=== PATIENT | female | born 1995 | race Caucasian/White ===

== ENCOUNTER 2020-01-21 23:22 | Emergency (ER) | payer SELFPAY ==
[2020-01-22 00:47] VITALS: BP 111/66; PULSE 69; RESP 18; TEMP 36.6; O2SAT 99; BMI 22.1
== END 2020-01-22 01:53 ==
LOC: ER 23:28
PROVIDERS: Emergency Provider Emergency Medicine; PCP Family Medicine
DX: Z53.21 Procedure and treatment not carried out due to patient leaving prior to being seen by health care provider (principal)
CPT/HCPCS: 99281

== ENCOUNTER 2020-02-16 05:21 | Emergency (ER) | payer SELFPAY ==
[2020-02-16 05:24] VITALS: BP 117/69; PULSE 67; RESP 18; TEMP 37; O2SAT 99; BMI 23.0
--- NOTE | 2020-02-16 05:37 | XRR_ITS ---
PROCEDURE INFORMATION: Exam: XR Chest, 2 Views Exam date and time: 02/16/2020 6:00 AM Age: 25 years old Clinical indication: Cough TECHNIQUE: Imaging protocol: XR of the chest Views: 2 views. COMPARISON: CR Chest 1 [place] [id number] 04/08/2019 9:14 PM FINDINGS: Lungs: Hyperinflation, without acute infiltrate. Pleural space: No pleural effusion. Heart/Mediastinum: No cardiomegaly. Bones/joints: Unremarkable. XR/XR chest 2V* [id number] IMPRESSION: Hyperinflation, without acute infiltrate.
--- NOTE | 2020-02-16 05:37 | ECG_ITS ---
[facility] Test Date: 2020-02-16 Pat Name: Autumn Cochran Department: Room: Gender: Female Sales Data Analyst: : 1995 Requested By: Teddy Marin Order Number: [id number] Saravia MD: Kat Harkins M.D. Measurements Intervals Grace Rate: 57 P: 56 MN: 143 QRS: 79 QRSD: 83 T: 57 QT: 400 QTc: 391 Interpretive Statements SINUS BRADYCARDIA WITH SINUS ARRHYTHMIA No previous ECG available for comparison Electronically Signed On 02-16-2020 8:23:45 CDT by Kat Harkins M.D. [email or web address]
--- NOTE | 2020-02-16 05:38 | PC.NURSE ---
patient states she started feeling sick about a week ago with a sore throat and sinus drainage. patient states that she started having a cough three days ago and then today woke up gasping for breath.
[2020-02-16 05:45] VITALS: BP 114/70; PULSE 62; RESP 16; O2SAT 97
[2020-02-16 06:42] LABS: SARS Covid-2 Antigen Negative (Negative)
--- NOTE | 2020-02-16 06:47 | ED_ITS ---
HPI - URI/Sore Throat General: Chief Complaint: Upper Respiratory Infection Stated Complaint: cp/sob Time Seen by Provider: 02/16/20 06:03 Source: patient Mode of arrival: ambulatory Limitations: no limitations History of Present Illness: HPI Narrative: Autumn is a nice 25-year-old female who comes in complaining of cough and shortness of breath. Her cough is dry nonproductive. She had chest pain with her cough earlier today. She denies any leg pain or swelling. She is unaware of any fevers or chills. Chest pains related right to her retrosternal area and is described as sharp and intermittent in nature. Symptoms have been going on for about the past 3 days but the chest pain and shortness of breath just started today. Patient is unaware of any exacerbating or alleviating factors and she is not tried anything at home for this prior to coming in. Patient has no known COVID-19 exposures. Associated symptoms: Reports chest pain; Deny abdominal pain, chills, diarrhea, fever(s), headache(s), nausea or vomiting Review of Systems Const: Denies: fever(s), chills or body aches Eyes: Denies: change in vision ENMT: Denies: throat pain Card: Reports: chest pain; Denies: palpitations, syncope, pre-syncope or dyspnea on exertion Resp: Reports: dyspnea and non-productive cough; Denies: productive cough GI: Denies: abdominal pain, nausea, vomiting or diarrhea : Denies: flank pain, dysuria, urinary frequency or urinary urgency Musc: Denies: neck pain, back pain or extremity pain Skin/Breast: Denies: rash or pruritus Neuro: Denies: headache(s), numbness in extremities, weakness in extremities or dizziness Sam/Lymph: Denies: easy bruising or easy bleeding All/Imm: Denies: urticaria PFSH ED PFSH: Medical History (Updated 02/16/20 @ 08:01 by Fiordaliza Taylor) No pertinent past medical history Surgical History (Updated 02/16/20 @ 06:49 by Fiordaliza Taylor) No pertinent past surgical history Physical Exam Const: COMMON NORMALS: no acute distress, patient oriented x3, no limitations, healthy appearing and well nourished GENERAL APPEARANCE: cooperative, well kempt and well developed HENMT: COMMON NORMALS: normocephalic, atraumatic, external ears normal, EAC's normal and Normal external nose present HEAD & SCALP: normal to inspection, normocephalic and atraumatic FACE & SINUS: normal facial exam and face symmetric NOSE: Normal external nose present and Normal nares present EXTERNAL EAR: Yes external ears normal EXTERNAL AUDITORY CANAL: EAC's normal MOUTH: Normal oral and palatal mucosa present, lip normal and tongue normal Eye: COMMON NORMALS: Equal, round and reactive pupils present and conjunctivae normal GENERAL EYE: appearance normal, both eyes and all related structures ALIGNMENT: Yes alignment normal PERIORBITAL: periorbital findings normal EYELID: eyelids normal CONJUNCTIVA: Yes conjunctivae normal SCLERA: sclerae normal PUPIL: Yes Equal, round and reactive pupils present Neck/C-Spine: COMMON NORMALS: full ROM, no lymphadenopathy, supple, no meningeal signs and no JVD GENERAL: Yes normal visual inspection and Yes trachea midline Chest: COMMONS NORMALS: normal inspection of the chest and normal palpation of entire chest wall Resp: COMMON NORMALS: normal respiratory effort, No retractions and No use of accessory muscles EFFORT & INSPECTION: Yes able to speak in complete sentences and Yes symmetric chest movement AUSCULTATION: no crackles, no rales, no rhonchi and no wheezes Cardio: COMMON NORMALS: no JVD, regular rate, regular rhythm, S1 normal heart sound present and S2 normal heart sound present RATE: regular rate RHYTHM: regular rhythm HEART SOUNDS: S1 normal heart sound present, S2 normal heart sound present, no click, no gallops, no murmurs, no rubs and abnormal split S2 GI: COMMON NORMALS: Soft to palpation and No hepatosplenomegaly present PALPATION: Yes Soft to palpation, No Tenderness to palpation present (GI), No Guarding due to palpation present (GI), No Rigid due to palpation, Yes No hepatosplenomegaly present, No Hernia present, No Palpable mass present and No Pulsatile mass present : COMMON NORMALS: Yes no CVA tenderness BLADDER/KIDNEY EXAM: Yes no CVA tenderness EXTERNAL FEMALE EXAM: No Hernia present Back/Pelvis: COMMON NORMALS: no CVA tenderness, thoracic and lumbar spine normal to inspection, no thoracic nor lumbar tenderness and thoraco-lumbar ROM normal Extremity: COMMON NORMALS: normal to inspection, full ROM, capillary refill normal, no joint enlargement, no clubbing, cyanosis or edema and no calf tenderness Neuro: COMMON NORMALS: patient oriented x3, CN's II-XII intact bilaterally, moves all extremities, no focal motor deficits and no sensory deficits noted MENINGEAL SIGNS: Yes no meningeal signs SPEECH: speech normal Psych: COMMON NORMALS: mental status grossly normal, Normal thought process present, cooperative, normal affect, speech normal and activity/motor behavior normal APPEARANCE: Yes well kempt SPEECH: Yes normal speech THOUGHT PROCESS: Normal thought process present Skin: COMMON NORMALS: no rashes or lesions noted, turgor normal, no jaundice, no petechiae and no mottling GENERAL SKIN EXAM: no rashes or lesions noted and turgor normal Course Vital Signs: Vital signs: Vital Signs Temperature 98.6 F 02/16/20 05:24 Pulse Rate 47 L 02/16/20 08:05 Respiratory Rate 14 02/16/20 08:05 Blood Pressure 94/55 02/16/20 08:05 Pulse Oximetry 99 02/16/20 08:05 MDM - URI/Sore Throat MDM Narrative: Medical decision making narrative: Autumn is a nice 25-year-old female who comes in with [employer]. Her COVID-19 test is negative, she has no flu and her chest x-ray is clear so there is no pneumonia. She denies any abdominal discomfort. She complained of some shortness of breath but an EKG shows a normal sinus rhythm and her blood pressure is stable. At this time I see no sign of urinary tract infection or acute infectious etiology. I have informed her and I believe her symptoms are likely due to a viral infection that we cannot specifically test for. The patient is in agreement with that and feels like when she has had the flu in the past. She denies any other complaints or concerns at this time would like to be discharged. She does agree to return should her symptoms change or worsen but at this time she is feeling better and would like to go home. Lab Data: Attestation: I reviewed the patient's lab results. Labs: Lab Results 02/16/20 02/16/20 02/16/20 Range/Units 06:00 06:38 06:38 WBC 9.9 (4.0-10.0) 10^3/ uL RBC 4.17 (4.1-5.3) 10^6/u L Hgb 13.2 (11.5-15.3) g/dL Hct 40.1 (37.0-47.0) % MCV 96.2 (81-99) fL MCH 31.7 (28.0-34.0) pg MCHC 32.9 (30.0-36.0) g/dL RDW 12.1 (12.1-15.1) % Plt Count 274 (130-400) 10^3/c mm MPV 9.9 (7.4-10.4) fL Neut % (Auto) 56.0 % Lymph % (Auto) 32.0 % Lawrence % (Auto) 9.0 % Eos % (Auto) 2.3 % Baso % (Auto) 0.4 % Neut # (Auto) 5.55 (1.8-7.7) 10^3/u L Lymph # (Auto) 3.2 (0.8-4.8) 10^3/u L Lawrence # (Auto) 0.9 (0.2-0.9) 10^3/u L Eos # (Auto) 0.2 (0.0-0.8) 10^3/u L Baso # (Auto) 0.0 (0.0-0.1) 10^3/u L Nucleated RBC % (a uto) 0 % Nucleated RBCs # 0.0 /100WBC Sodium 140 (136-145) mmol/L Potassium 4.3 (3.5-5.1) mmol/L Chloride 104 (98-107) mmol/L Carbon Dioxide 27 (22-29) mmol/L Anion Gap 13.3 (5-19) BUN 13 (6-20) mg/dL Creatinine 0.7 (0.5-0.9) mg/dL GFR Calculation 100.4 (90-130) mL/min Glucose 97 (65-115) mg/dL Calculated Osmolal ity 286 (285-295) mOsm/k g Lactic Acid (0.5-2.2) mmol/L Calcium 9.7 (8.5-10.5) mg/dL Magnesium 1.9 (1.7-2.3) mg/dL Total Bilirubin 0.6 (0.15-1.2) mg/dL AST 19 (0-32) U/L ALT 12 (0-33) U/L Alkaline Phosphata se 56 (35-105) IU/L Troponin T Gen 5 n g/L (0-10) ng/L Total Protein 6.5 L (6.6-8.7) g/dL Albumin 4.7 (3.5-5.2) g/dL Globulin 1.8 (1.3-4.6) g/dL HCG, Qual (Negative) Urine Color (Yellow) Urine Appearance (CLEAR) Urine pH (5-7) Ur Specific Gravit y (1.005-1.030) Urine Protein (Negative) Urine Glucose (UA) (Normal) Urine Ketones (Negative) Urine Blood (Negative) Urine Nitrate (Negative) Urine Bilirubin (NEGATIVE) Urine Urobilinogen (Negative) mg/dL Ur Leukocyte Whit ase (Negative) SARS-CoV-2 Ag (Rap id) Negative (Negative) 02/16/20 02/16/20 02/16/20 Range/Units 06:38 06:38 06:38 WBC (4.0-10.0) 10^3/ uL RBC (4.1-5.3) 10^6/u L Hgb (11.5-15.3) g/dL Hct (37.0-47.0) % MCV (81-99) fL MCH (28.0-34.0) pg MCHC (30.0-36.0) g/dL RDW (12.1-15.1) % Plt Count (130-400) 10^3/c mm MPV (7.4-10.4) fL Neut % (Auto) % Lymph % (Auto) % Lawrence % (Auto) % Eos % (Auto) % Baso % (Auto) % Neut # (Auto) (1.8-7.7) 10^3/u L Lymph # (Auto) (0.8-4.8) 10^3/u L Lawrence # (Auto) (0.2-0.9) 10^3/u L Eos # (Auto) (0.0-0.8) 10^3/u L Baso # (Auto) (0.0-0.1) 10^3/u L Nucleated RBC % (a uto) % Nucleated RBCs # /100WBC Sodium (136-145) mmol/L Potassium (3.5-5.1) mmol/L Chloride (98-107) mmol/L Carbon Dioxide (22-29) mmol/L Anion Gap (5-19) BUN (6-20) mg/dL Creatinine (0.5-0.9) mg/dL GFR Calculation (90-130) mL/min Glucose (65-115) mg/dL Calculated Osmolal ity (285-295) mOsm/k g Lactic Acid 1.1 (0.5-2.2) mmol/L Calcium (8.5-10.5) mg/dL Magnesium (1.7-2.3) mg/dL Total Bilirubin (0.15-1.2) mg/dL AST (0-32) U/L ALT (0-33) U/L Alkaline Phosphata se (35-105) IU/L Troponin T Gen 5 n g/L 6 (0-10) ng/L Total Protein (6.6-8.7) g/dL Albumin (3.5-5.2) g/dL Globulin (1.3-4.6) g/dL HCG, Qual Negative (Negative) Urine Color (Yellow) Urine Appearance (CLEAR) Urine pH (5-7) Ur Specific Gravit y (1.005-1.030) Urine Protein (Negative) Urine Glucose (UA) (Normal) Urine Ketones (Negative) Urine Blood (Negative) Urine Nitrate (Negative) Urine Bilirubin (NEGATIVE) Urine Urobilinogen (Negative) mg/dL Ur Leukocyte Whit ase (Negative) SARS-CoV-2 Ag (Rap id) (Negative) 02/16/20 Range/Units 07:30 WBC (4.0-10.0) 10^3/ uL RBC (4.1-5.3) 10^6/u L Hgb (11.5-15.3) g/dL Hct (37.0-47.0) % MCV (81-99) fL MCH (28.0-34.0) pg MCHC (30.0-36.0) g/dL RDW (12.1-15.1) % Plt Count (130-400) 10^3/c mm MPV (7.4-10.4) fL Neut % (Auto) % Lymph % (Auto) % Lawrence % (Auto) % Eos % (Auto) % Baso % (Auto) % Neut # (Auto) (1.8-7.7) 10^3/u L Lymph # (Auto) (0.8-4.8) 10^3/u L Lawrence # (Auto) (0.2-0.9) 10^3/u L Eos # (Auto) (0.0-0.8) 10^3/u L Baso # (Auto) (0.0-0.1) 10^3/u L Nucleated RBC % (a uto) % Nucleated RBCs # /100WBC Sodium (136-145) mmol/L Potassium (3.5-5.1) mmol/L Chloride (98-107) mmol/L Carbon Dioxide (22-29) mmol/L Anion Gap (5-19) BUN (6-20) mg/dL Creatinine (0.5-0.9) mg/dL GFR Calculation (90-130) mL/min Glucose (65-115) mg/dL Calculated Osmolal ity (285-295) mOsm/k g Lactic Acid (0.5-2.2) mmol/L Calcium (8.5-10.5) mg/dL Magnesium (1.7-2.3) mg/dL Total Bilirubin (0.15-1.2) mg/dL AST (0-32) U/L ALT (0-33) U/L Alkaline Phosphata se (35-105) IU/L Troponin T Gen 5 n g/L (0-10) ng/L Total Protein (6.6-8.7) g/dL Albumin (3.5-5.2) g/dL Globulin (1.3-4.6) g/dL HCG, Qual (Negative) Urine Color Yellow (Yellow) Urine Appearance Clear (CLEAR) Urine pH 7 (5-7) Ur Specific Gravit y 1.005 (1.005-1.030) Urine Protein Neg (Negative) Urine Glucose (UA) Norm (Normal) Urine Ketones Negative (Negative) Urine Blood Neg (Negative) Urine Nitrate Negative (Negative) Urine Bilirubin Neg (NEGATIVE) Urine Urobilinogen Norm (Negative) mg/dL Ur Leukocyte Whit ase Negative (Negative) SARS-CoV-2 Ag (Rap id) (Negative) Imaging Data^: CXR: My impression: No acute cardiopulmonary findings. EKG Data^: EKG 1: Attestation: I personally reviewed and interpreted this EKG as follows: EKG interpretation date: 02/16/20 EKG interpretation time: 05:42 Interpretation: Sinus bradycardia at 57 beats a minute, normal axis, no blocks, normal intervals, no acute ST or T wave changes. Discharge Plan Discharge Patient Disposition: Home Clinical Impression: Viral infection Condition: Stable Prescriptions: No Action No Known Home Medications RF: 0 Discharge Orders: Discharge Order (Routine); Ordered 02/16/20 Ordered By: Fiordaliza Taylor Referrals: Jamarcus Lake MD [Physician] - 1-3 days Discharge Diet: Advance as tolerated Discharge Activity: Increase activity as tolerated Patient Instructions: Viral Syndrome (ED) Activity Restrictions/Additional Instructions: Please return to the ER immediately for any of the signs or symptoms listed on your discharge instruction sheets, worsening/changing of your symptoms, you are not getting better as quickly as expected, or for ANY other cause or concerns. Please return to the ER for worsening of your cough, worsening of your weakness, uncontrolled fever or for any other cause for concern. Be certain to follow-up with your doctor or with Dr. Lake for recheck and further evaluation and care. Discharge Date/Time: 02/16/20 08:06 Coding Level of Care Code ED [employer] Evaluator for Chg Fwd Exam Comprehensive
[2020-02-16] MEDS: ondansetron 2 mg/ML SDV 2 mL 4 MG IVP (06:54)
[2020-02-16] MEDS: sodium chloride 0.9% 1,000 ML 999 ML IV ×2 (06:54→07:36)
--- NOTE | 2020-02-16 06:57 | PC.NURSE ---
patient placed on covid precautions per protocol.
[2020-02-16 07:10] LABS: Basophils % 0.4 %; Eosinophils # 0.2 10^3/uL (0.0-0.8); Eosinophils % 2.3 %; Hematocrit 40.1 % (37.0-47.0); Hemoglobin 13.2 g/dL (11.5-15.3); Lymphocytes # 3.2 10^3/uL (0.8-4.8); Mean Corpuscular HGB Conc 32.9 g/dL (30.0-36.0); Mean Corpuscular Hemoglobin 31.7 pg (28.0-34.0); Mean Corpuscular Volume 96.2 fL (81-99); Mean Platelet Volume 9.9 fL (7.4-10.4); Monocytes # 0.9 10^3/uL (0.2-0.9); Neutrophils # 5.55 10^3/uL (1.8-7.7); Nucleated Red Blood Cells % 0 %; Platelet Count 274 10^3/cmm (130-400); Red Blood Count 4.17 10^6/uL (4.1-5.3); Red Cell Distribution Width 12.1 % (12.1-15.1); White Blood Count 9.9 10^3/uL (4.0-10.0)
[2020-02-16 07:26] LABS: HCG, Serum Qual Negative (Negative)
[2020-02-16 07:32] LABS: Albumin Level 4.7 g/dL (3.5-5.2); Alkaline Phosphatase 56 IU/L (35-105); Chloride 104 mmol/L (98-107); Lactic Sepsis W/Reflex 1.1 mmol/L (0.5-2.2); Potassium 4.3 mmol/L (3.5-5.1); Sodium 140 mmol/L (136-145)
[2020-02-16 07:34] LABS: Troponin T (5th) Once 6 ng/L (0-10)
[2020-02-16 07:41] VITALS: BP 116/80; PULSE 50; RESP 18; O2SAT 98
[2020-02-16 07:44] LABS: Add Urine Microscopic? NO
[2020-02-16 07:52] LABS: Bilirubin Urine Neg (NEGATIVE); Blood Urine Neg (Negative); Glucose Urine UA Norm (Normal); Ketones Urine Negative (Negative); Leukocyte Esterase Urine Negative (Negative); Nitrate Urine Negative (Negative); Protein Urine Neg (Negative); Specific Gravity, Urine 1.005 (1.005-1.030); Urine Appearance Clear (CLEAR); Urine Color Yellow (Yellow); Urobilinogen Urine Norm (Negative); pH Urine 7 (5-7)
[2020-02-16 07:54] LABS: Alanine Aminotransferase 12 U/L (0-33); Anion Gap 13.3 (5-19); Aspartate Amino Transferase 19 U/L (0-32); Blood Urea Nitrogen 13 mg/dL (6-20); Calcium 9.7 mg/dL (8.5-10.5); Carbon Dioxide 27 mmol/L (22-29); Creatinine Clr Calc Pharmacy 104.8675; Globulin 1.8 g/dL (1.3-4.6); Glomerular Filtration Rate 100.4 mL/min (90-130); Glucose 97 mg/dL (65-115); Magnesium 1.9 mg/dL (1.7-2.3); Osmolality Calculated 286 mOsm/kg (285-295); Total Bilirubin 0.6 mg/dL (0.15-1.2); Total Protein 6.5 g/dL (6.6-8.7)
[2020-02-16 08:05] VITALS: BP 94/55; PULSE 47; RESP 14; O2SAT 99
== END 2020-02-16 08:06 | disposition home or self-care (01) ==
PROVIDERS: Emergency Medicine; Emergency Provider Emergency Medicine
DX: B34.9 Viral infection, unspecified (principal)
CPT/HCPCS: 12345; 71046; 80053; 81003; 83605; 83735; 84484; 84703; 85025; 87426; 93005; 96361; 96374; 96375; 99284; J2405; J7030

== ENCOUNTER 2020-08-23 14:17 | Emergency (ER) | payer OTHER, SELFPAY ==
[2020-08-23 14:50] VITALS: BP 109/58; PULSE 76; RESP 14; TEMP 36.4; O2SAT 100; BMI 23.0
--- NOTE | 2020-08-23 15:12 | CTR_ITS ---
PROCEDURE INFORMATION: Exam: CT Abdomen And Pelvis Without Contrast Exam date and time: 08/23/2020 3:27 PM Age: 25 years old Clinical indication: Abdominal pain; Left; Prior surgery; Surgery date: 6+ months; Surgery type: Appy; Patient HX: C/O L flank/llq pain; Additional info: Flank pain TECHNIQUE: Imaging protocol: Computed tomography of the abdomen and pelvis without contrast. Radiation optimization: All CT scans at this facility use at least one of these dose optimization techniques: automated exposure control; mA and/or kV adjustment per patient size (includes targeted exams where dose is matched to clinical indication); or iterative reconstruction. COMPARISON: US pelvic with transvaginal 02/03/2019 6:01 PM RADIATION DOSE METRICS: Total DLP (mGy-cm): 688 FINDINGS: Liver: Normal. No mass. Gallbladder and bile ducts: Normal. No calcified stones. No ductal dilation. Pancreas: Normal. No ductal dilation. Spleen: Normal. No splenomegaly. Adrenal glands: Normal. No mass. Kidneys and ureters: 1 mm nonobstructing left kidney interpolar stone. No perinephric inflammation. No renal edema. No hydronephrosis. Stomach and bowel: No focal bowel wall inflammation. Negative for bowel obstruction or perforation. Appendix: Appendectomy. Intraperitoneal space: No intraperitoneal fluid collection. Vasculature: Unremarkable. No abdominal aortic aneurysm. Lymph nodes: Unremarkable. No enlarged lymph nodes. Urinary bladder: Unremarkable as visualized. Reproductive: Unremarkable as visualized. Bones/joints: Unremarkable. No acute fracture. Soft tissues: Unremarkable. CT/CT kidney stone [id number] IMPRESSION: 1. Negative CT of the abdomen and pelvis. No acute pathology identified. 2. Tiny left kidney nonobstructing stone. Radiation Dose CTDIVOL = (mGy): DLP = 688 (mGy-cm)
--- NOTE | 2020-08-23 15:14 | ED_ITS ---
HPI - Abdominal Pain General: Chief Complaint: Abdominal Pain Stated Complaint: stomach pains, making dizzy and faint Time Seen by Provider: 08/23/20 15:07 Source: patient, family and RN notes reviewed Limitations: no limitations History of Present Illness: HPI narrative: This patient presents to the emergency department complaining of lower left abdominal pain and left flank pain radiating to the lower abdominal pain. States has been going on for about 5 days. Patient states she has chronic issues with intermittent diarrhea related to lactose intolerance. Patient states this is her second. In 1 month. But describes vaginal bleeding is light at this time. Will do medical evaluation treat as needed patient denies nausea vomiting MD elicited complaint: abdominal pain and flank pain Pertinent past history: none Onset (ago): day(s) (5) Pain Consistency: intermittent Location: L flank Severity: moderate Associated Symptoms: Denies chills, dysuria, fever(s), nausea and vomiting Review of Systems General: Reports: 10 or more systems reviewed and unremarkable except in HPI and below Const: Denies: fever(s), chills, body aches or fatigue Eyes: Denies: change in vision or blurry vision ENMT: Denies: throat pain, hoarseness or mouth pain Card: Denies: chest pain, palpitations, irregular heart rhythm, edema, swelling of feet/ankles or lightheadedness Resp: Denies: dyspnea, productive cough, non-productive cough, wheezing or pain on inspiration GI: Reports: abdominal pain; Denies: nausea or vomiting : Reports: flank pain; Denies: difficulty voiding, dysuria, urinary frequency, urinary urgency or urinary hesitancy Musc: Denies: neck pain, back pain, extremity pain, extremity swelling, joint pain, joint swelling, joint redness, joint warmth or limited range of motion Skin/Breast: Denies: rash, pruritus, erythema or skin tenderness Neuro: Denies: headache(s), numbness in extremities or weakness in extremities Psych: Denies: anxiety or depression PFSH ED PFSH: Medical History No pertinent past medical history Surgical History No pertinent past surgical history Physical Exam Const: COMMON NORMALS: no acute distress, average body habitus, patient oriented x3, no limitations, healthy appearing, alert and well nourished HENMT: COMMON NORMALS: normocephalic, atraumatic, hearing grossly normal bilaterally, external ears normal, EAC's normal, TM's normal bilaterally, Normal external nose present, Normal nasal mucous membranes and turbinates present, moist oral mucous membranes, oropharynx normal, dentition normal and gingiva normal HEAD & SCALP: normocephalic and atraumatic NOSE: Normal external nose present and Normal nasal mucous membranes and turbinates present EXTERNAL EAR: Yes external ears normal EXTERNAL AUDITORY CANAL: EAC's normal TYMPANIC MEMBRANE: TM's normal bilaterally Neck/C-Spine: COMMON NORMALS: full ROM, no lymphadenopathy, supple, no meningeal signs, no JVD, Thyroid normal and No carotid bruits THYROID: Thyroid normal Chest: COMMONS NORMALS: normal inspection of the chest, normal palpation of entire chest wall, normal inspection of the breasts and normal palpation of the breasts Breast/axilla inspection: Yes normal inspection of the breasts BREAST/AXILLA PALPATION: Yes normal palpation of the breasts Resp: COMMON NORMALS: normal respiratory effort, No retractions, No use of accessory muscles, clear to auscultation bilaterally and percussion normal AUSCULTATION: clear to auscultation bilaterally PERCUSSION: percussion normal Cardio: COMMON NORMALS: no JVD, regular rate, regular rhythm, S1 normal heart sound present, S2 normal heart sound present, No gallops present (Cardio), No clicks present (Cardio), No murmurs present (Cardio), No rub (Cardio) and Peripheral pulses 2+ throughout RATE: regular rate RHYTHM: regular rhythm HEART SOUNDS: S1 normal heart sound present and S2 normal heart sound present PERIPHERAL PULSES: Peripheral pulses 2+ throughout GI: COMMON NORMALS: Normal to inspection, nondistended, normoactive bowel sounds present, Soft to palpation, non-tender, No hepatosplenomegaly present, no masses and no bruits PALPATION: Yes Soft to palpation and Yes No hepatosplenomegaly present : COMMON NORMALS: Yes no CVA tenderness, Yes normal external appearance, Yes normal appearance of the vagina, Yes normal appearance of the cervix, Yes normal bimanual exam, Yes No adnexal tenderness and Yes no masses BLADDER/KIDNEY EXAM: Yes no CVA tenderness BIMANUAL EXAM - VAGINA & UTERUS: Yes normal bimanual exam Back/Pelvis: COMMON NORMALS: no CVA tenderness, thoracic and lumbar spine normal to inspection, no thoracic nor lumbar tenderness, thoraco-lumbar ROM normal and straight leg raise negative bilaterally Extremity: COMMON NORMALS: normal to inspection, full ROM, capillary refill normal, no joint enlargement, no clubbing, cyanosis or edema, no calf tenderness and no pedal edema Neuro: COMMON NORMALS: patient oriented x3 SENSORIUM/ORIENTATION: Yes alert MENINGEAL SIGNS: Yes no meningeal signs Course Reevaluation(s): Reevaluation #1: Patient feeling much improved after medications. No acute findings on evaluation in the emergency department. Patient does have 3+ blood in the urine most likely did pass a recent kidney stone. But also patient has had dysfunctional uterine bleeding. Patient instructed to follow-up with primary care physician in 2 to 3 days. Continue home medications. Take prescriptions as prescribed. Return to the emergency department as needed. Time: 16:50 Vital Signs: Vital signs: Vital Signs Temperature 97.5 F L 08/23/20 14:50 Pulse Rate 81 08/23/20 15:45 Respiratory Rate 18 08/23/20 15:45 Blood Pressure 108/58 08/23/20 15:45 Pulse Oximetry 100 08/23/20 15:45 MDM - Abdominal Pain MDM Narrative: Medical decision making narrative: Patient presents to the emergency department complaining of dysfunctional uterine bleeding. Patient also had a CT scan in the emergency department complaint of left side pain radiating from the flank. Differential Diagnosis: Differential diagnosis abdominal pain: Likely abdominal pain, acute appendicitis, calculus of kidney, constipation, diverticulitis, endometriosis, gastroenteritis, pancreatitis and small bowel obstruction Medical Records: Attestation: I reviewed the patient's medical records. Lab Data: Attestation: I reviewed the patient's lab results. Labs: Lab Results 08/23/20 08/23/20 08/23/20 Range/Units 15:16 15:16 15:30 WBC 9.5 (4.0-10.0) 10^3/ uL RBC 4.66 (4.1-5.3) 10^6/u L Hgb 14.7 (11.5-15.3) g/dL Hct 43.6 (37.0-47.0) % MCV 93.6 (81-99) fL MCH 31.5 (28.0-34.0) pg MCHC 33.7 (30.0-36.0) g/dL RDW 12.2 (12.1-15.1) % Plt Count 356 (130-400) 10^3/c mm MPV 10.0 (7.4-10.4) fL Neut % (Auto) 55.0 % Lymph % (Auto) 31.3 % [place] % (Auto) 10.5 % Eos % (Auto) 2.5 % Baso % (Auto) 0.5 % Neut # (Auto) 5.21 (1.8-7.7) 10^3/u L Lymph # (Auto) 3.0 (0.8-4.8) 10^3/u L [place] # (Auto) 1.0 H (0.2-0.9) 10^3/u L Eos # (Auto) 0.2 (0.0-0.8) 10^3/u L Baso # (Auto) 0.1 (0.0-0.1) 10^3/u L Nucleated RBC % (a uto) 0 % Nucleated RBCs # 0.0 /100WBC Anion Gap (5-19) BUN (6-20) mg/dL Creatinine (0.5-0.9) mg/dL Glucose (65-115) mg/dL Calcium (8.5-10.5) mg/dL Total Bilirubin (0.15-1.2) mg/dL AST (0-32) U/L ALT (0-33) U/L Alkaline Phosphata se (35-105) IU/L Total Protein (6.6-8.7) g/dL Albumin (3.5-5.2) g/dL Globulin (1.3-4.6) g/dL Lipase (13-60) U/L HCG, Qual Negative (Negative) Urine Color Yellow (Yellow) Urine Appearance Sl hazy (CLEAR) Urine pH 5 (5-7) Ur Specific Gravit y 1.020 (1.005-1.030) Urine Protein Neg (Negative) Urine Glucose (UA) Norm (Normal) Urine Ketones Negative (Negative) Urine Blood 3+ H (Negative) Urine Nitrate Negative (Negative) Urine Bilirubin Neg (Negative) Prot Sulfosalicyli c Acd Negative (Negative) Urine Urobilinogen 1 H (Negative) mg/dL Ur Leukocyte Whit ase Trace H (Negative) Urine RBC 10-15 H (0-2) /hpf Urine WBC 5-10 H (0-5) /hpf Ur Squamous Epith Cells 5-10 H (0-5) /hpf Amorphous Sediment Not Reportable Urine Bacteria 1+ H (NONE) /hpf Urine Mucus 2+ /hpf 08/23/20 Range/Units 15:30 WBC (4.0-10.0) 10^3/ uL RBC (4.1-5.3) 10^6/u L Hgb (11.5-15.3) g/dL Hct (37.0-47.0) % MCV (81-99) fL MCH (28.0-34.0) pg MCHC (30.0-36.0) g/dL RDW (12.1-15.1) % Plt Count (130-400) 10^3/c mm MPV (7.4-10.4) fL Neut % (Auto) % Lymph % (Auto) % [place] % (Auto) % Eos % (Auto) % Baso % (Auto) % Neut # (Auto) (1.8-7.7) 10^3/u L Lymph # (Auto) (0.8-4.8) 10^3/u L [place] # (Auto) (0.2-0.9) 10^3/u L Eos # (Auto) (0.0-0.8) 10^3/u L Baso # (Auto) (0.0-0.1) 10^3/u L Nucleated RBC % (a uto) % Nucleated RBCs # /100WBC Anion Gap 12.4 (5-19) BUN 13 (6-20) mg/dL Creatinine 0.5 (0.5-0.9) mg/dL Glucose 81 (65-115) mg/dL Calcium 10.0 (8.5-10.5) mg/dL Total Bilirubin 0.4 (0.15-1.2) mg/dL AST 24 (0-32) U/L ALT 19 (0-33) U/L Alkaline Phosphata se 87 (35-105) IU/L Total Protein 7.3 (6.6-8.7) g/dL Albumin 4.6 (3.5-5.2) g/dL Globulin 2.7 (1.3-4.6) g/dL Lipase 22 (13-60) U/L HCG, Qual (Negative) Urine Color (Yellow) Urine Appearance (CLEAR) Urine pH (5-7) Ur Specific Gravit y (1.005-1.030) Urine Protein (Negative) Urine Glucose (UA) (Normal) Urine Ketones (Negative) Urine Blood (Negative) Urine Nitrate (Negative) Urine Bilirubin (Negative) Prot Sulfosalicyli c Acd (Negative) Urine Urobilinogen (Negative) mg/dL Ur Leukocyte Whit ase (Negative) Urine RBC (0-2) /hpf Urine WBC (0-5) /hpf Ur Squamous Epith Cells (0-5) /hpf Amorphous Sediment Urine Bacteria (NONE) /hpf Urine Mucus /hpf Imaging Data ^: CT Abd/Pel: Attestation: I personally reviewed and interpreted this imaging study as follows: My impression: No acute findings. Radiologist's impression: No acute findings. Discharge Plan Discharge Patient Disposition: Home Clinical Impression: Flank pain, Abnormal uterine bleeding Condition: Stable Prescriptions: New diclofenac sodium 75 mg tablet,delayed release (DR/EC) 75 mg PO BID PRN (Reason: pain) Qty: 20 RF: 0 Discharge Orders: Discharge ED (Routine); Ordered 08/23/20 Ordered By: Sandro Elena Discharge Diet: Advance as tolerated Discharge Activity: Resume usual activity Patient Instructions: Abdominal Pain (ED), Opioid Safety Activity Restrictions/Additional Instructions: Patient instructed to follow-up with primary care physician in 2 to 3 days. Continue home medications. Take prescriptions as prescribed. Return to the emergency department as needed. Coding Level of Care Code ED Air Quality Specialist for Gio Fwnaila Exam Comprehensive
[2020-08-23] MEDS: ondansetron 2 mg/ML SDV 2 mL 4 MG IVP (15:25)
[2020-08-23] MEDS: sodium chloride 0.9% 1,000 ML 999 ML IV (15:25)
[2020-08-23] MEDS: ketorolac 30 mg/mL INJ 15 MG IVP (15:25)
[2020-08-23 15:41] LABS: HCG Qualitative Urine. Negative (Negative)
[2020-08-23 15:45] VITALS: BP 108/58; PULSE 81; RESP 18; O2SAT 100
[2020-08-23 16:02] LABS: Urine Appearance SL Hazy (CLEAR); Urine Color Yellow (Yellow); pH Urine 5 (5-7)
[2020-08-23 16:03] LABS: Add Urine Microscopic? YES; Bilirubin Urine Neg (Negative); Blood Urine 3+ (Negative); Glucose Urine UA Norm (Normal); Ketones Urine Negative (Negative); Leukocyte Esterase Urine Trace (Negative); Nitrate Urine Negative (Negative); Protein Urine Neg (Negative); Sulfosalicylic Acid Urine Negative (Negative); Urobilinogen Urine 1 mg/dL (Negative)
[2020-08-23 16:06] LABS: Bacteria Urine 1+ /hpf; Mucus Urine 2+ /hpf
[2020-08-23 16:07] LABS: Add Urine Culture? Yes
[2020-08-23 16:10] LABS: Basophils # 0.1 10^3/uL (0.0-0.1); Basophils % 0.5 %; Eosinophils # 0.2 10^3/uL (0.0-0.8); Eosinophils % 2.5 %; Hematocrit 43.6 % (37.0-47.0); Hemoglobin 14.7 g/dL (11.5-15.3); Lymphocytes % 31.3 %; Mean Corpuscular HGB Conc 33.7 g/dL (30.0-36.0); Mean Corpuscular Hemoglobin 31.5 pg (28.0-34.0); Mean Corpuscular Volume 93.6 fL (81-99); Monocytes % 10.5 %; Neutrophils # 5.21 10^3/uL (1.8-7.7); Nucleated Red Blood Cells % 0 %; Platelet Count 356 10^3/cmm (130-400); Red Blood Count 4.66 10^6/uL (4.1-5.3); Red Cell Distribution Width 12.2 % (12.1-15.1); White Blood Count 9.5 10^3/uL (4.0-10.0)
[2020-08-23 16:58] LABS: Alanine Aminotransferase 19 U/L (0-33); Albumin Level 4.6 g/dL (3.5-5.2); Alkaline Phosphatase 87 IU/L (35-105); Anion Gap 12.4 (5-19); Aspartate Amino Transferase 24 U/L (0-32); Blood Urea Nitrogen 13 mg/dL (6-20); Carbon Dioxide 30 mmol/L (22-29); Chloride 96 mmol/L (98-107); Globulin 2.7 g/dL (1.3-4.6); Glucose 81 mg/dL (65-115); Lipase 22 U/L (13-60); Osmolality Calculated 279 mOsm/kg (285-295); Potassium 3.4 mmol/L (3.5-5.1); Sodium 135 mmol/L (136-145); Total Bilirubin 0.4 mg/dL (0.15-1.2); Total Protein 7.3 g/dL (6.6-8.7)
[2020-08-23 17:20] VITALS: BP 108/58; PULSE 81; RESP 18; O2SAT 100
== END 2020-08-23 17:21 | disposition home or self-care (01) ==
PROVIDERS: Emergency Provider Emergency Medicine
DX: N93.9 Abnormal uterine and vaginal bleeding, unspecified (principal); R10.9 Unspecified abdominal pain
CPT/HCPCS: 74176; 80053; 81001; 81025; 83690; 85025; 87086; 96361; 96374; 96375; 99283; J1885; J2405; J7030

== ENCOUNTER 2020-10-28 08:34 | Emergency (ER) | payer OTHER, SELFPAY ==
[2020-10-28 08:45] VITALS: BP 137/88; PULSE 79; RESP 20; TEMP 37.4; O2SAT 98; BMI 23.0
--- NOTE | 2020-10-28 08:56 | XR_ITS ---
WS: [id number] Portable AP upright chest, 10/28/2020 Clinical Data: cough and fever Comparison: PA and lateral chest, 02/16/2020. Findings: No nodules, masses or effusions are seen. The heart is normal. The pulmonary vascularity is not increased. No pneumonia or pneumothorax is seen. There are decorator items overlying both breast s. XR/XR chest 1V portable [id number] Impression: Negative chest.
--- NOTE | 2020-10-28 08:56 | ECG_ITS ---
[facility] Test Date: 2020-10-28 Pat Name: Autumn Cochran Department: Room: Gender: Female Paper Deliverer: : 1995 Requested By: Tomas Werner Order Number: [id number] Manjit MD: LUZMA ESPINOZA Measurements Intervals [place] Rate: 66 P: 44 VA: 132 QRS: 81 QRSD: 77 T: 50 QT: 364 QTc: 384 Interpretive Statements SINUS RHYTHM WITH MARKED SINUS ARRHYTHMIA NONSPECIFIC T-WAVE ABNORMALITY Compared to ECG 02/16/2020 05:42:27 T-wave abnormality now present Sinus bradycardia no longer present Electronically Signed On 10-28-2020 19:23:03 CDT by LUZMA ESPINOZA [id number] f
--- NOTE | 2020-10-28 08:58 | ED_ITS ---
HPI - URI/Sore Throat General: Chief Complaint: Upper Respiratory Infection Stated Complaint: HEADACHE, COUGH, DIZZY Time Seen by Provider: 10/28/20 08:49 History of Present Illness: HPI Narrative: Patient is a 21-year-old female comes to the ED with cough, congestion shortness of breath and fever. Patient says symptoms started yesterday. She has symptoms of nasal drainage congestion, dry cough and headache. Patient also describes some mild shortness of breath. She reports a low-grade fever at home. She says she is fallen twice due to feeling dizzy. Denies any loss of consciousness, head trauma or other injury due to fall. Denies any nausea/vomiting, abdominal pain, bladder or bowel symptoms. Patient states no known contacts with Covid 19 positive patient. Associated symptoms: Reports fever(s), headache(s) and nasal congestion; Deny abdominal pain, chills, chest pain, diarrhea, nausea, sinus pain or vomiting Review of Systems Const: Reports: fever(s); Denies: chills or fatigue Eyes: Denies: change in vision or eye discomfort ENMT: Reports: nasal discharge and nasal congestion; Denies: throat pain, odynophagia or sinus pain Card: Denies: chest pain, palpitations, edema, swelling of feet/ankles, dyspnea on exertion or orthopnea Resp: Reports: non-productive cough; Denies: dyspnea or productive cough GI: Denies: abdominal pain, nausea, vomiting, diarrhea, constipation or hematochezia : Denies: flank pain, dysuria or hematuria Musc: Denies: neck pain, back pain or extremity swelling Skin/Breast: Denies: rash or new lesions Neuro: Reports: headache(s); Denies: numbness in extremities or weakness in extremities [facility] ED PFSH: Medical History No pertinent past medical history Surgical History No pertinent past surgical history Female Reproductive History: Date of last menstrual period: 10/27/20 Physical Exam Const: COMMON NORMALS: no acute distress, patient oriented x3, healthy appearing and alert GENERAL APPEARANCE: cooperative and comfortable HENMT: COMMON NORMALS: normocephalic HEAD & SCALP: normocephalic FACE & SINUS: normal facial exam; no sinus tenderness NOSE: Nasal discharge present clear MOUTH: Normal oral and palatal mucosa present THROAT: posterior oropharynx normal and uvula midline Neck/C-Spine: COMMON NORMALS: supple GENERAL: Yes normal visual inspection Resp: COMMON NORMALS: normal respiratory effort, No retractions, No use of accessory muscles and clear to auscultation bilaterally EFFORT & INSPECTION: Yes able to speak in complete sentences, No tachypneic, No respiratory distress and No labored AUSCULTATION: clear to auscultation bilaterally Cardio: COMMON NORMALS: regular rate, regular rhythm, S1 normal heart sound present, S2 normal heart sound present, No gallops present (Cardio), No clicks present (Cardio), No murmurs present (Cardio) and Peripheral pulses 2+ throughout RATE: regular rate RHYTHM: regular rhythm HEART SOUNDS: S1 normal heart sound present and S2 normal heart sound present PERIPHERAL PULSES: Peripheral pulses 2+ throughout GI: COMMON NORMALS: Normal to inspection, nondistended, normoactive bowel sounds present, Soft to palpation, non-tender and no masses PALPATION: Yes Soft to palpation : COMMON NORMALS: Yes no CVA tenderness BLADDER/KIDNEY EXAM: Yes no CVA tenderness Back/Pelvis: COMMON NORMALS: no CVA tenderness Extremity: COMMON NORMALS: normal to inspection Neuro: COMMON NORMALS: patient oriented x3 and moves all extremities SENSORIUM/ORIENTATION: Yes alert Skin: GENERAL SKIN EXAM: dry skin Course Vital Signs: Vital signs: Vital Signs Temperature 99.4 F 10/28/20 08:45 Pulse Rate 63 10/28/20 10:44 Respiratory Rate 14 10/28/20 10:44 Blood Pressure 116/67 10/28/20 10:44 Pulse Oximetry 99 10/28/20 10:44 MDM - URI/Sore Throat MDM Narrative: Medical decision making narrative: Patient is a 25-year-old female comes to the ED with cough, shortness of breath and nasal congestion drainage that started yesterday. Patient appears nontoxic on exam and in no acute distress or pain. Lungs are clear to auscultation bilaterally. All labs were unremarkable. Chest x-ray showed no acute findings. Influenza negative. EKG showed normal sinus rhythm with a heart rate of [address] segment elevation or depression seen. Patient diagnosed with upper respiratory infection with cough and congestion and was told to follow-up with her PCP in 7 to 10 days for reevaluation. She was instructed to take [id number] nasal decongestants and to take Tylenol or ibuprofen as needed for fevers. Drink plenty fluids stay hydrated. Return to ED precautions given. Patient understood agree with plan. Lab Data: Attestation: I reviewed the patient's lab results. Labs: Lab Results 10/28/20 10/28/20 10/28/20 Range/Units 09:06 09:06 09:06 WBC 9.2 (4.0-10.0) 10^3/ uL RBC 4.12 (4.1-5.3) 10^6/u L Hgb 13.0 (11.5-15.3) g/dL Hct 39.3 (37.0-47.0) % MCV 95.4 (81-99) fL MCH 31.6 (28.0-34.0) pg MCHC 33.1 (30.0-36.0) g/dL RDW 11.9 L (12.1-15.1) % Plt Count 288 (130-400) 10^3/c mm MPV 9.7 (7.4-10.4) fL Neut % (Auto) 67.3 % Lymph % (Auto) 17.3 % Ray % (Auto) 12.9 % Eos % (Auto) 1.9 % Baso % (Auto) 0.4 % Neut # (Auto) 6.16 (1.8-7.7) 10^3/u L Lymph # (Auto) 1.6 (0.8-4.8) 10^3/u L Ray # (Auto) 1.2 H (0.2-0.9) 10^3/u L Eos # (Auto) 0.2 (0.0-0.8) 10^3/u L Baso # (Auto) 0.0 (0.0-0.1) 10^3/u L Nucleated RBC % (a uto) 0 % Nucleated RBCs # 0.0 /100WBC Sodium 140 (136-145) mmol/L Potassium 3.5 (3.5-5.1) mmol/L Chloride 104 (98-107) mmol/L Carbon Dioxide 28 (22-29) mmol/L Anion Gap 11.5 (5-19) BUN 11 (6-20) mg/dL Creatinine 0.6 (0.5-0.9) mg/dL GFR Calculation 119.9 (90-130) mL/min Glucose 93 (65-115) mg/dL Calculated Osmolal ity 289 (285-295) mOsm/k g Calcium 8.7 (8.5-10.5) mg/dL Total Bilirubin 0.5 (0.15-1.2) mg/dL AST 25 (0-32) U/L ALT 18 (0-33) U/L Alkaline Phosphata se 83 (35-105) IU/L Total Protein 6.1 L (6.6-8.7) g/dL Albumin 3.9 (3.5-5.2) g/dL Globulin 2.2 (1.3-4.6) g/dL HCG, Qual Negative (Negative) Influenza Type A A g (Negative) Influenza Type B A g (Negative) 10/28/20 Range/Units 09:25 WBC (4.0-10.0) 10^3/ uL RBC (4.1-5.3) 10^6/u L Hgb (11.5-15.3) g/dL Hct (37.0-47.0) % MCV (81-99) fL MCH (28.0-34.0) pg MCHC (30.0-36.0) g/dL RDW (12.1-15.1) % Plt Count (130-400) 10^3/c mm MPV (7.4-10.4) fL Neut % (Auto) % Lymph % (Auto) % Ray % (Auto) % Eos % (Auto) % Baso % (Auto) % Neut # (Auto) (1.8-7.7) 10^3/u L Lymph # (Auto) (0.8-4.8) 10^3/u L Ray # (Auto) (0.2-0.9) 10^3/u L Eos # (Auto) (0.0-0.8) 10^3/u L Baso # (Auto) (0.0-0.1) 10^3/u L Nucleated RBC % (a uto) % Nucleated RBCs # /100WBC Sodium (136-145) mmol/L Potassium (3.5-5.1) mmol/L Chloride (98-107) mmol/L Carbon Dioxide (22-29) mmol/L Anion Gap (5-19) BUN (6-20) mg/dL Creatinine (0.5-0.9) mg/dL GFR Calculation (90-130) mL/min Glucose (65-115) mg/dL Calculated Osmolal ity (285-295) mOsm/k g Calcium (8.5-10.5) mg/dL Total Bilirubin (0.15-1.2) mg/dL AST (0-32) U/L ALT (0-33) U/L Alkaline Phosphata se (35-105) IU/L Total Protein (6.6-8.7) g/dL Albumin (3.5-5.2) g/dL Globulin (1.3-4.6) g/dL HCG, Qual (Negative) Influenza Type A A g Negative (Negative) Influenza Type B A g Negative (Negative) Imaging Data^: CXR: Attestation: I personally reviewed and interpreted this imaging study as follows: Radiologist's impression: [address] [address] XRay Report Signed Patient: Autumn Cochran Unit #: [id number] : 1995 Age/Sex: 25 / F ADM Date: 10/28/20 Loc: ER Room/Bed: Attending Dr: Ordering Provider/Ordering MD: Tomas Werner Date of Service: 10/28/20 Procedure(s): XR chest 1V portable [id number] Accession Number(s): [id number] Report Number: [id number] WS: [id number] Portable AP upright chest, 10/28/2020 Clinical Data: cough and fever Comparison: PA and lateral chest, 02/16/2020. Findings: No nodules, masses or effusions are seen. The heart is normal. The pulmonary vascularity is not increased. No pneumonia or pneumothorax is seen. There are decorator items overlying both breasts. XR/XR chest 1V portable [id number] Impression: Negative chest. Dictated By: Jennifer Mcdowell MD Signed By: Jennifer Mcdowell MD Signed Date/Time: 10/28/20929 DD/ 8 EKG Data^: EKG 1: Attestation: I personally reviewed and interpreted this EKG as follows: EKG interpretation date: 10/28/20 Interpretation: Normal sinus rhythm, 66 bpm, no ST segment elevation or depression seen. Discharge Plan Discharge Patient Disposition: Home Clinical Impression: Upper respiratory infection with cough and congestion Condition: Stable Prescriptions: No Action Aleve 220 mg Tablet 220 mg PO PRN RF: 0 diclofenac sodium 75 mg tablet,delayed release (DR/EC) 75 mg PO BID PRN (Reason: pain) Qty: 20 RF: 0 Discharge Orders: Discharge ED (Routine); Ordered 10/28/20 Ordered By: Tomas Werner Discharge Diet: Regular Discharge Activity: Increase activity as tolerated Patient Instructions: Upper Respiratory Infection (ED), Viral Syndrome (ED) Activity Restrictions/Additional Instructions: Follow-up with medical provider as directed in 7 to 10 days for reevaluation. Drink plenty of fluids and stay hydrated. Take [id number] ibuprofen or Tylenol for any pain or fevers. You can also take yxbd-vqw-vixsucu nasal decongestants to help with symptoms as well. Return to the ER or your medical provider if condition worsens. Please read and understand discharge instructions. If any questions, please ask. Stand Alone Forms: Work/School Release Coding Level of Care Code ED Background Check Coordinator for Gio Fwd Exam Comprehensive
[2020-10-28 09:14] VITALS: BP 132/68; PULSE 77; RESP 16; O2SAT 99
[2020-10-28 09:24] LABS: Basophils % 0.4 %; Eosinophils # 0.2 10^3/uL (0.0-0.8); Eosinophils % 1.9 %; Hematocrit 39.3 % (37.0-47.0); Lymphocytes # 1.6 10^3/uL (0.8-4.8); Lymphocytes % 17.3 %; Mean Corpuscular HGB Conc 33.1 g/dL (30.0-36.0); Mean Corpuscular Hemoglobin 31.6 pg (28.0-34.0); Mean Corpuscular Volume 95.4 fL (81-99); Mean Platelet Volume 9.7 fL (7.4-10.4); Monocytes # 1.2 10^3/uL (0.2-0.9); Monocytes % 12.9 %; Neutrophils # 6.16 10^3/uL (1.8-7.7); Neutrophils % 67.3 %; Nucleated Red Blood Cells % 0 %; Platelet Count 288 10^3/cmm (130-400); Red Blood Count 4.12 10^6/uL (4.1-5.3); Red Cell Distribution Width 11.9 % (12.1-15.1); White Blood Count 9.2 10^3/uL (4.0-10.0)
[2020-10-28 09:45] LABS: HCG, Serum Qual Negative (Negative)
[2020-10-28 09:49] LABS: Alanine Aminotransferase 18 U/L (0-33); Albumin Level 3.9 g/dL (3.5-5.2); Alkaline Phosphatase 83 IU/L (35-105); Anion Gap 11.5 (5-19); Aspartate Amino Transferase 25 U/L (0-32); Blood Urea Nitrogen 11 mg/dL (6-20); Calcium 8.7 mg/dL (8.5-10.5); Carbon Dioxide 28 mmol/L (22-29); Chloride 104 mmol/L (98-107); Creatinine Clr Calc Pharmacy 122.3455; Globulin 2.2 g/dL (1.3-4.6); Glomerular Filtration Rate 119.9 mL/min (90-130); Glucose 93 mg/dL (65-115); Osmolality Calculated 289 mOsm/kg (285-295); Potassium 3.5 mmol/L (3.5-5.1); Sodium 140 mmol/L (136-145); Total Bilirubin 0.5 mg/dL (0.15-1.2); Total Protein 6.1 g/dL (6.6-8.7)
[2020-10-28 10:11] LABS: Influenza A by IFA Negative (Negative); Influenza B by IFA Negative (Negative)
[2020-10-28 10:44] VITALS: BP 116/67; PULSE 63; RESP 14; O2SAT 99
== END 2020-10-28 10:44 | disposition home or self-care (01) ==
PROVIDERS: Emergency Provider Physician Assistant
DX: J06.9 Acute upper respiratory infection, unspecified (principal)
CPT/HCPCS: 71045; 80053; 84703; 85025; 87804; 93005; 99283

== ENCOUNTER 2020-12-30 12:03 | Emergency (ER) | payer OTHER, SELFPAY ==
[2020-12-30] VITALS (7 sets, daily range): BP systolic 101–120; BP diastolic 51–76; PULSE 55–72; RESP 16–18; TEMP 36.8; O2SAT 95–100; BMI 23.0
[2020-12-30] MEDS: sodium chloride 0.9% 1,000 ML 999 ML IV (14:09)
[2020-12-30 14:33] LABS: Basophils # 0.1 10^3/uL (0.0-0.1); Basophils % 0.3 %; Eosinophils # 0.2 10^3/uL (0.0-0.8); Eosinophils % 1.6 %; Hematocrit 41.5 % (37.0-47.0); Hemoglobin 13.3 g/dL (11.5-15.3); Lymphocytes # 2.6 10^3/uL (0.8-4.8); Lymphocytes % 17.7 %; Mean Corpuscular Hemoglobin 31.1 pg (28.0-34.0); Mean Corpuscular Volume 97.2 fL (81-99); Mean Platelet Volume 9.5 fL (7.4-10.4); Monocytes # 1.2 10^3/uL (0.2-0.9); Monocytes % 8.3 %; Neutrophils # 10.38 10^3/uL (1.8-7.7); Neutrophils % 71.8 %; Nucleated Red Blood Cells % 0 %; Platelet Count 324 10^3/cmm (130-400); Red Blood Count 4.27 10^6/uL (4.1-5.3); Red Cell Distribution Width 12.1 % (12.1-15.1); White Blood Count 14.5 10^3/uL (4.0-10.0)
[2020-12-30 14:39] LABS: Add Urine Microscopic? YES; Bilirubin Urine Neg (Negative); Blood Urine Neg (Negative); Glucose Urine UA Norm (Normal); Ketones Urine Negative (Negative); Leukocyte Esterase Urine 2+ (Negative); Nitrate Urine Negative (Negative); Protein Urine Neg (Negative); Specific Gravity, Urine 1.015 (1.005-1.030); Urine Appearance Clear (CLEAR); Urine Color Yellow (Yellow); Urobilinogen Urine Norm (Negative); pH Urine 5 (5-7)
[2020-12-30 14:40] LABS: Mucus Urine 1+ /hpf; Squamous Epithelial Cell Urine 0-4 /hpf (0-5); WBC Urine 15-25 /hpf (0-5)
[2020-12-30] MEDS: ketorolac 30 mg/mL INJ 15 MG IVP (14:40)
[2020-12-30 14:42] LABS: Add Urine Culture? Yes; Bacteria Urine 2+ /hpf; RBC Urine 0-4 /hpf (0-2)
[2020-12-30 14:45] LABS: HCG, Serum Qual Negative (Negative)
--- NOTE | 2020-12-30 14:46 | CT_ITS ---
WS: [id number] CT ABDOMEN AND PELVIS WITH CONTRAST HISTORY: left flank pain. Possible pyelonephritis. TECHNIQUE: Imaging performed of the abdomen and pelvis with IV contrast. Single phase imaging of the abdomen. Coronal and sagittal reformats are submitted. All CT scans at [facility] use at least one of these dose optimization techniques: automated exposure control; mA and/or kV adjustment per patient size (includes targeted exams where dose is matched to clinical indication); or iterativ e reconstruction. IV CONTRAST: Omnipaque 300; 95 mL IV. Oral contrast: No DLP: 961.88 mGy.cm COMPARISON: 08/23/2020 Lower thorax: Lung bases are clear. Heart is normal size. No hiatal hernia. Liver/biliary system: Normal size liver. Periportal low attenuation is probably periportal edema. Freeman e ducts are not enlarged. Gallbladder: Normal. No gallstones or wall thickening. No pericholecystic fluid. Pancreas: Normal size pancreas and pancreatic duct. No adjacent inflammation. Spleen: Normal size spleen. No mass or infarct. Adrenal glands: Normal. Right kidney: Normal. Left kidney: Normal. Aorta: Normal. Lymphadenopathy: Small shoddy retroperitoneal lymph nodes. No enlarged lymph nodes. Free fluid: There is a small amount of free fluid in the pelvis. Fluid is slightly more than physiolo gic. Hounsfield units within the fluid are elevated. GI tract: Prior appendectomy. No GI tract obstruction. Abdominal wall: Unremarkable abdominal wall. No hernia. Pelvis: Numerous pelvic varicosities are noted. Slightly greater on the LEFT than the RIGHT. There is increased fluid in the pelvis extending into the adnexa with soft tissue edema. LEFT adnexal cyst me asures 2.9 x 2.0 cm. The uterus is heterogeneous and retroflexed. Bones: Unremarkable. CT/CT abdomen pelvis w con* [id number] IMPRESSION: 1. No evidence for renal obstruction or pyelonephritis. 2. Small amount of free fluid in the cul-de-sac with increased Hounsfield unit s. There is additional soft tissue edema in the pelvis and marked pelvic conges tion. If there are symptoms of pelvic pain consider transvaginal pelvic ultraso und to exclude PID. 3. Prior appendectomy. 4. No GI tract obstruction.
[2020-12-30] MEDS: cefTRIAXone 1,000 MG in sodium chloride 0.9% (plus) 50 ML 100 MG IV (14:51)
[2020-12-30 14:54] LABS: Alanine Aminotransferase 13 U/L (0-33); Albumin Level 4.1 g/dL (3.5-5.2); Alkaline Phosphatase 93 IU/L (35-105); Anion Gap 10.9 (5-19); Aspartate Amino Transferase 19 U/L (0-32); Blood Urea Nitrogen 8 mg/dL (6-20); Calcium 8.8 mg/dL (8.5-10.5); Carbon Dioxide 29 mmol/L (22-29); Chloride 101 mmol/L (98-107); Globulin 2.7 g/dL (1.3-4.6); Glucose 94 mg/dL (65-115); Lipase 12 U/L (13-60); Osmolality Calculated 282 mOsm/kg (285-295); Potassium 3.9 mmol/L (3.5-5.1); Sodium 137 mmol/L (136-145); Total Bilirubin 0.4 mg/dL (0.15-1.2); Total Protein 6.8 g/dL (6.6-8.7)
[2020-12-30 14:55] LABS: Lactate (Lactic Acid level) 1.2 mmol/L (0.5-2.2)
[2020-12-30] MEDS: iohexol 300 mg/mL 100 mL Btl IV (15:56)
--- NOTE | 2020-12-30 16:32 | USR_ITS ---
PROCEDURE INFORMATION: Exam: US Pelvis, Transvaginal Exam date and time: 12/30/2020 4:32 PM Age: 25 years old Clinical indication: Pelvic pain; Prior surgery; Surgery date: 6+ months; Surgery type: Tubal ligation; Additional info: Pid vs ovary issue? TECHNIQUE: Imaging protocol: Real-time transvaginal pelvic ultrasound with image documentation. Transvaginal imaging was used for better evaluation of the endometrium, adnexa, and/or cervix. COMPARISON: 1. US pelvic with transvaginal 02/03/2019 6:01 PM 2. US pelvic with transvaginal 12/13/2016 12:51 PM FINDINGS: Uterus/cervix: Uterus is normal. Endometrial stripe shows fluid collection 3.8 mm. The uterus measures 6.8 cm x 3.4 cm x 4.7 cm Right adnexa: Normal. No mass. Normal ovarian blood flow. 2.1 cm x 2.8 cm x 3.9 cm Left adnexa: Normal. No mass. Normal ovarian blood flow. 2.5 cm x 4.3 cm x 3.9 cm Intraperitoneal space: There is a free fluid collection in the cul-de-sac 1.7 cm x 3.2 cm. Comparison to prior examination a small volume of fluid was seen within the endometrium. The left ovary showed large dominant follicle. The examination is otherwise stable US/US transvaginal [id number] IMPRESSION: 1. Small fluid collection within the endometrium 2. Moderate volume free fluid collection in the cul-de-sac 3. Negative examination of the uterus 4. Negative examination bilateral ovaries
--- NOTE | 2020-12-30 17:20 | ED_ITS ---
HPI - Female Genitourinary General: Chief complaint: Urogenital-Female Stated complaint: L side pain Time Seen by Provider: 12/30/20 13:16 History of Present Illness: HPI Narrative: The patient is a 25-year-old female who she says she has had a history of a kidney stone in the past. She comes in today complaining of left-sided flank pain radiating to her groin for the past day. Denies hematuria. Denies vaginal discharge. Severity: moderate Female Urogenital Radiation: L Flank Consistency: constant Vaginal discharge: none Vaginal bleeding: none Urinary symptoms: Flank Pain Exacerbating factors: none Associated symptoms: Deny abdominal pain or headache(s) Date of Last Menstrual Period: 10/27/20 Review of Systems General: Reports: 10 or more systems reviewed and unremarkable except in HPI and below Const: Denies: fatigue Eyes: Denies: change in vision, blurry vision or eye redness ENMT: Denies: throat pain, swelling of lips/tongue, ear or mastoid pain or nasal congestion Card: Denies: chest pain, palpitations, irregular heart rhythm, edema, dyspnea on exertion or orthopnea Resp: Denies: dyspnea, productive cough or non-productive cough GI: Denies: abdominal pain, diarrhea or GI cramping : Reports: flank pain; Denies: difficulty voiding, urinary frequency or urinary urgency Musc: Denies: neck pain, back pain, extremity pain, joint pain, joint redness, limited range of motion or muscle weakness Skin/Breast: Denies: rash, pruritus, erythema, skin pain or skin tenderness Neuro: Denies: headache(s), numbness in extremities, weakness in extremities, sensory changes, difficulty walking, dizziness, confusion or Slurred speech present Psych: Denies: anxiety or depression Endo: Denies: polyuria All/Imm: Denies: urticaria, throat swelling or tongue swelling PFSH ED PFSH: Medical History No pertinent past medical history Surgical History No pertinent past surgical history Female Reproductive History: Date of last menstrual period: 10/27/20 Physical Exam Const: COMMON NORMALS: no acute distress, average body habitus, patient oriented x3, no limitations, healthy appearing, alert and well nourished GENERAL APPEARANCE: cooperative, comfortable, well kempt and well developed ORIENTATION/CONSCIOUSNESS: Yes awake, Yes oriented to person, Yes oriented to place and Yes oriented to time HENMT: COMMON NORMALS: normocephalic, external ears normal and Normal external nose present HEAD & SCALP: normal to inspection and normocephalic NOSE: Normal external nose present EXTERNAL EAR: Yes external ears normal MOUTH: Normal oral and palatal mucosa present THROAT: posterior oropharynx normal Eye: COMMON NORMALS: Equal, round and reactive pupils present and EOMs intact bilaterally GENERAL EYE: appearance normal, both eyes and all related structures PUPIL: Yes Equal, round and reactive pupils present Neck/C-Spine: COMMON NORMALS: full ROM, no lymphadenopathy, no meningeal signs and no JVD GENERAL: Yes normal visual inspection Lymph: LYMPHATIC: no lymphadenopathy noted Chest: COMMONS NORMALS: normal inspection of the chest and normal palpation of entire chest wall Resp: COMMON NORMALS: normal respiratory effort, No retractions, No use of accessory muscles, clear to auscultation bilaterally and percussion normal EFFORT & INSPECTION: Yes able to speak in complete sentences AUSCULTATION: clear to auscultation bilaterally PERCUSSION: percussion normal Cardio: COMMON NORMALS: no JVD, regular rate, regular rhythm, S1 normal heart sound present, S2 normal heart sound present and Peripheral pulses 2+ throughout RATE: regular rate RHYTHM: regular rhythm HEART SOUNDS: S1 normal heart sound present and S2 normal heart sound present PERIPHERAL PULSES: Peripheral pulses 2+ throughout GI: COMMON NORMALS: Normal to inspection, nondistended, normoactive bowel sounds present, Soft to palpation, non-tender and no masses INSPECTION: Yes normal to inspection PALPATION: Yes Soft to palpation : OTHER: Left flank tenderness. Speculum exam. Discharge in the vaginal canal is copious white. Mild tenderness to the cervix. Possible chandelier sign. Back/Pelvis: COMMON NORMALS: thoracic and lumbar spine normal to inspection, no thoracic nor lumbar tenderness and thoraco-lumbar ROM normal Extremity: COMMON NORMALS: normal to inspection, full ROM, capillary refill normal, no joint enlargement and no pedal edema GENERAL: Yes normal exam except as noted Neuro: COMMON NORMALS: patient oriented x3, CN's II-XII intact bilaterally, moves all extremities, no focal motor deficits, no sensory deficits noted and gait normal SENSORIUM/ORIENTATION: Yes alert, Yes oriented to person, Yes oriented to place and Yes oriented to time MENINGEAL SIGNS: Yes no meningeal signs Psych: COMMON NORMALS: mental status grossly normal, Normal thought process present, cooperative, normal affect and speech normal APPEARANCE: Yes well kempt ATTITUDE: Yes calm SPEECH: Yes normal speech THOUGHT PROCESS: Normal thought process present Skin: COMMON NORMALS: no rashes or lesions noted GENERAL SKIN EXAM: no rashes or lesions noted Course Vital Signs: Vital signs: Vital Signs Temperature 98.3 F 12/30/20 13:09 Pulse Rate 67 12/30/20 19:39 Respiratory Rate 16 12/30/20 19:39 Blood Pressure 101/51 12/30/20 19:39 Pulse Oximetry 99 12/30/20 19:39 MDM - Female MDM Narrative: Medical decision making narrative: Patient came to the ER complaining of left, urinary symptoms, and later vaginal discharge. CT was negative for any acute pathology but did find swelling in the uterus and cul-de-sac fluid. Ultrasound showed similar findings with normal ovaries. Exam was also positive mildly for chandelier sign. She will be treated with doxycycline which will treat UTI and PID. Recommended she follow-up with primary care next week and OB to set up care. ER with worsening symptoms at any time. Discussed safe sex practices with her in detail. GC cultures pending. Wet prep positive for white cells but negative for the other findings. Lab Data: Labs: Lab Results 12/30/20 12/30/20 12/30/20 Range/Units 14:21 14:21 14:21 WBC 14.5 H (4.0-10.0) 10^3/ uL RBC 4.27 (4.1-5.3) 10^6/u L Hgb 13.3 (11.5-15.3) g/dL Hct 41.5 (37.0-47.0) % MCV 97.2 (81-99) fL MCH 31.1 (28.0-34.0) pg MCHC 32.0 (30.0-36.0) g/dL RDW 12.1 (12.1-15.1) % Plt Count 324 (130-400) 10^3/c mm MPV 9.5 (7.4-10.4) fL Neut % (Auto) 71.8 % Lymph % (Auto) 17.7 % Childress % (Auto) 8.3 % Eos % (Auto) 1.6 % Baso % (Auto) 0.3 % Neut # (Auto) 10.38 H (1.8-7.7) 10^3/u L Lymph # (Auto) 2.6 (0.8-4.8) 10^3/u L Childress # (Auto) 1.2 H (0.2-0.9) 10^3/u L Eos # (Auto) 0.2 (0.0-0.8) 10^3/u L Baso # (Auto) 0.1 (0.0-0.1) 10^3/u L Nucleated RBC % (a uto) 0 % Nucleated RBCs # 0.0 /100WBC Sodium 137 (136-145) mmol/L Potassium 3.9 (3.5-5.1) mmol/L Chloride 101 (98-107) mmol/L Carbon Dioxide 29 (22-29) mmol/L Anion Gap 10.9 (5-19) BUN 8 (6-20) mg/dL Creatinine 0.5 (0.5-0.9) mg/dL GFR Calculation 148.0 H (90-130) mL/min Glucose 94 (65-115) mg/dL Calculated Osmolal ity 282 L (285-295) mOsm/k g Lactate 1.2 (0.5-2.2) mmol/L Calcium 8.8 (8.5-10.5) mg/dL Total Bilirubin 0.4 (0.15-1.2) mg/dL AST 19 (0-32) U/L ALT 13 (0-33) U/L Alkaline Phosphata se 93 (35-105) IU/L Total Protein 6.8 (6.6-8.7) g/dL Albumin 4.1 (3.5-5.2) g/dL Globulin 2.7 (1.3-4.6) g/dL Lipase 12 L (13-60) U/L HCG, Qual (Negative) Urine Color (Yellow) Urine Appearance (CLEAR) Urine pH (5-7) Ur Specific Gravit y (1.005-1.030) Urine Protein (Negative) Urine Glucose (UA) (Normal) Urine Ketones (Negative) Urine Blood (Negative) Urine Nitrate (Negative) Urine Bilirubin (Negative) Urine Urobilinogen (Negative) mg/dL Ur Leukocyte Whit ase (Negative) Urine RBC (0-2) /hpf Urine WBC (0-5) /hpf Ur Squamous Epith Cells (0-5) /hpf Amorphous Sediment Urine Bacteria (NONE) /hpf Urine Mucus /hpf 12/30/20 12/30/20 Range/Units 14:21 14:21 WBC (4.0-10.0) 10^3/ uL RBC (4.1-5.3) 10^6/u L Hgb (11.5-15.3) g/dL Hct (37.0-47.0) % MCV (81-99) fL MCH (28.0-34.0) pg MCHC (30.0-36.0) g/dL RDW (12.1-15.1) % Plt Count (130-400) 10^3/c mm MPV (7.4-10.4) fL Neut % (Auto) % Lymph % (Auto) % Childress % (Auto) % Eos % (Auto) % Baso % (Auto) % Neut # (Auto) (1.8-7.7) 10^3/u L Lymph # (Auto) (0.8-4.8) 10^3/u L Childress # (Auto) (0.2-0.9) 10^3/u L Eos # (Auto) (0.0-0.8) 10^3/u L Baso # (Auto) (0.0-0.1) 10^3/u L Nucleated RBC % (a uto) % Nucleated RBCs # /100WBC Sodium (136-145) mmol/L Potassium (3.5-5.1) mmol/L Chloride (98-107) mmol/L Carbon Dioxide (22-29) mmol/L Anion Gap (5-19) BUN (6-20) mg/dL Creatinine (0.5-0.9) mg/dL GFR Calculation (90-130) mL/min Glucose (65-115) mg/dL Calculated Osmolal ity (285-295) mOsm/k g Lactate (0.5-2.2) mmol/L Calcium (8.5-10.5) mg/dL Total Bilirubin (0.15-1.2) mg/dL AST (0-32) U/L ALT (0-33) U/L Alkaline Phosphata se (35-105) IU/L Total Protein (6.6-8.7) g/dL Albumin (3.5-5.2) g/dL Globulin (1.3-4.6) g/dL Lipase (13-60) U/L HCG, Qual Negative (Negative) Urine Color Yellow (Yellow) Urine Appearance Clear (CLEAR) Urine pH 5 (5-7) Ur Specific Gravit y 1.015 (1.005-1.030) Urine Protein Neg (Negative) Urine Glucose (UA) Norm (Normal) Urine Ketones Negative (Negative) Urine Blood Neg (Negative) Urine Nitrate Negative (Negative) Urine Bilirubin Neg (Negative) Urine Urobilinogen Norm (Negative) mg/dL Ur Leukocyte Whit ase 2+ H (Negative) Urine RBC 0-4 H (0-2) /hpf Urine WBC 15-25 H (0-5) /hpf Ur Squamous Epith Cells 0-4 H (0-5) /hpf Amorphous Sediment Not Reportable Urine Bacteria 2+ H (NONE) /hpf Urine Mucus 1+ /hpf Discharge Plan Discharge Patient Disposition: Home Clinical Impression: Urinary tract infection Condition: Stable Prescriptions: New doxycycline hyclate 100 mg capsule 100 mg PO BID 14 Days Qty: 28 RF: 0 No Action Aleve 220 mg Tablet 220 mg PO PRN RF: 0 diclofenac sodium 75 mg tablet,delayed release (DR/EC) 75 mg PO BID PRN (Reason: pain) Qty: 20 RF: 0 Discharge Orders: Discharge ED (Routine); Ordered 12/30/20 Ordered By: Sal Cash Referrals: Charles Villafana MD [Primary Care Provider] - Discharge Diet: Advance as tolerated Discharge Activity: Resume usual activity Patient Instructions: Urinary Tract Infection in Women (ED), Opioid Safety Activity Restrictions/Additional Instructions: You came to the ER complaining of left flank pain and urinary symptoms. Also vaginal discharge. You have mild tenderness to your cervix on exam as well. You will be treated with doxycycline that will cover both urinary infection bugs and possible pelvic inflammatory disease. Please take this twice a day for 2 weeks and return to the ER with worsening symptoms. Otherwise follow-up with your primary care physician next week. It will also be important to follow-up with a casting tester next week to set up care. Coding Level of Care Code ED Technology Solutions Architect for Chg Fwd Exam Comprehensive
--- NOTE | 2020-12-31 10:07 | PC.SOCIAL ---
Referral received from Dr Cash for gynecology appointment. Aniyah at manager front office scheduled appointment with Aniyah MART for 01/06/21 check in 1pm. Called patient unable to reach called sister and later patient returned my call. Advised her of the appointment date and time. She asked if there was an earlier time and she was provided with the clinic number and suggested she call to reschedule if needed. In addition financial assistance applications will be sent out to her. She asked about payment at appointment. Suggest that she let them know she will be applying for financial assistance and see if any payment will be required at time of appointment. She wrote down information and verbalized understanding. She has decided to reach out on her own to schedule the appt recommended by ED provider with PCP.
--- NOTE | 2020-12-31 18:15 | PC.NURSE ---
attempted to call and give test results. unable to leave message
--- NOTE | 2020-12-31 20:21 | PC.NURSE ---
made contact with pt informed her that she was Chlamydia and Ghonnorhea. Told pt she needs to follow up with health care office or PCP for treatment and she needs to inform her partners that they need to be teasted and treated. Pt states she will.
--- NOTE | 2021-01-12 07:34 | DCPLANNER ---
Patient had an appointment scheduled for 01.06.21 at [facility] - appointment was cancelled.
== END 2020-12-30 20:23 | disposition home or self-care (01) ==
PROVIDERS: Emergency Provider Family Medicine; PCP Family Medicine
DX: N39.0 Urinary tract infection, site not specified (principal)
CPT/HCPCS: 74177; 76830; 80053; 81001; 83605; 83690; 84703; 85025; 87086; 87210; 87491; 87591; 96365; 96375; 99284; E0352; J0696; J1885; J7030; Q9967

== ENCOUNTER 2021-03-09 09:32 | Emergency (ER) | payer OTHER, SELFPAY ==
[2021-03-09 09:46] VITALS: BP 113/67; PULSE 97; RESP 18; TEMP 36.8; O2SAT 97; BMI 23.9
--- NOTE | 2021-03-09 09:55 | XRR_ITS ---
PROCEDURE INFORMATION: Exam: XR Chest Exam date and time: 03/09/2021 9:55 AM Age: 26 years old Clinical indication: Cough and shortness of breath; Patient HX: History--sob, coughing x 1 week, PT unable to take nipple rings out TECHNIQUE: Imaging protocol: XR of the chest. Views: 1 view. COMPARISON: CR XR chest 1V portable [id number] 10/28/2020 9:12 AM FINDINGS: Lungs: Hyperinflation and mild interstitial prominence, without acute airspace disease. Pleural spaces: No pleural effusion. Heart/Mediastinum: No cardiomegaly. Bones/joints: Unremarkable. Soft tissues: Bilateral nipple piercings. XR/XR chest 1V portable [id number] IMPRESSION: Hyperinflation, without acute airspace or pleural disease.
--- NOTE | 2021-03-09 09:56 | W.ED.COVID ---
HPI - COVID General: Chief Complaint: COVID symptoms Stated Complaint: COUGH W/VOMIT,DIFF BREATH,SORE THROAT,H/A Time Seen by Provider: 03/09/21 09:38 Triage information: Has fever, cough or shortness of breath. Exposure to COVID + person last 14 days History of Present Illness: HPI Narrative: Muscle aches sore throat nonproductive cough headache chills since Monday MD complaint: reported COVID exposure Prior covid testing: yes, results known (Did a [employer] home test yesterday that was negative) Prior testing date: 03/08/21 COVID 19 common symptoms: positive chills, non-productive cough, fatigue, body aches, headache(s), loss of sense of smell and/or taste, throat pain, nausea and chest tightness COVID 19 other sytmptoms: negative chest pain Onset (ago): day(s) Severity: mild Pertinent comorbid conditions: other (Smoker) Treatment prior to arrival: none COVID Results: SARS-CoV-2 Antigen (Rapid) Negative (Negative) 03/09/21 10:10 03/09/21 Review of Systems Const: Reports: chills, body aches and fatigue Eyes: Denies: change in vision or blurry vision ENMT: Reports: throat pain Card: Denies: chest pain or dyspnea on exertion Resp: Reports: non-productive cough GI: Reports: nausea Musc: Denies: extremity pain Skin/Breast: Denies: rash Neuro: Reports: headache(s) Psych: Denies: anxiety or depression Sam/Lymph: Denies: easy bruising PFSH ED PFSH: Medical History No pertinent past medical history Surgical History No pertinent past surgical history Female Reproductive History: Date of last menstrual period: 10/27/20 Physical Exam Const: COMMON NORMALS: no acute distress, average body habitus and patient oriented x3 HENMT: COMMON NORMALS: normocephalic HEAD & SCALP: normal to inspection and normocephalic FACE & SINUS: normal facial exam THROAT: posterior oropharynx normal Eye: COMMON NORMALS: conjunctivae normal GENERAL EYE: appearance normal, both eyes and all related structures CONJUNCTIVA: Yes conjunctivae normal Neck/C-Spine: COMMON NORMALS: no JVD Chest: COMMONS NORMALS: normal inspection of the chest Resp: COMMON NORMALS: normal respiratory effort Cardio: COMMON NORMALS: no JVD, regular rate and regular rhythm RATE: regular rate RHYTHM: regular rhythm GI: INSPECTION: Yes normal to inspection Extremity: COMMON NORMALS: normal to inspection and full ROM Neuro: COMMON NORMALS: patient oriented x3 Course Vital Signs: Vital signs: Vital Signs Temperature 98.2 F 03/09/21 09:46 Pulse Rate 97 03/09/21 09:46 Respiratory Rate 18 03/09/21 09:46 Blood Pressure 113/67 03/09/21 09:46 Pulse Oximetry 99 03/09/21 10:07 MDM - COVID MDM Narrative: Medical decision making narrative: Patient is negative for Covid. Clinical exam was negative for any pertinent findings. Patient's vital signs were staying normal during visit here patient feeling better by the end of the visit. Patient encouraged take a day off from work drink plenty of fluids rest can take Tylenol ibuprofen. Viral syndrome. Lab Data: Labs: Lab Results 03/09/21 Range/Units 10:10 SARS-CoV-2 Ag (Rap id) Negative (Negative) COVID Results: SARS-CoV-2 Antigen (Rapid) Negative (Negative) 03/09/21 10:10 03/09/21 Discharge Plan Discharge Patient Disposition: Home Clinical Impression: Viral syndrome Condition: Stable Prescriptions: New Decadron 6 mg tablet 6 mg PO DAILY Qty: 7 RF: 0 No Action Aleve 220 mg Tablet 220 mg PO PRN RF: 0 diclofenac sodium 75 mg tablet,delayed release (DR/EC) 75 mg PO BID PRN (Reason: pain) Qty: 20 RF: 0 Discharge Orders: Discharge ED (Routine); Ordered 03/09/21 Ordered By: Alex Reyez Referrals: Charles Villafana MD [Primary Care Provider] - Discharge Diet: Usual diet Discharge Activity: Increase activity as tolerated Patient Instructions: Viral Syndrome (ED) Activity Restrictions/Additional Instructions: Follow-up with medical provider as directed. Take medications as prescribed. Return to the ER or your medical provider if condition worsens. Please read and understand discharge instructions. If any questions ask please. Coding Level of Care Code ED Keg Inspector for Gio Fwd Exam Comprehensive
[2021-03-09 10:07] VITALS: O2SAT 99
[2021-03-09 10:57] LABS: SARS Covid-2 Antigen Negative (Negative)
== END 2021-03-09 11:30 | disposition home or self-care (01) ==
PROVIDERS: Emergency Provider Nurse Practitioner Family; PCP Family Medicine
DX: B34.9 Viral infection, unspecified (principal); Z20.822 Contact with and (suspected) exposure to COVID-19
CPT/HCPCS: 71045; 87426; 99282

== ENCOUNTER 2021-03-17 02:39 | Emergency (ER) | payer OTHER, SELFPAY ==
--- NOTE | 2021-03-17 02:43 | XRR_ITS ---
PROCEDURE INFORMATION: Exam: XR Chest Exam date and time: 03/17/2021 2:43 AM Age: 26 years old Clinical indication: Cough and fever and shortness of breath; Patient HX: Cough, SOB, and fever. Unable to remove nipple rings. TECHNIQUE: Imaging protocol: XR of the chest. Views: 1 view. COMPARISON: CR XR chest 1V portable [id number] 03/09/2021 10:55 AM FINDINGS: Lungs: Unremarkable. No consolidation. Pleural spaces: Unremarkable. No pleural effusion. No pneumothorax. Heart/Mediastinum: Unremarkable. No cardiomegaly. Bones/joints: Unremarkable. Soft tissues: Stable bilateral nipple metallic jewelry with or without metallic artifact. XR/XR chest 1V portable [id number] IMPRESSION: No acute findings.
[2021-03-17 02:45] VITALS: BP 123/79; PULSE 79; RESP 16; TEMP 36.4; O2SAT 98; BMI 25.4
[2021-03-17 03:01] VITALS: O2SAT 98
[2021-03-17] MEDS: sodium chloride 0.9% 1,000 ML 999 ML IV (03:04)
[2021-03-17 03:05] VITALS: RESP 18; O2SAT 98
[2021-03-17] MEDS: morphine 4 mg/mL SDV 1 mL IVP (03:05)
--- NOTE | 2021-03-17 03:05 | W.ED.COVID ---
HPI - COVID General: Chief Complaint: Nausea/Vomiting/Diarrhea Stated Complaint: N\V Cough Time Seen by Provider: 03/17/21 02:46 Source: patient Mode of arrival: ambulatory Limitations: no limitations Triage information: Has fever, cough or shortness of breath. Exposure to COVID + person last 14 days History of Present Illness: HPI Narrative: 26-year-old female states she is not felt well over the last 12 days. States over the last 12 days has had cough congestion nausea vomiting along with body aches. States she is also lost her taste and smell. States she is worried she could have Covid was seen twice last week and had 2 - Covid test. States she was started on steroids and finished them yesterday but still been feeling ill. She said and does distress here and her oxygen is 98%. She denies any worsening proving factors. She denies any chest pain. Patient is afebrile here. COVID 19 common symptoms: positive chills, non-productive cough, body aches, nausea and vomiting; negative headache(s) or throat pain COVID 19 other sytmptoms: negative chest pain COVID Results: SARS-CoV-2 Antigen (Rapid) Negative (Negative) 03/17/21 03:01 03/17/21 Review of Systems Const: Reports: chills and body aches Eyes: Denies: blurry vision or eye discomfort ENMT: Denies: throat pain or dental pain Card: Denies: chest pain Resp: Reports: non-productive cough GI: Reports: nausea and vomiting : Denies: dysuria Musc: Denies: neck pain or back pain Skin/Breast: Denies: rash Neuro: Denies: headache(s) Psych: Denies: depression Sam/Lymph: Denies: easy bruising All/Imm: Denies: urticaria PFSH ED PFSH: Medical History No pertinent past medical history Surgical History No pertinent past surgical history Female Reproductive History: Date of last menstrual period: 03/17/21 Physical Exam Const: COMMON NORMALS: no acute distress, patient oriented x3 and healthy appearing HENMT: COMMON NORMALS: normocephalic and atraumatic HEAD & SCALP: normocephalic and atraumatic Eye: COMMON NORMALS: Equal, round and reactive pupils present and EOMs intact bilaterally PUPIL: Yes Equal, round and reactive pupils present Neck/C-Spine: COMMON NORMALS: full ROM and supple Chest: COMMONS NORMALS: normal inspection of the chest and normal palpation of entire chest wall Resp: COMMON NORMALS: normal respiratory effort, No retractions, No use of accessory muscles and clear to auscultation bilaterally AUSCULTATION: clear to auscultation bilaterally Cardio: COMMON NORMALS: regular rate, regular rhythm and No murmurs present (Cardio) RATE: regular rate RHYTHM: regular rhythm GI: COMMON NORMALS: Normal to inspection, nondistended, normoactive bowel sounds present, Soft to palpation, non-tender and no masses PALPATION: Yes Soft to palpation Extremity: COMMON NORMALS: normal to inspection and full ROM Neuro: COMMON NORMALS: patient oriented x3, moves all extremities and no focal motor deficits Psych: COMMON NORMALS: mental status grossly normal, Normal thought process present and cooperative THOUGHT PROCESS: Normal thought process present Skin: COMMON NORMALS: no rashes or lesions noted and no wounds GENERAL SKIN EXAM: no rashes or lesions noted Course Vital Signs: Vital signs: Vital Signs Temperature 97.6 F 03/17/21 02:45 Pulse Rate 74 03/17/21 04:59 Respiratory Rate 14 03/17/21 04:59 Blood Pressure 106/60 03/17/21 04:59 Pulse Oximetry 96 03/17/21 04:59 MDM - COVID MDM Narrative: Medical decision making narrative: Patient presents here with a likely viral syndrome. Covid here is negative and all her blood work here is normal as well. Chest x-ray shows no acute abnormalities. Her initial and repeat abdominal exam are benign. She has had an appendectomy is no tenderness on her exam. Urinalysis shows no signs of kidney infection. She has no signs of meningitis and no meningismus. She is stable for discharge she is to follow-up with her PCP in 2 to 4 days return to ER if worsening. Lab Data: Labs: Lab Results 03/17/21 03/17/21 03/17/21 Range/Units 03:01 03:01 03:01 WBC 12.7 H (4.0-10.0) 10^3/ uL RBC 4.36 (4.1-5.3) 10^6/u L Hgb 13.4 (11.5-15.3) g/dL Hct 40.7 (37.0-47.0) % MCV 93.3 (81-99) fl MCH 30.7 (28.0-34.0) pg MCHC 32.9 (30.0-36.0) g/dL RDW 12.3 (12.1-15.1) % Plt Count 327 (130-400) 10^3/c mm MPV 9.3 (7.4-10.4) fL Neut % (Auto) 40.6 % Lymph % (Auto) 44.4 % [place] % (Auto) 11.6 % Eos % (Auto) 2.4 % Baso % (Auto) 0.6 % Neut # (Auto) 5.18 (1.8-7.7) 10^3/u L Lymph # (Auto) 5.6 H (0.8-4.8) 10^3/u L [place] # (Auto) 1.5 H (0.2-0.9) 10^3/u L Eos # (Auto) 0.3 (0.0-0.8) 10^3/u L Baso # (Auto) 0.1 (0.0-0.1) 10^3/u L Nucleated RBC % (a uto) 0 % Nucleated RBCs # 0.0 /100WBC D-Dimer (0-0.59) ug/mIFE U Sodium 143 (136-145) mmol/L Potassium 3.9 (3.5-5.1) mmol/L Chloride 105 (98-107) mmol/L Carbon Dioxide 26 (22-29) mmol/L Anion Gap 15.9 (5-19) BUN 10 (6-20) mg/dL Creatinine 0.6 (0.5-0.9) mg/dL GFR Calculation 119.0 (90-130) mL/min Glucose 110 (65-115) mg/dL Calculated Osmolal ity 296 H (285-295) mOsm/k g Calcium 9.0 (8.5-10.5) mg/dL Total Bilirubin 0.3 (0.15-1.2) mg/dL AST 14 (0-32) U/L ALT 15 (0-33) U/L Alkaline Phosphata se 76 (35-105) IU/L Total Protein 6.5 L (6.6-8.7) g/dL Albumin 4.2 (3.5-5.2) g/dL Globulin 2.3 (1.3-4.6) g/dL Lipase 25 (13-60) U/L HCG, Qual Negative (Negative) Urine Color (Yellow) Urine Appearance (CLEAR) Urine pH (5-7) Ur Specific Gravit y (1.005-1.030) Urine Protein (Negative) Urine Glucose (UA) (Normal) Urine Ketones (Negative) Urine Blood (Negative) Urine Nitrate (Negative) Urine Bilirubin (Negative) Urine Urobilinogen (Negative) mg/dL Ur Leukocyte Whit ase (Negative) Urine RBC (0-2) /hpf Urine WBC (0-5) /hpf Ur Squamous Epith Cells (0-5) /hpf Amorphous Sediment Urine Bacteria (NONE) /hpf Urine Mucus /hpf SARS-CoV-2 Ag (Rap id) (Negative) 03/17/21 03/17/21 03/17/21 Range/Units 03:01 03:01 03:55 WBC (4.0-10.0) 10^3/ uL RBC (4.1-5.3) 10^6/u L Hgb (11.5-15.3) g/dL Hct (37.0-47.0) % MCV (81-99) fl MCH (28.0-34.0) pg MCHC (30.0-36.0) g/dL RDW (12.1-15.1) % Plt Count (130-400) 10^3/c mm MPV (7.4-10.4) fL Neut % (Auto) % Lymph % (Auto) % [place] % (Auto) % Eos % (Auto) % Baso % (Auto) % Neut # (Auto) (1.8-7.7) 10^3/u L Lymph # (Auto) (0.8-4.8) 10^3/u L [place] # (Auto) (0.2-0.9) 10^3/u L Eos # (Auto) (0.0-0.8) 10^3/u L Baso # (Auto) (0.0-0.1) 10^3/u L Nucleated RBC % (a uto) % Nucleated RBCs # /100WBC D-Dimer <= 0.27 (0-0.59) ug/mIFE U Sodium (136-145) mmol/L Potassium (3.5-5.1) mmol/L Chloride (98-107) mmol/L Carbon Dioxide (22-29) mmol/L Anion Gap (5-19) BUN (6-20) mg/dL Creatinine (0.5-0.9) mg/dL GFR Calculation (90-130) mL/min Glucose (65-115) mg/dL Calculated Osmolal ity (285-295) mOsm/k g Calcium (8.5-10.5) mg/dL Total Bilirubin (0.15-1.2) mg/dL AST (0-32) U/L ALT (0-33) U/L Alkaline Phosphata se (35-105) IU/L Total Protein (6.6-8.7) g/dL Albumin (3.5-5.2) g/dL Globulin (1.3-4.6) g/dL Lipase (13-60) U/L HCG, Qual (Negative) Urine Color Yellow (Yellow) Urine Appearance Clear (CLEAR) Urine pH 5 (5-7) Ur Specific Gravit y 1.020 (1.005-1.030) Urine Protein Neg (Negative) Urine Glucose (UA) Norm (Normal) Urine Ketones Negative (Negative) Urine Blood 2+ H (Negative) Urine Nitrate Negative (Negative) Urine Bilirubin Neg (Negative) Urine Urobilinogen 1 H (Negative) mg/dL Ur Leukocyte Whit ase Negative (Negative) Urine RBC 0-4 H (0-2) /hpf Urine WBC 0-4 H (0-5) /hpf Ur Squamous Epith Cells 0-4 H (0-5) /hpf Amorphous Sediment Not Reportable Urine Bacteria Trace (NONE) /hpf Urine Mucus 2+ /hpf SARS-CoV-2 Ag (Rap id) Negative (Negative) Imaging Data: CXR: Attestation: I personally reviewed and interpreted this imaging study as follows: My impression: no acute abnormality COVID Results: SARS-CoV-2 Antigen (Rapid) Negative (Negative) 03/17/21 03:01 03/17/21 Discharge Plan Discharge Patient Disposition: Home Clinical Impression: Acute viral syndrome Vomiting Qualifiers: Vomiting type: unspecified Vomiting Intractability: non-intractable Nausea presence: with nausea Qualified Code(s): R11.2 - Nausea with vomiting, unspecified Condition: Stable Prescriptions: New Reglan 10 mg tablet 10 mg PO Q6H PRN (Reason: nausea and vomiting) Qty: 20 RF: 0 No Action Aleve 220 mg Tablet 220 mg PO PRN RF: 0 Decadron 6 mg tablet 6 mg PO DAILY Qty: 7 RF: 0 diclofenac sodium 75 mg tablet,delayed release (DR/EC) 75 mg PO BID PRN (Reason: pain) Qty: 20 RF: 0 Discharge Orders: Discharge ED (Routine); Ordered 03/17/21 Ordered By: Mark Dhillon Referrals: Charles Villafana MD [Primary Care Provider] - 1-3 days Discharge Diet: Advance as tolerated Discharge Activity: Resume usual activity Patient Instructions: Acute Nausea and Vomiting (ED), Viral Syndrome (ED) Coding Level of Care Code ED Community Relations Officer for [employer] Fwd Exam Comprehensive
[2021-03-17 03:10] LABS: Basophils # 0.1 10^3/uL (0.0-0.1); Basophils % 0.6 %; Eosinophils # 0.3 10^3/uL (0.0-0.8); Eosinophils % 2.4 %; Hematocrit 40.7 % (37.0-47.0); Hemoglobin 13.4 g/dL (11.5-15.3); Lymphocytes # 5.6 10^3/uL (0.8-4.8); Lymphocytes % 44.4 %; Mean Corpuscular HGB Conc 32.9 g/dL (30.0-36.0); Mean Corpuscular Hemoglobin 30.7 pg (28.0-34.0); Mean Corpuscular Volume 93.3 fl (81-99); Mean Platelet Volume 9.3 fL (7.4-10.4); Monocytes # 1.5 10^3/uL (0.2-0.9); Monocytes % 11.6 %; Neutrophils # 5.18 10^3/uL (1.8-7.7); Neutrophils % 40.6 %; Nucleated Red Blood Cells % 0 %; Platelet Count 327 10^3/cmm (130-400); Red Blood Count 4.36 10^6/uL (4.1-5.3); Red Cell Distribution Width 12.3 % (12.1-15.1); White Blood Count 12.7 10^3/uL (4.0-10.0)
[2021-03-17 03:19] LABS: HCG, Serum Qual Negative (Negative)
[2021-03-17 03:20] LABS: D Dimer <= 0.27 ug/mIFEU (0-0.59)
[2021-03-17 03:24] LABS: Alanine Aminotransferase 15 U/L (0-33); Albumin Level 4.2 g/dL (3.5-5.2); Alkaline Phosphatase 76 IU/L (35-105); Anion Gap 15.9 (5-19); Aspartate Amino Transferase 14 U/L (0-32); Blood Urea Nitrogen 10 mg/dL (6-20); Carbon Dioxide 26 mmol/L (22-29); Chloride 105 mmol/L (98-107); Globulin 2.3 g/dL (1.3-4.6); Glucose 110 mg/dL (65-115); Lipase 25 U/L (13-60); Osmolality Calculated 296 mOsm/kg (285-295); Potassium 3.9 mmol/L (3.5-5.1); Sodium 143 mmol/L (136-145); Total Bilirubin 0.3 mg/dL (0.15-1.2); Total Protein 6.5 g/dL (6.6-8.7)
[2021-03-17 03:26] LABS: Slide Review Slide Review Perform
[2021-03-17 03:42] LABS: SARS Covid-2 Antigen Negative (Negative)
[2021-03-17 04:37] LABS: Add Urine Microscopic? YES; Bilirubin Urine Neg (Negative); Blood Urine 2+ (Negative); Glucose Urine UA Norm (Normal); Ketones Urine Negative (Negative); Leukocyte Esterase Urine Negative (Negative); Nitrate Urine Negative (Negative); Protein Urine Neg (Negative); Urine Appearance Clear (CLEAR); Urine Color Yellow (Yellow); Urobilinogen Urine 1 mg/dL (Negative); pH Urine 5 (5-7)
[2021-03-17 04:38] LABS: Add Urine Culture? No; Bacteria Urine TRACE /hpf; Mucus Urine 2+ /hpf; RBC Urine 0-4 /hpf (0-2); Squamous Epithelial Cell Urine 0-4 /hpf (0-5); WBC Urine 0-4 /hpf (0-5)
[2021-03-17 04:59] VITALS: BP 106/60; PULSE 74; RESP 14; O2SAT 96
== END 2021-03-17 05:00 | disposition home or self-care (01) ==
PROVIDERS: Emergency Provider Emergency Medicine; PCP Family Medicine
DX: B34.9 Viral infection, unspecified (principal); Z20.822 Contact with and (suspected) exposure to COVID-19
CPT/HCPCS: 71045; 80053; 81001; 83690; 84703; 85025; 85378; 87426; 96361; 96374; 99284; J2270; J7030

== ENCOUNTER 2021-03-20 15:43 | Emergency (ER) | payer OTHER, SELFPAY ==
[2021-03-20 16:04] VITALS: BP 107/65; PULSE 84; RESP 18; TEMP 36.8; O2SAT 97; BMI 25.1
--- NOTE | 2021-03-20 16:18 | XRR_ITS ---
PROCEDURE INFORMATION: Exam: XR Left Shoulder Exam date and time: 03/20/2021 4:18 PM Age: 26 years old Clinical indication: Injury or trauma; Fall; Blunt trauma (contusions or hematomas); Shoulder; Left; Additional info: Pain left shoulder TECHNIQUE: Imaging protocol: XR Left shoulder. Views: 2 or more views. COMPARISON: CR (CHEST, ) 03/17/2021 3:11 AM FINDINGS: Bones/joints: The glenohumeral joint is intact. The acromioclavicular joint is intact. No fracture or other acute osseous abnormality. Soft tissues: The soft tissues appear unremarkable. XR/XR shoulder LT min 2V* [id number] IMPRESSION: Unremarkable left shoulder radiographic series.
--- NOTE | 2021-03-20 16:18 | W.ED.EXTPRO ---
Documented by User: BARRON Nicolas 03/21/21 06:55 HPI - Extremity Problem General: Chief complaint: Extremity Injury, Upper Stated complaint: L SHOULDER INJURY:Pain getting out of shower Time Seen by Provider: 03/20/21 16:14 History of Present Illness: HPI Narrative: Patient states that she was got a shower and she felt pain in her left shoulder she felt a pop. She denies falling or any injury. This occurred earlier this morning. MD Complaint: joint pain Onset (ago): hour(s) Pain Consistency: constant Location: left Severity scale (1-10): 3 Quality: aching Radiation: none Relieving factors: immobilization Exacerbating factors: range of motion Associated symptoms: Reports no associated symptoms; Deny chest pain, fever(s) or rash Review of Systems Const: Denies: fever(s), chills or body aches Eyes: Denies: change in vision or blurry vision ENMT: Denies: throat pain or nasal congestion Card: Denies: chest pain or dyspnea on exertion Resp: Denies: dyspnea, productive cough or non-productive cough GI: Denies: abdominal pain, nausea or vomiting Musc: Reports: joint pain (Left shoulder has hurt since she got out of shower this morning.); Denies: extremity pain Skin/Breast: Denies: rash Neuro: Denies: headache(s) Psych: Denies: anxiety or depression Sam/Lymph: Denies: easy bruising [facility] ED PFSH: Medical History No pertinent past medical history Surgical History No pertinent past surgical history Female Reproductive History: Date of last menstrual period: 03/17/21 Physical Exam Const: COMMON NORMALS: no acute distress and patient oriented x3 GENERAL APPEARANCE: cooperative Extremity: LEFT UPPER EXTREMITY: Yes shoulder joint (Pain with range of motion left shoulder. I am able to move the shoulder th) Left shoulder joint: Yes ROM (Pain with range of motion I am able to move the arm) and Yes other (Distal neurovascular is intact) Neuro: COMMON NORMALS: patient oriented x3 Course Vital Signs: Vital signs: Vital Signs Temperature 98.3 F 03/20/21 16:04 Pulse Rate 84 03/20/21 16:04 Respiratory Rate 18 03/20/21 16:04 Blood Pressure 107/65 03/20/21 16:04 Pulse Oximetry 97 03/20/21 16:04 Discharge Plan Discharge Patient Disposition: Home Clinical Impression: Shoulder pain, left Qualifiers: Chronicity: acute Qualified Code(s): M25.512 - Pain in left shoulder Condition: Stable Prescriptions: New Celebrex 100 mg capsule 100 mg PO BID Qty: 20 RF: 0 Held diclofenac sodium 75 mg tablet,delayed release (DR/EC) 75 mg PO BID PRN (Reason: pain) Qty: 20 RF: 0 Hold Instructions: Resume on 03/23/21. No Action Aleve 220 mg Tablet 220 mg PO PRN RF: 0 Decadron 6 mg tablet 6 mg PO DAILY Qty: 7 RF: 0 Reglan 10 mg tablet 10 mg PO Q6H PRN (Reason: nausea and vomiting) Qty: 20 RF: 0 Discharge Orders: Discharge ED (Routine); Ordered 03/20/21 Ordered By: Allyn Castorena Referrals: Charles Villafana MD [Primary Care Provider] - 4-7 days Discharge Diet: Usual diet Discharge Activity: Increase activity as tolerated Patient Instructions: How to Use a Sling (GEN), RICE Therapy (ED), Heat Pack Application (ED) Activity Restrictions/Additional Instructions: Follow-up with medical provider as directed. Take medications as prescribed. Return to the ER or your medical provider if condition worsens. Please read and understand discharge instructions. If any questions ask please. Apply ice to area as needed. Stand Alone Forms: Work/School Release Sign Out Sign Out Data: Patient Sign Out occurred on 03/20/21 at 17:05. Patient's care was discussed, and care was transferred from to Allyn Castorena APRN. Coding Level of Care Code ED Configuration Management Specialist for Chg Fwd Exam Expanded Problem Focused Documented by User: Allyn Castorena APRN 03/20/21 21:08 HPI - Extremity Problem General: Chief complaint: Extremity Injury, Upper Stated complaint: L SHOULDER INJURY:Pain getting out of shower Time Seen by Provider: 03/20/21 16:14 Source: patient Mode of arrival: ambulatory Limitations: no limitations History of Present Illness: HPI Narrative: Patient was getting out of shower and noticed pain immediately in the left shoulder. No acute injury noted, no fall or trauma. MD Complaint: joint pain Pain Consistency: constant Location: left Severity scale (1-10): 4 Quality: dull Radiation: none Relieving factors: nothing Context: other (Works and [employer] and has repetitive use, lifting) PFSH ED PFSH: Medical History No pertinent past medical history Surgical History No pertinent past surgical history Course ED course: No acute injury along with no abnormalities on exam, or x-ray. Patient is very concerned about ability to return to work due to repetitive use and lifting. Vital Signs: Vital signs: Vital Signs Temperature 98.3 F 03/20/21 16:04 Pulse Rate 84 03/20/21 16:04 Respiratory Rate 18 03/20/21 16:04 Blood Pressure 107/65 03/20/21 16:04 Pulse Oximetry 97 03/20/21 16:04 MDM - Extremity (Nontraumatic) Imaging Data^: Xray Ortho: Attestation: I personally reviewed and interpreted this imaging study as follows: My impression: No acute abnormalities discussed with Dr. Proctor. Discharge Plan Discharge Patient Disposition: Home Clinical Impression: Shoulder pain, left Qualifiers: Chronicity: acute Qualified Code(s): M25.512 - Pain in left shoulder Condition: Stable Prescriptions: New Celebrex 100 mg capsule 100 mg PO BID Qty: 20 RF: 0 Held diclofenac sodium 75 mg tablet,delayed release (DR/EC) 75 mg PO BID PRN (Reason: pain) Qty: 20 RF: 0 Hold Instructions: Resume on 03/23/21. No Action Aleve 220 mg Tablet 220 mg PO PRN RF: 0 Decadron 6 mg tablet 6 mg PO DAILY Qty: 7 RF: 0 Reglan 10 mg tablet 10 mg PO Q6H PRN (Reason: nausea and vomiting) Qty: 20 RF: 0 Discharge Orders: Discharge ED (Routine); Ordered 03/20/21 Ordered By: Allyn Castorena Referrals: Charles Villafana MD [Primary Care Provider] - 4-7 days Discharge Diet: Usual diet Discharge Activity: Increase activity as tolerated Patient Instructions: How to Use a Sling (GEN), RICE Therapy (ED), Heat Pack Application (ED) Activity Restrictions/Additional Instructions: Follow-up with medical provider as directed. Take medications as prescribed. Return to the ER or your medical provider if condition worsens. Please read and understand discharge instructions. If any questions ask please. Apply ice to area as needed. Stand Alone Forms: Work/School Release Sign Out Sign Out Data: Patient Sign Out occurred on 03/20/21 at 17:05. Patient's care was discussed, and care was transferred from to Allyn Castorena APRN. Coding Level of Care Code ED Configuration Management Specialist for Chg Fwd Exam Expanded Problem Focused
--- NOTE | 2021-03-20 16:57 | XRR_ITS ---
PROCEDURE INFORMATION: Exam: XR Left Shoulder Exam date and time: 03/20/2021 4:57 PM Age: 26 years old Clinical indication: Injury or trauma; Fall; Blunt trauma (contusions or hematomas); Shoulder; Left; Additional info: Pain, axillary view TECHNIQUE: Imaging protocol: XR Left shoulder. Views: 1 view. COMPARISON: CR (CHEST, ) 03/20/2021 4:41 PM FINDINGS: Bones/joints: The glenohumeral joint is intact. The acromioclavicular joint is intact. No fracture or other acute osseous abnormality. Soft tissues: The soft tissues appear unremarkable. XR/XR shoulder LT 1V [id number] IMPRESSION: Unremarkable left shoulder radiographic series.
== END 2021-03-20 17:58 | disposition home or self-care (01) ==
PROVIDERS: Emergency Provider Nurse Practitioner Family; PCP Family Medicine
DX: M25.512 Pain in left shoulder (principal)
CPT/HCPCS: 73020; 73030; 99282

== ENCOUNTER 2021-08-30 00:52 | Emergency (ER) | payer OTHER, SELFPAY ==
[2021-08-30 00:55] VITALS: BP 114/78; PULSE 92; RESP 18; TEMP 36.7; O2SAT 97; BMI 25.7
--- NOTE | 2021-08-30 01:04 | W.ED.ABDPA2 ---
HPI - Abdominal Pain General: Chief Complaint: Abdominal Pain Stated Complaint: Lower ABD Pain Rt Side Nausea Time Seen by Provider: 08/30/21 01:04 History of Present Illness: 26-year-old female comes in today with complaints of left lower quadrant abdominal pain. On exam patient appears nontoxic. Patient appears in mild to moderate pain. Patient has a history of appendectomy and tubal ligation. Patient reports pain started about an hour prior to arrival to the ER. Patient reports nothing improves or worsens pain. Patient states that she was started on antibiotic yesterday for an ear infection. Patient had a respiratory infection for about 1 week. Patient tested negative for influenza and Covid yesterday. Related Data: Date of Last Menstrual Period: 08/03/21 Review of Systems General: Reports: 10 or more systems reviewed and unremarkable except in HPI and below GI: Reports: abdominal pain PFSH ED PFSH: Medical History No pertinent past medical history Surgical History No pertinent past surgical history Female Reproductive History: Date of last menstrual period: 08/03/21 Physical Exam Const: COMMON NORMALS: alert HENMT: COMMON NORMALS: atraumatic HEAD & SCALP: atraumatic THROAT: posterior oropharynx normal Neck/C-Spine: COMMON NORMALS: full ROM Lymph: LYMPHATIC: no lymphadenopathy noted Resp: COMMON NORMALS: normal respiratory effort and clear to auscultation bilaterally AUSCULTATION: clear to auscultation bilaterally Cardio: COMMON NORMALS: regular rate and regular rhythm RATE: regular rate RHYTHM: regular rhythm GI: AUSCULTATION: Yes normoactive bowel sounds PALPATION: Yes Tenderness to palpation present (GI) Details: LLQ : COMMON NORMALS: Yes no CVA tenderness BLADDER/KIDNEY EXAM: Yes no CVA tenderness Back/Pelvis: COMMON NORMALS: no CVA tenderness Extremity: COMMON NORMALS: full ROM and no pedal edema Neuro: SENSORIUM/ORIENTATION: Yes alert Psych: COMMON NORMALS: cooperative Skin: COMMON NORMALS: no rashes or lesions noted GENERAL SKIN EXAM: no rashes or lesions noted Course Vital Signs: Vital signs: Vital Signs Temperature 98.1 F 08/30/21 00:55 Pulse Rate 78 08/30/21 01:11 Respiratory Rate 15 08/30/21 01:11 Blood Pressure 115/63 08/30/21 01:11 Pulse Oximetry 98 08/30/21 01:11 MDM - Abdominal Pain Medical Decision Making 26-year-old female comes in today with complaints of left lower quadrant abdominal pain. On exam abdomen soft with some tenderness in the left lower quadrant. Bowel sounds are present. Skin is warm and dry. Differential diagnosis includes but not limited to diverticulitis, ovarian cyst, tubal , constipation, UTI. Laboratory values were normal. hCG was negative. Urinalysis was negative. CT of the abdomen and pelvis indicated a benign hemorrhagic cyst to the left ovary. Reviewed exam with patient with recommendations for treatment and follow-up. Patient was given 15 mg of Toradol with some improvement in pain and 4 mg of Zofran for nausea. Patient will be continued on diclofenac for pain. Recommend follow-up with primary care for further instructions. Patient reported understanding. Lab Data : 08/30/21 01:23 08/30/21 01:23 Labs/Radiology: Radiology Impressions Abdomen/Pelvis CT 08/30/21 01:15 IMPRESSION: 1. Probable benign hemorrhagic cyst of the left ovary measuring up to 2 cm. No further workup needed. 2. Tiny hypoattenuation cystic lesions seen within the liver, the largest seen in the left hepatic lobe measuring 3.9 mm compatible with simple cysts. No further workup needed. Laboratory Results WBC 9.2 10^3/uL (4.0-10.0) 08/30/21 01:23 RBC 4.41 10^6/uL (4.1-5.3) 08/30/21 01:23 Hgb 13.9 g/dL (11.5-15.3) 08/30/21 01:23 Hct 41.2 % (37.0-47.0) 08/30/21 01:23 MCV 93.4 fl (81-99) 08/30/21 01:23 MCH 31.5 pg (28.0-34.0) 08/30/21 01: MCHC 33.7 g/dL (30.0-36.0) 08/30/21 01:23 RDW 12.4 % (12.1-15.1) 08/30/21 01:23 Plt Count 278 10^3/cmm (130-400) 08/30/21 01:23 MPV 9.9 fL (7.4-10.4) 08/30/21 01: Neut % (Auto) 52.6 % 08/30/21 01: Lymph % (Auto) 35.3 % 08/30/21 01: [place] % (Auto) 8.6 % 08/30/21 01: Eos % (Auto) 2.8 % 08/30/21 01: Baso % (Auto) 0.5 % 08/30/21 01: Neut # (Auto) 4.82 10^3/uL (1.8-7.7) 08/30/21 01: Lymph # (Auto) 3.2 10^3/uL (0.8-4.8) 08/30/21 01: [place] # (Auto) 0.8 10^3/uL (0.2-0.9) 08/30/21 01: Eos # (Auto) 0.3 10^3/uL (0.0-0.8) 08/30/21 01: Baso # (Auto) 0.1 10^3/uL (0.0-0.1) 08/30/21 01: Nucleated RBC % (auto) 0 % 08/30/21 01: Nucleated RBCs # 0.0 /100WBC 08/30/21 01: Sodium 136 mmol/L (136-145) 08/30/21 01: Potassium 4.1 mmol/L (3.5-5.1) 08/30/21 01: Chloride 101 mmol/L (98-107) 08/30/21 01: Carbon Dioxide 23 mmol/L (22-29) 08/30/21 01: Anion Gap 16.1 (5-19) 08/30/21 01: BUN 14 mg/dL (6-20) 08/30/21 01: Creatinine 0.5 mg/dL (0.5-0.9) 08/30/21 01: GFR Calculation 146.9 mL/min (90-130) H 08/30/21 01:23 Glucose 101 mg/dL (65-115) 08/30/21 01:23 Calculated Osmolality 283 mOsm/kg (285-295) L 08/30/21 01: Calcium 9.5 mg/dL (8.5-10.5) 08/30/21 01:23 Total Bilirubin 0.2 mg/dL (0.15-1.2) 08/30/21 01:23 AST 19 U/L (0-32) 08/30/21 01:23 ALT 20 U/L (0-33) 08/30/21 01:23 Alkaline Phosphatase 86 IU/L (35-105) 08/30/21 01:23 Total Protein 7.0 g/dL (6.6-8.7) 08/30/21 01:23 Albumin 4.6 g/dL (3.5-5.2) 08/30/21 01:23 Globulin 2.4 g/dL (1.3-4.6) 08/30/21 01:23 Lipase 24 U/L (13-60) 08/30/21 01:23 HCG, Qual Negative (Negative) 08/30/21 01:23 Urine Color Yellow (Yellow) 08/30/21 01:37 Urine Appearance Clear (CLEAR) 08/30/21 01:37 Urine pH 8 (5-7) H 08/30/21 01:37 Ur Specific [place] 1.010 (1.005-1.030) 08/30/21 01:37 Urine Protein Neg (Negative) 08/30/21 01:37 Urine Glucose (UA) Norm (Normal) 08/30/21 01:37 Urine Ketones Negative (Negative) 08/30/21 01:37 Urine Blood Neg (Negative) 08/30/21 01:37 Urine Nitrate Negative (Negative) 08/30/21 01:37 Urine Bilirubin Neg (Negative) 08/30/21 01:37 Prot Sulfosalicylic Acd Negative (Negative) 08/30/21 01:37 Urine Urobilinogen Norm mg/dL (Negative) 08/30/21 01:37 Ur Leukocyte Esterase Negative (Negative) 08/30/21 01:37 Discharge Plan Discharge Patient Disposition: Home Clinical Impression: Abdominal pain Qualifiers: Abdominal location: left lower quadrant Qualified Code(s): R10.32 - Left lower quadrant pain Ovarian cyst Qualifiers: Laterality: left Qualified Code(s): N83.202 - Unspecified ovarian cyst, left side Condition: Stable Prescriptions: New diclofenac potassium 50 mg tablet 50 mg PO TID PRN (Reason: pain) Qty: 15 0RF Discontinued dexamethasone [Decadron] 6 mg tablet 6 mg PO DAILY Qty: 7 0RF diclofenac sodium 75 mg tablet,delayed release (DR/EC) 75 mg PO BID PRN (Reason: pain) Qty: 20 0RF Hold Instructions: Resume on 03/23/21. celecoxib [Celebrex] 100 mg capsule 100 mg PO BID Qty: 20 0RF No Action Aleve 220 mg Tablet 220 mg PO PRN 0RF Reglan 10 mg tablet 10 mg PO Q6H PRN (Reason: nausea and vomiting) Qty: 20 0RF Discharge Orders: Discharge ED (Routine); Ordered 08/30/21 Ordered By: Bola Lubin Discharge Diet: Usual diet Discharge Activity: Increase activity as tolerated Patient Instructions: Ovarian Cyst (ED) Activity Restrictions/Additional Instructions: Home and rest. Drink plenty of fluids. Follow-up with primary care in 3 days for recheck. Return to ER for new worsening symptoms, fever greater than 100.4, or new concerns. 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
[2021-08-30 01:11] VITALS: BP 115/63; PULSE 78; RESP 15; O2SAT 98
--- NOTE | 2021-08-30 01:15 | CTR_ITS ---
PROCEDURE INFORMATION: Exam: CT Abdomen And Pelvis With Contrast Exam date and time: 08/30/2021 1:15 AM Age: 26 years old Clinical indication: Nausea; Abdominal pain; Localized; Left lower quadrant (llq); Prior surgery; Surgery date: 6+ months; Surgery type: Appy; Additional info: Llq pain TECHNIQUE: Imaging protocol: Computed tomography of the abdomen and pelvis with contrast. Radiation optimization: All CT scans at this facility use at least one of these dose optimization techniques: automated exposure control; mA and/or kV adjustment per patient size (includes targeted exams where dose is matched to clinical indication); or iterative reconstruction. Contrast material: OMNI 300; Contrast volume: 95 ml; Contrast route: INTRAVENOUS (IV); COMPARISON: CT abdomen pelvis w con* [id number] 12/30/2020 3:52 PM RADIATION DOSE METRICS: Total DLP (mGy-cm): 1038.75 FINDINGS: Liver: There are tiny hypoattenuation cystic lesions seen within the liver, the largest is seen in the left hepatic lobe adjacent to the falciform fissure measuring 3.9 mm. Gallbladder and bile ducts: Normal. No calcified stones. No ductal dilation. Pancreas: Normal. No ductal dilation. Spleen: Normal. No splenomegaly. Adrenal glands: Normal. No mass. Kidneys and ureters: Normal. No hydronephrosis. Stomach and bowel: Unremarkable. No obstruction. No mucosal thickening. Appendix: No evidence of appendicitis. Intraperitoneal space: Unremarkable. No free air. No significant fluid collection. Vasculature: Unremarkable. No abdominal aortic aneurysm. Lymph nodes: Unremarkable. No enlarged lymph nodes. Urinary bladder: Unremarkable as visualized. Reproductive: There is a 2.0 x 1.7 x 1.9 cm hypoattenuation cystic mass seen within the left ovary exhibiting peripheral enhancement compatible with a hemorrhagic cyst. Bones/joints: Unremarkable. No acute fracture. Soft tissues: Unremarkable. CT/CT abdomen pelvis w con* [id number] IMPRESSION: 1. Probable benign hemorrhagic cyst of the left ovary measuring up to 2 cm. No further workup needed. 2. Tiny hypoattenuation cystic lesions seen within the liver, the largest seen in the left hepatic lobe measuring 3.9 mm compatible with simple cysts. No further workup needed.
[2021-08-30 01:28] LABS: Basophils # 0.1 10^3/uL (0.0-0.1); Basophils % 0.5 %; Eosinophils # 0.3 10^3/uL (0.0-0.8); Eosinophils % 2.8 %; Hematocrit 41.2 % (37.0-47.0); Hemoglobin 13.9 g/dL (11.5-15.3); Lymphocytes # 3.2 10^3/uL (0.8-4.8); Lymphocytes % 35.3 %; Mean Corpuscular HGB Conc 33.7 g/dL (30.0-36.0); Mean Corpuscular Hemoglobin 31.5 pg (28.0-34.0); Mean Corpuscular Volume 93.4 fl (81-99); Mean Platelet Volume 9.9 fL (7.4-10.4); Monocytes # 0.8 10^3/uL (0.2-0.9); Monocytes % 8.6 %; Neutrophils # 4.82 10^3/uL (1.8-7.7); Neutrophils % 52.6 %; Nucleated Red Blood Cells % 0 %; Platelet Count 278 10^3/cmm (130-400); Red Blood Count 4.41 10^6/uL (4.1-5.3); Red Cell Distribution Width 12.4 % (12.1-15.1); White Blood Count 9.2 10^3/uL (4.0-10.0)
[2021-08-30 01:37] LABS: HCG, Serum Qual Negative (Negative)
[2021-08-30] MEDS: ondansetron 2 mg/ML SDV 2 mL 4 MG IVP (01:41)
[2021-08-30] MEDS: sodium chloride 0.9% 500 ML 999 ML IV (01:41)
[2021-08-30] MEDS: ketorolac 30 mg/mL INJ 15 MG IVP (01:41)
[2021-08-30 01:47] LABS: Alanine Aminotransferase 20 U/L (0-33); Albumin Level 4.6 g/dL (3.5-5.2); Alkaline Phosphatase 86 IU/L (35-105); Anion Gap 16.1 (5-19); Aspartate Amino Transferase 19 U/L (0-32); Blood Urea Nitrogen 14 mg/dL (6-20); Calcium 9.5 mg/dL (8.5-10.5); Carbon Dioxide 23 mmol/L (22-29); Chloride 101 mmol/L (98-107); Globulin 2.4 g/dL (1.3-4.6); Glomerular Filtration Rate 146.9 mL/min (90-130); Glucose 101 mg/dL (65-115); Lipase 24 U/L (13-60); Osmolality Calculated 283 mOsm/kg (285-295); Potassium 4.1 mmol/L (3.5-5.1); Sodium 136 mmol/L (136-145); Total Bilirubin 0.2 mg/dL (0.15-1.2)
[2021-08-30 01:50] LABS: Add Urine Microscopic? NO; Charge for UA Resulting for Rev
[2021-08-30 01:53] LABS: Bilirubin Urine Neg (Negative); Blood Urine Neg (Negative); Glucose Urine UA Norm (Normal); Ketones Urine Negative (Negative); Leukocyte Esterase Urine Negative (Negative); Nitrate Urine Negative (Negative); Protein Urine Neg (Negative); Sulfosalicylic Acid Urine Negative (Negative); Urine Appearance Clear (CLEAR); Urine Color Yellow (Yellow); Urobilinogen Urine Norm (Negative); pH Urine 8 (5-7)
[2021-08-30] MEDS: iohexol 300 mg/mL 100 mL Btl IV (01:54)
[2021-08-30 03:00] VITALS: BP 106/64; PULSE 76; O2SAT 97
== END 2021-08-30 03:02 | disposition home or self-care (01) ==
PROVIDERS: Emergency Provider Nurse Practitioner Family
DX: R10.32 Left lower quadrant pain (principal); N83.202 Unspecified ovarian cyst, left side
CPT/HCPCS: 74177; 80053; 81003; 83690; 84703; 85025; 96374; 96375; 99283; J1885; J2405; J7040; Q9967

== ENCOUNTER 2021-09-10 13:47 | Emergency (ER) | payer OTHER, SELFPAY ==
[2021-09-10 13:52] VITALS: BP 115/64; PULSE 74; RESP 16; TEMP 36.4; O2SAT 100; BMI 25.8
[2021-09-10 15:08] LABS: Basophils % 0.7 %; Eosinophils # 0.1 10^3/uL (0.0-0.8); Hematocrit 41.8 % (37.0-47.0); Hemoglobin 13.7 g/dL (11.5-15.3); Lymphocytes # 2.4 10^3/uL (0.8-4.8); Lymphocytes % 38.5 %; Mean Corpuscular HGB Conc 32.8 g/dL (30.0-36.0); Mean Corpuscular Hemoglobin 31.1 pg (28.0-34.0); Mean Platelet Volume 9.9 fL (7.4-10.4); Monocytes # 0.6 10^3/uL (0.2-0.9); Monocytes % 9.1 %; Neutrophils # 3.05 10^3/uL (1.8-7.7); Neutrophils % 49.5 %; Nucleated Red Blood Cells % 0 %; Platelet Count 272 10^3/cmm (130-400); Red Cell Distribution Width 12.1 % (12.1-15.1); White Blood Count 6.2 10^3/uL (4.0-10.0)
--- NOTE | 2021-09-10 15:15 | ED_ITS ---
Documented by User: GUS Melendez 09/11/21 07:00 HPI - Abdominal Pain General: Chief Complaint: Abdominal Pain Stated Complaint: Dr. parker sent for an ultrasound wants in Er Time Seen by Provider: 09/10/21 15:01 Source: patient Mode of arrival: ambulatory Limitations: no limitations History of Present Illness: Patient is a 26-year-old female presents to ED today with complaint of abdominal pain mainly to her left lower abdomen. Patient states she was seen here in our ED on 08/30 and diagnosed with a left ovarian cyst. Patient states she followed up with her PCP Dr. Villafana today stating that the pain has not improved and states she was sent back to the ED for an ultrasound to rule out an ovarian torsion. Patient is not having any vaginal discharge or vaginal bleeding. She is status post tubal ligation. She is not having any nausea or vomiting or changes in bowel movements. No fevers. Patient states her pain is radiating from her left lower abdomen proximally and into her back. She has no urinary complaints. MD elicited complaint: abdominal pain Pain Consistency: constant Location: Diffuse and LLQ Exacerbating factors: nothing Relieving factors: nothing Related Data: Date of Last Menstrual Period: 08/03/21 [facility] PFSH: Medical History No pertinent past medical history Surgical History No pertinent past surgical history Female Reproductive History: Date of last menstrual period: 08/03/21 Physical Exam GI: PALPATION: Yes Tenderness to palpation present (GI) (diffusely tender over abdomen but mainly to LLQ) Course Vital Signs: Vital signs: Vital Signs Temperature 97.4 F L 09/10/21 15:42 Pulse Rate 62 09/10/21 15:42 Respiratory Rate 18 09/10/21 15:42 Blood Pressure 115/64 09/10/21 15:42 Pulse Oximetry 100 09/10/21 15:42 MDM - Abdominal Pain Lab Data : 09/10/21 15:00 09/10/21 15:00 Labs/Radiology: Radiology Impressions Pelvic/Transvag US 09/10/21 15:33 IMPRESSION: 1. Retroverted uterus. No fibroid or mass. 2. Numerous small peripheral follicles. No adnexal or ovarian mass. 3. History of prior tubal ligation. Abdomen/Pelvis CT 09/10/21 16:21 IMPRESSION: 1. Prominent fluid in the small bowel may reflect an enteritis in the appropriate clinical setting. 2. Hepatic steatosis suspected along with several subcentimeter similar cysts compared to prior exam. 3. Constipation. Laboratory Results WBC 6.2 10^3/uL (4.0-10.0) 09/10/21 15:00 RBC 4.40 10^6/uL (4.1-5.3) 09/10/21 15:00 Hgb 13.7 g/dL (11.5-15.3) 09/10/21 15:00 Hct 41.8 % (37.0-47.0) 09/10/21 15:00 MCV 95.0 fl (81-99) 09/10/21 15:00 MCH 31.1 pg (28.0-34.0) 09/10/21 15:00 MCHC 32.8 g/dL (30.0-36.0) 09/10/21 15:00 RDW 12.1 % (12.1-15.1) 09/10/21 15:00 Plt Count 272 10^3/cmm (130-400) 09/10/21 15:00 MPV 9.9 fL (7.4-10.4) 09/10/21 15:00 Neut % (Auto) 49.5 % 09/10/21 15:00 Lymph % (Auto) 38.5 % 09/10/21 15:00 Sawyer % (Auto) 9.1 % 09/10/21 15:00 Eos % (Auto) 2.0 % 09/10/21 15:00 Baso % (Auto) 0.7 % 09/10/21 15:00 Neut # (Auto) 3.05 10^3/uL (1.8-7.7) 09/10/21 15:00 Lymph # (Auto) 2.4 10^3/uL (0.8-4.8) 09/10/21 15:00 Sawyer # (Auto) 0.6 10^3/uL (0.2-0.9) 09/10/21 15:00 Eos # (Auto) 0.1 10^3/uL (0.0-0.8) 09/10/21 15:00 Baso # (Auto) 0.0 10^3/uL (0.0-0.1) 09/10/21 15:00 Nucleated RBC % (auto) 0 % 09/10/21 15:00 Nucleated RBCs # 0.0 /100WBC 09/10/21 15:00 Sodium 137 mmol/L (136-145) 09/10/21 15:00 Potassium 3.7 mmol/L (3.5-5.1) 09/10/21 15:00 Chloride 103 mmol/L (98-107) 09/10/21 15:00 Carbon Dioxide 24 mmol/L (22-29) 09/10/21 15:00 Anion Gap 13.7 (5-19) 09/10/21 15:00 BUN 13 mg/dL (6-20) 09/10/21 15:00 Creatinine 0.5 mg/dL (0.5-0.9) 09/10/21 15:00 GFR Calculation 146.9 mL/min (90-130) H 09/10/21 15:00 Glucose 112 mg/dL (65-115) 09/10/21 15:00 Calculated Osmolality 285 mOsm/kg (285-295) 09/10/21 15:00 Calcium 8.5 mg/dL (8.5-10.5) 09/10/21 15:00 Total Bilirubin 0.8 mg/dL (0.15-1.2) 09/10/21 15:00 AST 22 U/L (0-32) 09/10/21 15:00 ALT 14 U/L (0-33) 09/10/21 15:00 Alkaline Phosphatase 63 IU/L (35-105) 09/10/21 15:00 Total Protein 6.5 g/dL (6.6-8.7) L 09/10/21 15:00 Albumin 4.4 g/dL (3.5-5.2) 09/10/21 15:00 Globulin 2.1 g/dL (1.3-4.6) 09/10/21 15:00 HCG, Qual Negative (Negative) 09/10/21 15:00 Urine Color Dark yellow (Yellow) 09/10/21 15:07 Urine Appearance Hazy (CLEAR) A 09/10/21 15:07 Urine pH 6 (5-7) 09/10/21 15:07 Ur Specific Adair 1.020 (1.005-1.030) 09/10/21 15:07 Urine Protein Neg (Negative) 09/10/21 15:07 Urine Glucose (UA) Norm (Normal) 09/10/21 15:07 Urine Ketones Negative (Negative) 09/10/21 15:07 Urine Blood Neg (Negative) 09/10/21 15:07 Urine Nitrate Negative (Negative) 09/10/21 15:07 Urine Bilirubin 1+ (Negative) H 09/10/21 15:07 Urine Urobilinogen 4 mg/dL (Negative) H 09/10/21 15:07 Ur Leukocyte Esterase Negative (Negative) 09/10/21 15:07 Urine RBC None /hpf (0-2) 09/10/21 15:07 Urine WBC Rare /hpf (0-5) 09/10/21 15:07 Ur Squamous Epith Cells 15-25 /hpf (0-5) H 09/10/21 15:07 Amorphous Sediment Not Reportable 09/10/21 15:07 Urine Bacteria Trace /hpf (NONE) 09/10/21 15:07 Urine Mucus 2+ /hpf 09/10/21 15:07 Discharge Plan Discharge Patient Disposition: Home Clinical Impression: Abdominal pain Qualifiers: Abdominal location: generalized Qualified Code(s): R10.84 - Generalized abdominal pain Condition: Stable Prescriptions: New dicyclomine 20 mg tablet 20 mg PO TID PRN (Reason: abdominal cramping/pain) Qty: 15 0RF No Action Aleve 220 mg Tablet 220 mg PO PRN 0RF diclofenac potassium 50 mg tablet 50 mg PO TID PRN (Reason: pain) Qty: 15 0RF Reglan 10 mg tablet 10 mg PO Q6H PRN (Reason: nausea and vomiting) Qty: 20 0RF Discharge Orders: Discharge ED (Routine); Ordered 09/10/21 Ordered By: Tomas Werner Discharge Diet: Advance as tolerated Discharge Activity: Increase activity as tolerated Patient Instructions: Abdominal Pain (ED) Activity Restrictions/Additional Instructions: Follow-up with medical provider as directed in the next 7 to 10 days for reevaluation. Take medications as prescribed. Return to the ER or your medical provider if condition worsens. Please read and understand discharge instructions. Thank you for choosing [facility] for your healthcare needs today. Please realize this is an emergency room and that we are providing you with a medical screening exam and this may not be complete and all inclusive of all the testing and or work up that you may need to determine your ailment or severity of your illness. It is very important that you follow up as instructed or that you return to the Emergency Department should you have concerns or if your condition changes or worsens in any way. Sign Out Sign Out Data: Patient Sign Out occurred on 09/10/21 at 17:06. Patient's care was discussed, and care was transferred from to GUS Wilcox. Coding Level of Care Code ED Ice Resurfacing Machine Operators for Chg Fwd Exam Comprehensive Documented by User: GUS Wilcox 09/10/21 22:34 HPI - Abdominal Pain General: Chief Complaint: Abdominal Pain Stated Complaint: Dr. parker sent for an ultrasound wants in Er Time Seen by Provider: 09/10/21 15:01 History of Present Illness: Associated Symptoms: Denies chills, constipation, diarrhea, dysuria, fever(s), hematochezia, hematuria, nausea and vomiting Review of Systems Const: Denies: fever(s), chills or fatigue Eyes: Denies: change in vision or eye discomfort ENMT: Denies: throat pain, odynophagia, nasal discharge or nasal congestion Card: Denies: chest pain, palpitations, edema, swelling of feet/ankles, dyspnea on exertion or orthopnea Resp: Denies: dyspnea, productive cough or non-productive cough GI: Reports: abdominal pain; Denies: nausea, vomiting, diarrhea, constipation or hematochezia : Denies: flank pain, dysuria or hematuria Musc: Denies: neck pain, back pain or extremity swelling Skin/Breast: Denies: rash or new lesions Neuro: Denies: headache(s), numbness in extremities or weakness in extremities PFS ED PFSH: Medical History No pertinent past medical history Surgical History No pertinent past surgical history Physical Exam Const: COMMON NORMALS: no acute distress, patient oriented x3 and alert GENERAL APPEARANCE: cooperative and comfortable HENMT: COMMON NORMALS: normocephalic HEAD & SCALP: normocephalic MOUTH: Normal oral and palatal mucosa present THROAT: posterior oropharynx normal and uvula midline Neck/C-Spine: COMMON NORMALS: supple GENERAL: Yes normal visual inspection Resp: COMMON NORMALS: normal respiratory effort, No retractions, No use of accessory muscles and clear to auscultation bilaterally AUSCULTATION: clear to auscultation bilaterally Cardio: COMMON NORMALS: regular rate, regular rhythm, S1 normal heart sound present, S2 normal heart sound present, No gallops present (Cardio), No clicks present (Cardio), No murmurs present (Cardio) and Peripheral pulses 2+ throughout RATE: regular rate RHYTHM: regular rhythm HEART SOUNDS: S1 normal heart sound present and S2 normal heart sound present PERIPHERAL PU LSES: Peripheral pulses 2+ throughout GI: COMMON NORMALS: Normal to inspection, nondistended, normoactive bowel sounds present, Soft to palpation and no masses PALPATION: Yes Soft to palpation and Yes Tenderness to palpation present (GI) Details: LLQ : COMMON NORMALS: Yes no CVA tenderness BLADDER/KIDNEY EXAM: Yes no CVA t enderness Back/Pelvis: COMMON NORMALS: no CVA tenderness Extremity: COMMON NORMALS: normal to inspection Neuro: COMMON NORMALS: patient oriented x3 SENSORIUM/ORIENTATION: Yes alert Skin: GENERAL SKIN EXAM: dry skin Course Vital Signs: Vital signs: Vital Signs Temperature 97.4 F L 09/10/21 15:42 Pulse Rate 62 09/10/21 15:42 Respiratory Rate 18 09/10/21 15:42 Blood Pressure 115/64 09/10/21 15:42 Pulse Oximetry 100 09/10/21 15:42 MDM - Abdominal Pain Medical Decision Making Patient is a 26-year-old female comes to the ED with abdominal pain. She denies any other symptoms. Pain is located left lower quadrant of the abdomen. She was sent here by her PCP to have an ultrasound to check for ovarian torsion. Labs are unremarkable. Ultrasound showed no acute findings. CT of abdomen pelvis showed signs of some enteritis hepatics steatosis and some constipation. Patient diagnosed with abdominal pain and discharged home. She was told to follow-up with her PCP in 7 to 10 days for reevaluation. Center with a prescription for dicyclomine to help with her abdominal cramping pain. Return to ED precautions given. Patient understood and agreed with plan. Lab Data I reviewed the patient's lab results. : 09/10/21 15:00 09/10/21 15:00 Labs/Radiology: Radiology Impressions Pelvic/Transvag US 09/10/21 15:33 IMPRESSION: 1. Retroverted uterus. No fibroid or mass. 2. Numerous small peripheral follicles. No adnexal or ovarian mass. 3. History of prior tubal ligation. Abdomen/Pelvis CT 09/10/21 16:21 IMPRESSION: 1. Prominent fluid in the small bowel may reflect an enteritis in the appropriate clinical setting. 2. Hepatic steatosis suspected along with several subcentimeter similar cysts compared to prior exam. 3. Constipation. Laboratory Results WBC 6.2 10^3/uL (4.0-10.0) 09/10/21 15:00 RBC 4.40 10^6/uL (4.1-5.3) 09/10/21 15:00 Hgb 13.7 g/dL (11.5-15.3) 09/10/21 15:00 Hct 41.8 % (37.0-47.0) 09/10/21 15:00 MCV 95.0 fl (81-99) 09/10/21 15:00 MCH 31.1 pg (28.0-34.0) 09/10/21 15:00 MCHC 32.8 g/dL (30.0-36.0) 09/10/21 15:00 RDW 12.1 % (12.1-15.1) 09/10/21 15:00 Plt Count 272 10^3/cmm (130-400) 09/10/21 15:00 MPV 9.9 fL (7.4-10.4) 09/10/21 15:00 Neut % (Auto) 49.5 % 09/10/21 15:00 Lymph % (Auto) 38.5 % 09/10/21 15:00 Sawyer % (Auto) 9.1 % 09/10/21 15:00 Eos % (Auto) 2.0 % 09/10/21 15:00 Baso % (Auto) 0.7 % 09/10/21 15:00 Neut # (Auto) 3.05 10^3/uL (1.8-7.7) 09/10/21 15:00 Lymph # (Auto) 2.4 10^3/uL (0.8-4.8) 09/10/21 15:00 Sawyer # (Auto) 0.6 10^3/uL (0.2-0.9) 09/10/21 15:00 Eos # (Auto) 0.1 10^3/uL (0.0-0.8) 09/10/21 15:00 Baso # (Auto) 0.0 10^3/uL (0.0-0.1) 09/10/21 15:00 Nucleated RBC % (auto) 0 % 09/10/21 15:00 Nucleated RBCs # 0.0 /100WBC 09/10/21 15:00 Sodium 137 mmol/L (136-145) 09/10/21 15:00 Potassium 3.7 mmol/L (3.5-5.1) 09/10/21 15:00 Chloride 103 mmol/L (98-107) 09/10/21 15:00 Carbon Dioxide 24 mmol/L (22-29) 09/10/21 15:00 Anion Gap 13.7 (5-19) 09/10/21 15:00 BUN 13 mg/dL (6-20) 09/10/21 15:00 Creatinine 0.5 mg/dL (0.5-0.9) 09/10/21 15:00 GFR Calculation 146.9 mL/min (90-130) H 09/10/21 15:00 Glucose 112 mg/dL (65-115) 09/10/21 15:00 Calculated Osmolality 285 mOsm/kg (285-295) 09/10/21 15:00 Calcium 8.5 mg/dL (8.5-10.5) 09/10/21 15:00 Total Bilirubin 0.8 mg/dL (0.15-1.2) 09/10/21 15:00 AST 22 U/L (0-32) 09/10/21 15:00 ALT 14 U/L (0-33) 09/10/21 15:00 Alkaline Phosphatase 63 IU/L (35-105) 09/10/21 15:00 Total Protein 6.5 g/dL (6.6-8.7) L 09/10/21 15:00 Albumin 4.4 g/dL (3.5-5.2) 09/10/21 15:00 Globulin 2.1 g/dL (1.3-4.6) 09/10/21 15:00 HCG, Qual Negative (Negative) 09/10/21 15:00 Urine Color Dark yellow (Yellow) 09/10/21 15:07 Urine Appearance Hazy (CLEAR) A 09/10/21 15:07 Urine pH 6 (5-7) 09/10/21 15:07 Ur Specific Adair 1.020 (1.005-1.030) 09/10/21 15:07 Urine Protein Neg (Negative) 09/10/21 15:07 Urine Glucose (UA) Norm (Normal) 09/10/21 15:07 Urine Ketones Negative (Negative) 09/10/21 15:07 Urine Blood Neg (Negative) 09/10/21 15:07 Urine Nitrate Negative (Negative) 09/10/21 15:07 Urine Bilirubin 1+ (Negative) H 09/10/21 15:07 Urine Urobilinogen 4 mg/dL (Negative) H 09/10/21 15:07 Ur Leukocyte Esterase Negative (Negative) 09/10/21 15:07 Urine RBC None /hpf (0-2) 09/10/21 15:07 Urine WBC Rare /hpf (0-5) 09/10/21 15:07 Ur Squamous Epith Cells 15-25 /hpf (0-5) H 09/10/21 15:07 Amorphous Sediment Not Reportable 09/10/21 15:07 Urine Bacteria Trace /hpf (NONE) 09/10/21 15:07 Urine Mucus 2+ /hpf 09/10/21 15:07 Discharge Plan Discharge Patient Disposition: Home Clinical Impression: Abdominal pain Qualifiers: Abdominal location: generalized Qualified Code(s): R10.84 - Generalized abdominal pain Condition: Stable Prescriptions: New dicyclomine 20 mg tablet 20 mg PO TID PRN (Reason: abdominal cramping/pain) Qty: 15 0RF No Action Aleve 220 mg Tablet 220 mg PO PRN 0RF diclofenac potassium 50 mg tablet 50 mg PO TID PRN (Reason: pain) Qty: 15 0RF Reglan 10 mg tablet 10 mg PO Q6H PRN (Reason: nausea and vomiting) Qty: 20 0RF Discharge Orders: Discharge ED (Routine); Ordered 09/10/21 Ordered By: Tomas Werner Discharge Diet: Advance as tolerated Discharge Activity: Increase activity as tolerated Patient Instructions: Abdominal Pain (ED) Activity Restrictions/Additional Instructions: Follow-up with medical provider as directed in the next 7 to 10 days for reevaluation. Take medications as prescribed. Return to the ER or your medical provider if condition worsens. Please read and understand discharge instructions. Thank you for choosing [facility] for your healthcare needs today. Please realize this is an emergency room and that we are providing you with a me dical screening exam and this may not be complete and all inclusive of all the testing and or work up that you may need to determine your ailment or severity of your illness. It is very important that you follow up as instructed or that you return to the Emergency Department should you have concerns or if your condition changes or worsens in any way. Sign Out Sign Out Data: Patient Sign Out occurred on 09/10/21 at 17:06. Patient's care was discussed, and care was transferred from to GUS Wilcox. Coding Level of Care Code ED Ice Resurfacing Machine Operators for Chg Fwd Exam Comprehensive
[2021-09-10 15:23] LABS: HCG, Serum Qual Negative (Negative)
[2021-09-10 15:27] LABS: Alanine Aminotransferase 14 U/L (0-33); Albumin Level 4.4 g/dL (3.5-5.2); Alkaline Phosphatase 63 IU/L (35-105); Anion Gap 13.7 (5-19); Aspartate Amino Transferase 22 U/L (0-32); Blood Urea Nitrogen 13 mg/dL (6-20); Calcium 8.5 mg/dL (8.5-10.5); Carbon Dioxide 24 mmol/L (22-29); Chloride 103 mmol/L (98-107); Globulin 2.1 g/dL (1.3-4.6); Glomerular Filtration Rate 146.9 mL/min (90-130); Glucose 112 mg/dL (65-115); Osmolality Calculated 285 mOsm/kg (285-295); Potassium 3.7 mmol/L (3.5-5.1); Sodium 137 mmol/L (136-145); Total Bilirubin 0.8 mg/dL (0.15-1.2); Total Protein 6.5 g/dL (6.6-8.7)
[2021-09-10 15:31] LABS: Bilirubin Urine 1+ (Negative); Blood Urine Neg (Negative); Glucose Urine UA Norm (Normal); Ketones Urine Negative (Negative); Leukocyte Esterase Urine Negative (Negative); Nitrate Urine Negative (Negative); Protein Urine Neg (Negative); Urine Appearance Hazy (CLEAR); Urine Color Dark Yellow (Yellow); Urobilinogen Urine 4 mg/dL (Negative); pH Urine 6 (5-7)
--- NOTE | 2021-09-10 15:33 | US_ITS ---
WS: [id number] TRANSABDOMINAL PELVIC AND TRANSVAGINAL PELVIC ULTRASOUND HISTORY: L lower pelvic pain; recent dx of hemorrhagic ovarian cyst, history of prior tubal ligation. COMPARISON: 12/30/2020 Uterus: 6.6 cm x 5.7 cm x 4.3 cm. Retroverted uterus is normal size. No fibroid or mass. Endometrium: 0.8 cm. Normal. Right ovary: 3.8 cm x 2.4 cm x 1.9 cm. Normal size and vascularity with multiple small follicles. Left ovary: 3.8 cm x 2.7 cm x 1.6 cm. Normal size and vascularity with multiple small follicles. No free fluid. US/US pelvic with transvaginal IMPRESSION: 1. Retroverted uterus. No fibroid or mass. 2. Numerous small peripheral follicles. No adnexal or ovarian mass. 3. History of prior tubal ligation.
[2021-09-10 15:35] LABS: Add Urine Microscopic? YES; Bacteria Urine TRACE /hpf; Mucus Urine 2+ /hpf; Squamous Epithelial Cell Urine 15-25 /hpf (0-5); WBC Urine RARE /hpf (0-5)
[2021-09-10 15:36] LABS: Add Urine Culture? No
[2021-09-10 15:42] VITALS: BP 115/64; PULSE 62; RESP 18; TEMP 36.3; O2SAT 100
--- NOTE | 2021-09-10 16:21 | CTR_ITS ---
PROCEDURE INFORMATION: Exam: CT Abdomen And Pelvis With Contrast Exam date and time: 09/10/2021 4:21 PM Age: 26 years old Clinical indication: Abdominal pain; Localized; Left lower quadrant (llq); Patient HX: C/O llq abd pain; Additional info: Diffuse abdominal pain; Mainly L lower TECHNIQUE: Imaging protocol: Computed tomography of the abdomen and pelvis with contrast. Radiation optimization: All CT scans at this facility use at least one of these dose optimization techniques: automated exposure control; mA and/or kV adjustment per patient size (includes targeted exams where dose is matched to clinical indication); or iterative reconstruction. Contrast material: OMNI 300; Contrast volume: 90 ml; Contrast route: INTRAVENOUS (IV); COMPARISON: CT abdomen pelvis w con* [id number] 08/30/2021 1:55 AM RADIATION DOSE METRICS: Total DLP (mGy-cm): 102.37 FINDINGS: Liver: Hepatic steatosis suspected along with several subcentimeter similar cysts compared to prior exam. Gallbladder and bile ducts: Normal. No calcified stones. No ductal dilation. Pancreas: Normal. No ductal dilation. Spleen: Normal. No splenomegaly. Adrenal glands: Normal. No mass. Kidneys and ureters: Normal. No hydronephrosis. Stomach and bowel: Prominent fluid in the small bowel may reflect an enteritis in the appropriate clinical setting. Constipation. Appendix: No evidence of appendicitis. Intraperitoneal space: Unremarkable. No free air. No significant fluid collection. Vasculature: Unremarkable. No abdominal aortic aneurysm. Lymph nodes: Unremarkable. No enlarged lymph nodes. Urinary bladder: Unremarkable as visualized. Reproductive: Unremarkable as visualized. Bones/joints: Unremarkable. No acute fracture. Soft tissues: Unremarkable. CT/CT abdomen pelvis w con* [id number] IMPRESSION: 1. Prominent fluid in the small bowel may reflect an enteritis in the appropriate clinical setting. 2. Hepatic steatosis suspected along with several subcentimeter similar cysts compared to prior exam. 3. Constipation.
[2021-09-10] MEDS: iohexol 300 mg/mL 100 mL Btl IV (17:09)
== END 2021-09-10 18:15 | disposition home or self-care (01) ==
PROVIDERS: Physician Assistant; Emergency Provider Physician Assistant
DX: R10.84 Generalized abdominal pain (principal)
CPT/HCPCS: 74177; 76830; 76856; 80053; 81001; 84703; 85025; 99283; Q9967

== ENCOUNTER 2021-09-30 03:21 | Emergency (ER) | payer OTHER, SELFPAY ==
[2021-09-30 03:31] VITALS: BP 131/50; PULSE 86; RESP 18; TEMP 36.8; O2SAT 98; BMI 25.8
[2021-09-30 03:37] VITALS: PULSE 80; RESP 18; O2SAT 98
[2021-09-30] MEDS: sodium chloride 0.9% 1,000 ML 999 ML IV (03:38)
--- NOTE | 2021-09-30 03:39 | XRR_ITS ---
PROCEDURE INFORMATION: Exam: XR Abdomen Exam date and time: 09/30/2021 2:47 AM Age: 26 years old Clinical indication: Abdominal pain; Prior surgery; Surgery type: Tubal ligation. ; Patient HX: C/O periumbilical pain with nausea. ; Additional info: Abd pain TECHNIQUE: Imaging protocol: XR of the abdomen. Views: Frontal supine view of the abdomen. 1 View. COMPARISON: CT abdomen pelvis w con* [id number] 09/10/2021 5:08 PM FINDINGS: Gastrointestinal tract: Nonobstructive bowel gas pattern. There is a moderate amount of stool throughout the colon, suggestive of constipation. Bones/joints: Unremarkable. XR/XR KUB [id number] IMPRESSION: Imaging findings suggestive of constipation.
--- NOTE | 2021-09-30 03:40 | ED_ITS ---
HPI - Abdominal Pain General: Chief Complaint: Abdominal Pain Stated Complaint: ABD Pains Time Seen by Provider: 09/30/21 03:26 Source: patient Mode of arrival: ambulatory Limitations: no limitations History of Present Illness: 26-year-old female who states that starting at 5 PM last night she having a sharp pain at her bellybutton. States present was 8 out of 10 she states she is at work finished her job at home and she had states her pain is improved. States it is currently a 1 out of 10. She had similar pain earlier this month was seen here had a normal ultrasound and abdominal CT. She denies any fever denies any vomiting or diarrhea denies any worsening improving factors. Associated Symptoms: Denies chills, dysuria and fever(s) Related Data: Date of Last Menstrual Period: 08/03/21 Review of Systems Const: Denies: fever(s), chills, body aches or change in appetite Eyes: Denies: blurry vision or eye discomfort ENMT: Denies: throat pain or dental pain Card: Denies: chest pain Resp: Denies: dyspnea GI: Reports: abdominal pain : Denies: dysuria Musc: Denies: neck pain or back pain Skin/Breast: Denies: rash Neuro: Denies: headache(s) Psych: Denies: depression Sam/Lymph: Denies: easy bruising All/Imm: Denies: urticaria PFSH ED PFSH: Medical History No pertinent past medical history Surgical History No pertinent past surgical history Female Reproductive History: Date of last menstrual period: 08/03/21 Physical Exam Const: COMMON NORMALS: no acute distress, patient oriented x3 and healthy appearing HENMT: COMMON NORMALS: normocephalic and atraumatic HEAD & SCALP: normocep halic and atraumatic Eye: COMMON NORMALS: Equal, round and reactive pupils present and EOMs intact bilaterally PUPIL: Yes Equal, round and reactive pupils present Neck/C-Spine: COMMON NORMALS: full ROM and supple Chest: COMMONS NORMALS: normal inspection of the chest and normal palpation of entire chest wall Resp: COMMON NORMALS: normal respiratory effort, No retractions, No use of accessory muscles and clear to auscultation bilaterally AUSCULTATION: clear to auscultation bilaterally Cardio: COMMON NORMALS: regular rate, regular rhythm and No murmurs present (Cardio) RATE: regular rate RHYTHM: regular rhythm GI: COMMON NORMALS: Normal to inspection, nondistended, normoactive bowel sounds present, Soft to palpation, non-tender and no masses PALPATION: Yes Soft to palpation Extremity: COMMON NORMALS: normal to inspection and full ROM Neuro: COMMON NORMALS: patient oriented x3, moves all extremities and no focal motor deficits Psych: COMMON NORMALS: mental status grossly normal, Normal thought process present and cooperative THOUGHT PROCESS: Normal thought process present Skin: COMMON NORMALS: no rashes or lesions noted and no wounds GENERAL SKIN EXAM: no rashes or lesions noted Course Vital Signs: Vital signs: Vital Signs Temperature 98.3 F 09/30/21 03:31 Pulse Rate 80 09/30/21 03:37 Respiratory Rate 18 09/30/21 03:37 Blood Pressure 131/50 09/30/21 03:31 Pulse Oximetry 98 09/30/21 03:37 MDM - Abdominal Pain Medical Decision Making Patient presents with abdominal pain is since resolved x-ray does show constipation she could be having pain, or constipation repeat abdominal exam at discharge is benign we will give her lactulose here and give her MiraLAX for home and she is stable for discharge. Lab Data : 09/30/21 03:35 09/30/21 03:35 Labs/Radiology: Laboratory Results WBC 9.1 10^3/uL (4.0-10.0) 09/30/21 03:35 RBC 4.51 10^6/uL (4.1-5.3) 09/30/21 03:35 Hgb 14.2 g/dL (11.5-15.3) 09/30/21 03:35 Hct 41.2 % (37.0-47.0) 09/30/21 03:35 MCV 91.4 fl (81-99) 09/30/21 03:35 MCH 31.5 pg (28.0-34.0) 09/30/21 03:35 MCHC 34.5 g/dL (30.0-36.0) 09/30/21 03:35 RDW 12.3 % (12.1-15.1) 09/30/21 03:35 Plt Count 283 10^3/cmm (130-400) 09/30/21 03:35 MPV 9.8 fL (7.4-10.4) 09/30/21 03:35 Neut % (Auto) 45.6 % 09/30/21 03:35 Lymph % (Auto) 40.9 % 09/30/21 03:35 [place] % (Auto) 10.9 % 09/30/21 03:35 Eos % (Auto) 1.9 % 09/30/21 03:35 Baso % (Auto) 0.5 % 09/30/21 03:35 Neut # (Auto) 4.15 10^3/uL (1.8-7.7) 09/30/21 03:35 Lymph # (Auto) 3.7 10^3/uL (0.8-4.8) 09/30/21 03:35 [place] # (Auto) 1.0 10^3/uL (0.2-0.9) H 09/30/21 03:35 Eos # (Auto) 0.2 10^3/uL (0.0-0.8) 09/30/21 03:35 Baso # (Auto) 0.1 10^3/uL (0.0-0.1) 09/30/21 03:35 Nucleated RBC % (auto) 0 % 09/30/21 03:35 Nucleated RBCs # 0.0 /100WBC 09/30/21 03:35 Sodium 135 mmol/L (136-145) L 09/30/21 03:35 Potassium 3.9 mmol/L (3.5-5.1) 09/30/21 03:35 Chloride 99 mmol/L (98-107) 09/30/21 03:35 Carbon Dioxide 25 mmol/L (22-29) 09/30/21 03:35 Anion Gap 14.9 (5-19) 09/30/21 03:35 BUN 11 mg/dL (6-20) 09/30/21 03:35 Creatinine 0.5 mg/dL (0.5-0.9) 09/30/21 03:35 GFR Calculation 146.9 mL/min (90-130) H 09/30/21 03:35 Glucose 114 mg/dL (65-115) 09/30/21 03:35 Calculated Osmolality 280 mOsm/kg (285-295) L 09/30/21 03:35 Calcium 9.8 mg/dL (8.5-10.5) 09/30/21 03:35 Total Bilirubin 0.7 mg/dL (0.15-1.2) 09/30/21 03:35 AST 21 U/L (0-32) 09/30/21 03:35 ALT 16 U/L (0-33) 09/30/21 03:35 Alkaline Phosphatase 75 IU/L (35-105) 09/30/21 03:35 Total Protein 7.0 g/dL (6.6-8.7) 09/30/21 03:35 Albumin 4.8 g/dL (3.5-5.2) 09/30/21 03:35 Globulin 2.2 g/dL (1.3-4.6) 09/30/21 03:35 Lipase 20 U/L (13-60) 09/30/21 03:35 HCG, Qual Negative (Negative) 09/30/21 03:35 Urine Color Yellow (Yellow) 09/30/21 03:48 Urine Appearance Sl hazy (CLEAR) 09/30/21 03:48 Urine pH 5 (5-7) 09/30/21 03:48 Ur Specific [place] 1.020 (1.005-1.030) 09/30/21 03:48 Urine Protein Neg (Negative) 09/30/21 03:48 Urine Glucose (UA) Norm (Normal) 09/30/21 03:48 Urine Ketones Negative (Negative) 09/30/21 03:48 Urine Blood Neg (Negative) 09/30/21 03:48 Urine Nitrate Negative (Negative) 09/30/21 03:48 Urine Bilirubin Neg (Negative) 09/30/21 03:48 Urine Urobilinogen 1 mg/dL (Negative) H 09/30/21 03:48 Ur Leukocyte Esterase 1+ (Negative) H 09/30/21 03:48 Urine RBC 0-4 /hpf (0-2) H 09/30/21 03:48 Urine WBC 0-4 /hpf (0-5) H 09/30/21 03:48 Ur Squamous Epith Cells 15-25 /hpf (0-5) H 09/30/21 03:48 Amorphous Sediment 2+ /hpf 09/30/21 03:48 Urine Bacteria 1+ /hpf (NONE) H 09/30/21 03:48 Urine Mucus Trace /hpf 09/30/21 03:48 Discharge Plan Discharge Patient Disposition: Home Clinical Impression: Constipation Qualifiers: Constipation type: unspecified constipation type Qualified Code(s): K59.00 - Constipation, unspecified Abdominal pain Qualifiers: Abdominal location: generalized Qualified Code(s): R10.84 - Generalized abdominal pain Condition: Stable Prescriptions: New Miralax 17 gram/dose powder 17 g PO DAILY PRN (Reason: constipation) Qty: 119 0RF No Action Aleve 220 mg Tablet 220 mg PO PRN 0RF diclofenac potassium 50 mg tablet 50 mg PO TID PRN (Reason: pain) Qty: 15 0RF dicyclomine 20 mg tablet 20 mg PO TID PRN (Reason: abdominal cramping/pain) Qty: 15 0RF Reglan 10 mg tablet 10 mg PO Q6H PRN (Reason: nausea and vomiting) Qty: 20 0RF Discharge Orders: Discharge ED (Routine); Ordered 09/30/21 Ordered By: Mark Dhillon Discharge Diet: Advance as tolerated Discharge Activity: Resume usual activity Patient Instructions: Constipation (ED), Abdominal Pain (ED) Stand Alone Forms: Work/School Release Coding Level of Care Code ED Contract Admin for [employer] Fwd Exam Comprehensive
[2021-09-30 03:42] LABS: Basophils # 0.1 10^3/uL (0.0-0.1); Basophils % 0.5 %; Eosinophils # 0.2 10^3/uL (0.0-0.8); Eosinophils % 1.9 %; Hematocrit 41.2 % (37.0-47.0); Hemoglobin 14.2 g/dL (11.5-15.3); Lymphocytes # 3.7 10^3/uL (0.8-4.8); Lymphocytes % 40.9 %; Mean Corpuscular HGB Conc 34.5 g/dL (30.0-36.0); Mean Corpuscular Hemoglobin 31.5 pg (28.0-34.0); Mean Corpuscular Volume 91.4 fl (81-99); Mean Platelet Volume 9.8 fL (7.4-10.4); Monocytes % 10.9 %; Neutrophils # 4.15 10^3/uL (1.8-7.7); Neutrophils % 45.6 %; Nucleated Red Blood Cells % 0 %; Platelet Count 283 10^3/cmm (130-400); Red Blood Count 4.51 10^6/uL (4.1-5.3); Red Cell Distribution Width 12.3 % (12.1-15.1); White Blood Count 9.1 10^3/uL (4.0-10.0)
[2021-09-30] MEDS: ondansetron 2 mg/ML SDV 2 mL 4 MG IVP (03:49)
[2021-09-30 03:59] LABS: Add Urine Culture? No; Add Urine Microscopic? YES; Amorphous Sediment Urine 2+ /hpf; Bacteria Urine 1+ /hpf; Bilirubin Urine Neg (Negative); Blood Urine Neg (Negative); Glucose Urine UA Norm (Normal); Ketones Urine Negative (Negative); Leukocyte Esterase Urine 1+ (Negative); Mucus Urine TRACE /hpf; Nitrate Urine Negative (Negative); Protein Urine Neg (Negative); RBC Urine 0-4 /hpf (0-2); Squamous Epithelial Cell Urine 15-25 /hpf (0-5); Urine Appearance SL Hazy (CLEAR); Urine Color Yellow (Yellow); Urobilinogen Urine 1 mg/dL (Negative); WBC Urine 0-4 /hpf (0-5); pH Urine 5 (5-7)
[2021-09-30 04:02] LABS: Alanine Aminotransferase 16 U/L (0-33); Albumin Level 4.8 g/dL (3.5-5.2); Alkaline Phosphatase 75 IU/L (35-105); Anion Gap 14.9 (5-19); Aspartate Amino Transferase 21 U/L (0-32); Blood Urea Nitrogen 11 mg/dL (6-20); Calcium 9.8 mg/dL (8.5-10.5); Carbon Dioxide 25 mmol/L (22-29); Chloride 99 mmol/L (98-107); Globulin 2.2 g/dL (1.3-4.6); Glomerular Filtration Rate 146.9 mL/min (90-130); Glucose 114 mg/dL (65-115); HCG, Serum Qual Negative (Negative); Lipase 20 U/L (13-60); Osmolality Calculated 280 mOsm/kg (285-295); Potassium 3.9 mmol/L (3.5-5.1); Sodium 135 mmol/L (136-145); Total Bilirubin 0.7 mg/dL (0.15-1.2)
[2021-09-30] MEDS: lactulose oral liq 20 gm/30 mL UDC 30 GM PO (04:16)
[2021-09-30 04:20] VITALS: BP 112/59; PULSE 72; RESP 14; O2SAT 100
== END 2021-09-30 04:27 | disposition home or self-care (01) ==
PROVIDERS: Emergency Provider Emergency Medicine
DX: K59.00 Constipation, unspecified (principal); R10.84 Generalized abdominal pain
CPT/HCPCS: 74018; 80053; 81001; 83690; 84703; 85025; 96361; 96374; 99283; J2405; J7030

== ENCOUNTER 2021-10-28 09:20 | Emergency (ER) | payer OTHER, SELFPAY ==
[2021-10-28 09:36] VITALS: BP 99/60; PULSE 78; RESP 16; TEMP 36.6; O2SAT 98; BMI 25.7
--- NOTE | 2021-10-28 09:54 | XR_ITS ---
WS: [id number] Exam: XR chest 1V portable [id number] Date/Time of Exam: 10/28/2021 9:55 AM Reason For Exam: cough Comparison 03/17/2021. Lungs are clear and fully expanded. Normal cardiomediastinal silhouette. No pleural effusions. Skin j ewelry noted in the region of the breasts. Mild thoracolumbar scoliosis. XR/XR chest 1V portable [id number] IMPRESSION: 1. No acute cardiopulmonary finding.
--- NOTE | 2021-10-28 10:10 | W.ED.WEAKNES ---
HPI - Weakness General: Chief complaint: Weakness Stated complaint: dizziness/nausea/cough/chest congestion/weak Time Seen by Provider: 10/28/21 09:25 History of Present Illness: Patient is a 26-year-old female comes to the ED with upper respiratory symptoms. Past medical history of asthma. Symptoms started approximately 4 days ago. She endorses having bilateral ear pain, cough, nasal drainage and congestion and generalized weakness. Endorses having some nausea, but denies any emesis. She has been able to tolerate p.o. food and fluids since symptoms started. Endorses some increased urine frequency. Denies any chest pain, fever, chills, shortness of breath, abdominal pain, diarrhea. Associated symptoms: Denies chest pain, chills, dysuria, fever(s), headache(s), nausea or vomiting Review of Systems Const: Reports: body aches and fatigue; Denies: fever(s) or chills Eyes: Denies: change in vision or eye discomfort ENMT: Reports: ear or mastoid pain, nasal discharge and nasal congestion; Denies: throat pain, odynophagia or ear discharge Card: Denies: chest pain, palpitations, edema, swelling of feet/ankles, dyspnea on exertion or orthopnea Resp: Reports: non-productive cough; Denies: dyspnea or productive cough GI: Denies: abdominal pain, nausea, vomiting, diarrhea, constipation or hematochezia : Reports: urinary frequency (Increased urinary frequency); Denies: flank pain, dysuria or hematuria Musc: Denies: neck pain, back pain or extremity swelling Skin/Breast: Denies: rash or new lesions Neuro: Denies: headache(s), numbness in extremities or weakness in extremities PFS ED PFSH: Medical History Asthma Surgical History No pertinent past surgical history Female Reproductive History: Date of last menstrual period: 08/03/21 Physical Exam Const: COMMON NORMALS: no acute distress, patient oriented x3 and alert GENERAL APPEARANCE: cooperative and comfortable HENMT: COMMON NORMALS: normocephalic and EAC's normal HEAD & SCALP: normocephalic EXTERNAL AUDITORY CANAL: EAC's normal TYMPANIC MEMBRANE: TM abnormal TM laterality: right Details: fluid behind TM and left Details: erythematous and fluid behind TM MOUTH: Normal oral and palatal mucosa present THROAT: posterior oropharynx normal and uvula midline Eye: COMMON NORMALS: Equal, round and reactive pupils present and conjunctivae normal CONJUNCTIVA: Yes conjunctivae normal PUPIL: Yes Equal, round and reactive pupils present Neck/C-Spine: COMMON NORMALS: supple GENERAL: Yes normal visual inspection Resp: COMMON NORMALS: normal respiratory effort, No retractions, No use of accessory muscles and clear to auscultation bilaterally AUSCULTATION: clear to auscultation bilaterally Cardio: COMMON NORMALS: regular rate, regular rhythm, S1 normal heart sound present, S2 normal heart sound present, No gallops present (Cardio), No clicks present (Cardio), No murmurs present (Cardio) and Peripheral pulses 2+ throughout RATE: regular rate RHYTHM: regular rhythm HEART SOUNDS: S1 normal heart sound present and S2 normal heart sound present PERIPHERAL PULSES: Peripheral pulses 2+ throughout GI: COMMON NORMALS: Normal to inspection, nondistended, normoactive bowel sounds present, Soft to palpation, non-tender and no masses PALPATION: Yes Soft to palpation : COMMON NORMALS: Yes no CVA tenderness BLADDER/KIDNEY EXAM: Yes no CVA tenderness Back/Pelvis: COMMON NORMALS: no CVA tenderness Extremity: COMMON NORMALS: normal to inspection Neuro: COMMON NORMALS: patient oriented x3 and moves all extremities SENSORIUM/ORIENTATION: Yes alert SPEECH: speech normal GAIT: Yes Normal gait present Skin: GENERAL SKIN EXAM: dry skin Course Vital Signs: Vital signs: Vital Signs Temperature 98 F 10/28/21 09:36 Pulse Rate 78 10/28/21 09:36 Respiratory Rate 16 10/28/21 09:36 Blood Pressure 99/60 10/28/21 09:36 Pulse Oximetry 98 10/28/21 09:36 MDM - Weakness Medical Decision Making Patient is a 26-year-old female comes in the ED with upper respiratory symptoms. She has a cough, body aches nasal congestion drainage and diarrhea. She is also having bilateral ear pain. She is able to tolerate p.o. food and fluids and has not had any episodes of emesis. Vitals are stable and patient is afebrile. Patient appears nontoxic and in no acute distress or pain. She does left otitis media and the rest of it exam is benign. UA was unremarkable. Chest x-ray showed no acute findings. Influenza and COVID were negative. Patient diagnosed with otitis media and upper respiratory viral infection. She was discharged home with amoxicillin and some Zofran to help with any nausea. She was told to follow-up with her PCP in the next week for reevaluation. Return to ED precautions given. Patient understood and agreed with plan Lab Data Radiology Impressions Chest X-Ray 10/28/21 09:54 IMPRESSION: 1. No acute cardiopulmonary finding. Laboratory Results Urine Color Yellow (Yellow) 10/28/21 10:34 Urine Appearance Hazy (CLEAR) A 10/28/21 10:34 Urine pH 5 (5-7) 10/28/21 10:34 Ur Specific [place] 1.025 (1.005-1.030) 10/28/21 10:34 Urine Protein Neg (Negative) 10/28/21 10:34 Urine Glucose (UA) Norm (Normal) 10/28/21 10:34 Urine Ketones Negative (Negative) 10/28/21 10:34 Urine Blood Neg (Negative) 10/28/21 10:34 Urine Nitrate Negative (Negative) 10/28/21 10:34 Urine Bilirubin 1+ (Negative) H 10/28/21 10:34 Urine Urobilinogen 1 mg/dL (Negative) H 10/28/21 10:34 Ur Leukocyte Esterase 1+ (Negative) H 10/28/21 10:34 Urine RBC Rare /hpf (0-2) 10/28/21 10:34 Urine WBC 5-10 /hpf (0-5) H 10/28/21 10:34 Ur Squamous Epith Cells 10-15 /hpf (0-5) H 10/28/21 10:34 Amorphous Sediment Not Reportable 10/28/21 10:34 Urine Bacteria 1+ /hpf (NONE) H 10/28/21 10:34 Urine HCG, Qual Negative (Negative) 10/28/21 10:34 Nasal Influ A H1 2009 PCR Not detected (NOT DETECT) 10/28/21 10:42 Coronavirus 229E (PCR) Not detected (NOT DETECT) 10/28/21 10:42 Influenza A (H1) PCR Not detected (NOT DETECT) 10/28/21 10:42 Influenza A (H3) PCR Not detected (NOT DETECT) 10/28/21 10:42 Influenza Type A Ag Cancelled 10/28/21 10:42 Influenza Type A (PCR) Not detected (NOT DETECT) 10/28/21 10:42 Influenza Type B Ag Cancelled 10/28/21 10:42 Influenza Type B (PCR) Not detected (NOT DETECT) 10/28/21 10:42 SARS-CoV-2 (PCR) Not detected (NOT DETECT) 10/28/21 10:42 Discharge Plan Discharge Patient Disposition: Home Clinical Impression: Upper respiratory infection, viral Otitis media Qualifiers: Otitis media type: serous Chronicity: acute Laterality: unspecified laterality Recurrence: non-recurrent Qualified Code(s): H65.00 - Acute serous otitis media, unspecified ear Condition: Stable Prescriptions: New amoxicillin 500 mg capsule 500 mg PO BID 10 Days Qty: 20 0RF ondansetron 4 mg tablet,disintegrating 4 mg PO Q8H PRN (Reason: nausea and vomiting) Qty: 15 0RF No Action Aleve 220 mg Tablet 220 mg PO PRN 0RF diclofenac potassium 50 mg tablet 50 mg PO TID PRN (Reason: pain) Qty: 15 0RF dicyclomine 20 mg tablet 20 mg PO TID PRN (Reason: abdominal cramping/pain) Qty: 15 0RF Reglan 10 mg tablet 10 mg PO Q6H PRN (Reason: nausea and vomiting) Qty: 20 0RF Miralax 17 gram/dose powder 17 g PO DAILY PRN (Reason: constipation) Qty: 119 0RF Discharge Orders: Discharge ED (Routine); Ordered 10/28/21 Ordered By: Tomas Werner Discharge Diet: Regular Discharge Activity: Increase activity as tolerated Patient Instructions: Otitis Media - Adult, Upper Respiratory Infection - Adult Activity Restrictions/Additional Instructions: Follow-up with medical provider as directed in the next 7 to 10 days for reevaluation. Your COVID-19 and influenza labs are pending and results should be back by this afternoon. You can contact [facility] this afternoon to find out lab results. Take medications as prescribed. Drink plenty of fluids and stay hydrated. Take [id number] Tylenol or Motrin for any fevers. Return to the ER or your medical provider if condition worsens. Please read and understand discharge instructions. Thank you for choosing [facility] for your healthcare needs today. Please realize this is an emergency room and that we are providing you with a medical screening exam and this may not be complete and all inclusive of all the testing and or work up that you may need to determine your ailment or severity of your illness. It is very important that you follow up as instructed or that you return to the Emergency Department should you have concerns or if your condition changes or worsens in any way. Stand Alone Forms: Work/School Release Coding Level of Care Code ED Closed Circuit Screen Watcher for Gio Fwd Exam Comprehensive
[2021-10-28 11:59] LABS: Bilirubin Urine 1+ (Negative); Blood Urine Neg (Negative); Glucose Urine UA Norm (Normal); Ketones Urine Negative (Negative); Nitrate Urine Negative (Negative); Protein Urine Neg (Negative); Specific Gravity, Urine 1.025 (1.005-1.030); Urine Appearance Hazy (CLEAR); Urine Color Yellow (Yellow); Urobilinogen Urine 1 mg/dL (Negative); pH Urine 5 (5-7)
[2021-10-28 12:00] LABS: Add Urine Culture? No; Add Urine Microscopic? YES; Bacteria Urine 1+ /hpf; Leukocyte Esterase Urine 1+ (Negative); RBC Urine RARE /hpf (0-2)
[2021-10-28] MEDS: amoxicillin 500 mg Capsule PO (12:03)
[2021-10-28 13:26] LABS: Adenovirus Not Detected (NOT DETECT); Chlamydia Pneumoniae Not Detected (NOT DETECT); Coronavirus 229E,HKU1,NL63,OC4 Not Detected (NOT DETECT); Human Metapneumovirus Not Detected (NOT DETECT); Human Rhinovirus/Enterovirus Not Detected (NOT DETECT); Influenza A Not Detected (NOT DETECT); Influenza A H1 Not Detected (NOT DETECT); Influenza A H1-2009 Not Detected (NOT DETECT); Influenza A H3 Not Detected (NOT DETECT); Influenza B Not Detected (NOT DETECT); Mycoplasma Pneumoniae Not Detected (NOT DETECT); Parainfluenza Virus Type 1 Not Detected (NOT DETECT); Parainfluenza Virus Type 2 Not Detected (NOT DETECT); Parainfluenza Virus Type 3 Not Detected (NOT DETECT); Parainfluenza Virus Type 4 Not Detected (NOT DETECT); Respiratory Syncytial Virus A Not Detected (NOT DETECT); Respiratory Syncytial Virus B Not Detected (NOT DETECT); SARS-COV-2 Not Detected (NOT DETECT)
[2021-10-28 13:40] LABS: Results from GENMARK
== END 2021-10-28 12:26 | disposition home or self-care (01) ==
PROVIDERS: Emergency Provider Physician Assistant
DX: J06.9 Acute upper respiratory infection, unspecified (principal); H65.02 Acute serous otitis media, left ear; R11.0 Nausea; R09.81 Nasal congestion; R19.7 Diarrhea, unspecified; Z20.822 Contact with and (suspected) exposure to COVID-19
CPT/HCPCS: 71045; 81001; 81025; 87631; 87635; 99283

== ENCOUNTER 2022-01-19 04:17 | Emergency (ER) | payer OTHER, SELFPAY ==
--- NOTE | 2022-01-19 04:26 | W.ED.ABDPA2 ---
HPI - Abdominal Pain General: Chief Complaint: Abdominal Pain Stated Complaint: possible bladder infection Time Seen by Provider: 01/19/22 04:19 Source: patient Mode of arrival: ambulatory Limitations: no limitations History of Present Illness: 18-year-old female states over the last 2 days she been having some lower abdominal pain and flank pain along with dysuria. States that she has had urinary tract infections in the past and this feels similar. She states that pain is currently a 3 out of 10 denies any vomiting denies any fever denies any diarrhea. Associated Symptoms: Reports dysuria and nausea; Denies chills and fever(s) Related Data: Date of Last Menstrual Period: 08/03/21 Review of Systems Const: Denies: fever(s), chills, body aches or change in appetite Eyes: Denies: blurry vision or eye discomfort ENMT: Denies: throat pain or dental pain Card: Denies: chest pain Resp: Denies: dyspnea GI: Reports: abdominal pain and nausea : Reports: dysuria Musc: Denies: neck pain or back pain Skin/Breast: Denies: rash Neuro: Denies: headache(s) Psych: Denies: depression Sam/Lymph: Denies: easy bruising All/Imm: Denies: urticaria PFSH ED PFSH: Medical History Asthma Surgical History No pertinent past surgical history Female Reproductive History: Date of last menstrual period: 08/03/21 Physical Exam Const: COMMON NORMALS: no acute distress, patient oriented x3 and healthy appearing HENMT: COMMON NORMALS: normocephalic and atraumatic HEAD & SCALP: normocephalic and atraumatic Eye: COMMON NORMALS: Equal, round and reactive pupils present and EOMs intact bilaterally PUPIL: Yes Equal, round and reactive pupils present Neck/C-Spine: COMMON NORMALS: full ROM and supple Chest: COMMONS NORMALS: normal inspection of the chest and normal palpation of entire chest wall Resp: COMMON NORMALS: normal respiratory effort, No retractions, No use of accessory muscles and clear to auscultation bilaterally AUSCULTATION: clear to auscultation bilaterally Cardio: COMMON NORMALS: regular rate, regular rhythm and No murmurs present (Cardio) RATE: regular rate RHYTHM: regular rhythm GI: COMMON NORMALS: Normal to inspection, nondistended, normoactive bowel sounds present, Soft to palpation, non-tender and no masses PALPATION: Yes Soft to palpation Extremity: COMMON NORMALS: normal to inspection and full ROM Neuro: COMMON NORMALS: patient oriented x3, moves all extremities and no focal motor deficits Psych: COMMON NORMALS: mental status grossly normal, Normal thought process present and cooperative THOUGHT PROCESS: Normal thought process present Skin: COMMON NORMALS: no rashes or lesions noted and no wounds GENERAL SKIN EXAM: no rashes or lesions noted Course Vital Signs: Vital signs: Vital Signs Temperature 98.2 F 01/19/22 04:27 Pulse Rate 88 01/19/22 04:27 Respiratory Rate 18 01/19/22 04:27 Blood Pressure 109/67 01/19/22 04:27 Pulse Oximetry 96 01/19/22 04:27 MDM - Abdominal Pain Medical Decision Making Patient presents here with dysuria likely UTI patient's abdominal exam here is benign no signs of acute surgical abdomen. Will start patient on antibiotics and patient is to follow-up PCP and return if worsening she understands agrees to plan. Lab Data : 01/19/22 04:35 01/19/22 04:35 Labs/Radiology: Laboratory Results WBC 10.0 10^3/uL (4.0-10.0) 01/19/22 04:35 RBC 4.07 10^6/uL (4.1-5.3) L 01/19/22 04:35 Hgb 12.8 g/dL (11.5-15.3) 01/19/22 04:35 Hct 36.2 % (37.0-47.0) L 01/19/22 04:35 MCV 88.9 fl (81-99) 01/19/22 04:35 MCH 31.4 pg (28.0-34.0) 01/19/22 04:35 MCHC 35.4 g/dL (30.0-36.0) 01/19/22 04:35 RDW 11.8 % (12.1-15.1) L 01/19/22 04:35 Plt Count 262 10^3/cmm (130-400) 01/19/22 04:35 MPV 10.1 fL (7.4-10.4) 01/19/22 04:35 Neut % (Auto) 46.2 % 01/19/22 04:35 Lymph % (Auto) 41.2 % 01/19/22 04:35 [place] % (Auto) 10.2 % 01/19/22 04:35 Eos % (Auto) 1.7 % 01/19/22 04:35 Baso % (Auto) 0.5 % 01/19/22 04:35 Neut # (Auto) 4.61 10^3/uL (1.8-7.7) 01/19/22 04:35 Lymph # (Auto) 4.1 10^3/uL (0.8-4.8) 01/19/22 04:35 [place] # (Auto) 1.0 10^3/uL (0.2-0.9) H 01/19/22 04:35 Eos # (Auto) 0.2 10^3/uL (0.0-0.8) 01/19/22 04:35 Baso # (Auto) 0.1 10^3/uL (0.0-0.1) 01/19/22 04:35 Nucleated RBC % (auto) 0 % 01/19/22 04:35 Nucleated RBCs # 0.0 /100WBC 01/19/22 04:35 Sodium 138 mmol/L (136-145) 01/19/22 04:35 Potassium 3.8 mmol/L (3.5-5.1) 01/19/22 04:35 Chloride 102 mmol/L (98-107) 01/19/22 04:35 Carbon Dioxide 25 mmol/L (22-29) 01/19/22 04:35 Anion Gap 14.8 (5-19) 01/19/22 04:35 BUN 11 mg/dL (6-20) 01/19/22 04:35 Creatinine 0.6 mg/dL (0.5-0.9) 01/19/22 04:35 GFR Calculation 118.2 mL/min (90-130) 01/19/22 04:35 Glucose 137 mg/dL (65-115) H 01/19/22 04:35 Calculated Osmolality 288 mOsm/kg (285-295) 01/19/22 04:35 Calcium 9.0 mg/dL (8.5-10.5) 01/19/22 04:35 Total Bilirubin 0.4 mg/dL (0.15-1.2) 01/19/22 04:35 AST 20 U/L (0-32) 01/19/22 04:35 ALT 13 U/L (0-33) 01/19/22 04:35 Alkaline Phosphatase 75 IU/L (35-105) 01/19/22 04:35 Total Protein 6.4 g/dL (6.6-8.7) L 01/19/22 04:35 Albumin 4.4 g/dL (3.5-5.2) 01/19/22 04:35 Globulin 2.0 g/dL (1.3-4.6) 01/19/22 04:35 Lipase 15 U/L (13-60) 01/19/22 04:35 HCG, Qual Negative (Negative) 01/19/22 04:30 Urine Color Yellow (Yellow) 01/19/22 04:30 Urine Appearance Cloudy (CLEAR) 01/19/22 04:30 Urine pH 5 (5-7) 01/19/22 04:30 Ur Specific [place] 1.030 (1.005-1.030) 01/19/22 04:30 Urine Protein Neg (Negative) 01/19/22 04:30 Urine Glucose (UA) Norm (Normal) 01/19/22 04:30 Urine Ketones Negative (Negative) 01/19/22 04:30 Urine Blood Neg (Negative) 01/19/22 04:30 Urine Nitrate Negative (Negative) 01/19/22 04:30 Urine Bilirubin 1+ (Negative) H 01/19/22 04:30 Urine Urobilinogen 1 mg/dL (Negative) H 01/19/22 04:30 Ur Leukocyte Esterase Negative (Negative) 01/19/22 04:30 Urine RBC 0-4 /hpf (0-2) H 01/19/22 04:30 Urine WBC 5-10 /hpf (0-5) H 01/19/22 04:30 Ur Squamous Epith Cells 55-80 /hpf (0-5) H 01/19/22 04:30 Amorphous Sediment Not Reportable 01/19/22 04:30 Urine Bacteria 4+ /hpf (NONE) H 01/19/22 04:30 Discharge Plan Discharge Patient Disposition: Home Clinical Impression: Acute cystitis Qualifiers: Hematuria presence: without hematuria Qualified Code(s): N30.00 - Acute cystitis without hematuria Condition: Stable Prescriptions: New cephalexin 500 mg capsule 500 mg PO TID 7 Days Qty: 21 0RF Naprosyn 500 mg tablet 500 mg PO BID PRN (Reason: pain) Qty: 20 0RF No Action Aleve 220 mg Tablet 220 mg PO PRN 0RF diclofenac potassium 50 mg tablet 50 mg PO TID PRN (Reason: pain) Qty: 15 0RF dicyclomine 20 mg tablet 20 mg PO TID PRN (Reason: abdominal cramping/pain) Qty: 15 0RF Reglan 10 mg tablet 10 mg PO Q6H PRN (Reason: nausea and vomiting) Qty: 20 0RF Miralax 17 gram/dose powder 17 g PO DAILY PRN (Reason: constipation) Qty: 119 0RF ondansetron 4 mg tablet,disintegrating 4 mg PO Q8H PRN (Reason: nausea and vomiting) Qty: 15 0RF Discharge Orders: Discharge ED (Routine); Ordered 01/19/22 Ordered By: Mark Dhillon Discharge Diet: Advance as tolerated Discharge Activity: Resume usual activity Patient Instructions: Urinary Tract Infection in Women (ED) Coding Level of Care Code ED Electronic Sensing Equipment Assembler for Chg Fwd Exam Comprehensive
[2022-01-19 04:27] VITALS: BP 109/67; PULSE 88; RESP 18; TEMP 36.8; O2SAT 96; BMI 24.0
[2022-01-19 04:39] LABS: Basophils # 0.1 10^3/uL (0.0-0.1); Basophils % 0.5 %; Eosinophils # 0.2 10^3/uL (0.0-0.8); Eosinophils % 1.7 %; Hematocrit 36.2 % (37.0-47.0); Hemoglobin 12.8 g/dL (11.5-15.3); Lymphocytes # 4.1 10^3/uL (0.8-4.8); Lymphocytes % 41.2 %; Mean Corpuscular HGB Conc 35.4 g/dL (30.0-36.0); Mean Corpuscular Hemoglobin 31.4 pg (28.0-34.0); Mean Corpuscular Volume 88.9 fl (81-99); Mean Platelet Volume 10.1 fL (7.4-10.4); Monocytes % 10.2 %; Neutrophils # 4.61 10^3/uL (1.8-7.7); Neutrophils % 46.2 %; Nucleated Red Blood Cells % 0 %; Platelet Count 262 10^3/cmm (130-400); Red Blood Count 4.07 10^6/uL (4.1-5.3); Red Cell Distribution Width 11.8 % (12.1-15.1)
[2022-01-19] MEDS: ondansetron 2 mg/ML SDV 2 mL 4 MG IVP (04:41)
[2022-01-19 04:42] LABS: HCG Qualitative Urine. Negative (Negative)
[2022-01-19] MEDS: sodium chloride 0.9% 1,000 ML 999 ML IV (04:42)
[2022-01-19 04:53] LABS: Add Urine Culture? No; Add Urine Microscopic? YES; Bacteria Urine 4+ /hpf; Bilirubin Urine 1+ (Negative); Blood Urine Neg (Negative); Glucose Urine UA Norm (Normal); Ketones Urine Negative (Negative); Leukocyte Esterase Urine Negative (Negative); Nitrate Urine Negative (Negative); Protein Urine Neg (Negative); RBC Urine 0-4 /hpf (0-2); Squamous Epithelial Cell Urine 55-80 /hpf (0-5); Urine Appearance Cloudy (CLEAR); Urine Color Yellow (Yellow); Urobilinogen Urine 1 mg/dL (Negative); pH Urine 5 (5-7)
[2022-01-19 04:59] LABS: Alanine Aminotransferase 13 U/L (0-33); Albumin Level 4.4 g/dL (3.5-5.2); Alkaline Phosphatase 75 IU/L (35-105); Anion Gap 14.8 (5-19); Aspartate Amino Transferase 20 U/L (0-32); Blood Urea Nitrogen 11 mg/dL (6-20); Carbon Dioxide 25 mmol/L (22-29); Chloride 102 mmol/L (98-107); Glomerular Filtration Rate 118.2 mL/min (90-130); Glucose 137 mg/dL (65-115); Lipase 15 U/L (13-60); Osmolality Calculated 288 mOsm/kg (285-295); Potassium 3.8 mmol/L (3.5-5.1); Sodium 138 mmol/L (136-145); Total Bilirubin 0.4 mg/dL (0.15-1.2); Total Protein 6.4 g/dL (6.6-8.7)
[2022-01-19] MEDS: cefTRIAXone 1,000 MG in sodium chloride 0.9% (plus) 50 ML 100 MG IV (05:13)
[2022-01-19 05:37] VITALS: PULSE 68; RESP 16; O2SAT 99
== END 2022-01-19 05:38 | disposition home or self-care (01) ==
PROVIDERS: Emergency Provider Emergency Medicine
DX: N30.00 Acute cystitis without hematuria (principal)
CPT/HCPCS: 80053; 81001; 81025; 83690; 85025; 96365; 96375; 99284; J0696; J2405; J7030

== ENCOUNTER 2022-01-28 06:55 | Emergency (ER) | payer OTHER, SELFPAY ==
[2022-01-28 07:04] VITALS: BP 119/66; PULSE 66; RESP 16; TEMP 36.9; O2SAT 97; BMI 24.7
--- NOTE | 2022-01-28 07:28 | CT_ITS ---
WS: [id number] CT ABDOMEN PELVIS TECHNIQUE: Noncontrast CT of the abdomen and pelvis with coronal and sagittal reformatted images. CLINICAL INFORMATION: abd pain COMPARISON: September 10, 2021 DLP: 880.[address] scans at [facility] use at least one of these dose optimization techniques: automated e xposure control; mA and/or kV adjustment per patient size (includes targeted exams where dose is matc hed to clinical indication); or iterative reconstruction. FINDINGS: Evidence of prior appendectomy. Tubal ligation. Lung bases are well aerated. Normal noncontrast liver . Normal noncontrast spleen. Normal GE junction. No evidence of high-grade small or large bowel obstr uction. Adrenal glands are normal. Moderate LEFT ureterectasis with mild pelvocaliectasis is new from previous. LEFT ureter is dilated into the pelvis. Tiny calculus at the LEFT UVJ measuring 2 mm consi stent with tiny obstructing calculus. This appears new from previous. RIGHT renal pelvis and collecti ng system are decompressed. RIGHT ureter is decompressed. Fluid or endometrial thickening in the uterus. Small amount of free fluid in the pelvis. Multifollicu lar ovaries bilaterally. Prominent multifollicular ovaries bilaterally. RIGHT ovarian cyst measuring 2.2 x 2.1 CM. Normal caliber abdominal aorta. CT/CT abdomen pelvis wo con [id number] IMPRESSION: 1. 2 mm obstructing calculus at the LEFT UVJ with moderate LEFT ureterectasis and mild pelvocaliectasis. 2. Small amount of free fluid in the pelvis likely physiologic. Prominent mult ifollicular ovaries bilaterally. Suggestion of RIGHT ovarian cyst measuring 2.1 x 2.1 CM. 3. No other changes compared to previous 4. Prior appendectomy. Notified Hernandez Davis DO at 01/28/2022 8:52 AM.
[2022-01-28 07:31] VITALS: BP 125/70; PULSE 56; RESP 14; O2SAT 99
--- NOTE | 2022-01-28 07:33 | ED_ITS ---
HPI - Abdominal Pain General: Chief Complaint: Abdominal Pain Stated Complaint: low abd pain/heat exhaustion Time Seen by Provider: 01/28/22 07:10 Source: patient Mode of arrival: ambulatory History of Present Illness: 27-year-old female presents to the emergency room with complaints of abdominal pain localizes the pain to the left lower quadrant. States it began while she was at work yesterday she was not feeling well she was sent home for home heat exhaustion. Seem to get worse overnight and while in route to the emergency room this morning started vomiting. When she arrived here she complaining of severe left lower quadrant abdominal pain and cramping. She is about 1 week out from onset of her menses. She denies any hematemesis coffee-ground emesis. She denies previously having symptoms like this. No dysuria urgency or frequency no hematuria. MD elicited complaint: abdominal pain Pertinent past history: none Onset (ago): hour(s) Pain Consistency: constant Location: LLQ Severity: severe Quality: cramping Radiation: L flank Exacerbating factors: nothing Relieving factors: nothing Associated Symptoms: Reports GI cramping, nausea, poor appetite and vomiting; Denies belching, bloating, change in bowel habits, change in stool character, chills, coffee ground emesis, constipation, diarrhea, dyspepsia, dysuria, excessive flatus, fever(s), heartburn, hematochezia, hematuria, hematemesis, fecal incontinence, loose stools, melena and syncope Related Data: Date of Last Menstrual Period: 01/04/22 Review of Systems Const: Denies: fever(s), chills, body aches, fatigue or malaise ENMT: Denies: throat pain, ear or mastoid pain, nasal discharge or nasal congestion Card: Denies: chest pain, palpitations or syncope Resp: Denies: dyspnea, productive cough or non-productive cough GI: Reports: abdominal pain, nausea, vomiting and GI cramping; Denies: hematemesis, coffee ground emesis, heartburn, diarrhea, constipation, bloating, belching, excessive flatus, fecal incontinence, change in bowel habits, change in stool character, hematochezia or melena : Reports: flank pain; Denies: difficulty voiding, dysuria, urinary frequency, urinary urgency or hematuria Musc: Denies: back pain Skin/Breast: Denies: rash or pruritus PFSH ED PFSH: Medical History Asthma Surgical History No pertinent past surgical history Social History (Updated 01/28/22 @ 07:44 by Hernandez Davis DO) Smoking and tobacco status: current every day smoker Alcohol intake: current Female Reproductive History: Date of last menstrual period: 01/04/22 Physical Exam Const: COMMON NORMALS: no acute distress GENERAL APPEARANCE: cooperative and comfortable ORIENTATION/CONSCIOUSNESS: Yes awake, Yes oriented to person, Yes oriented to place and Yes oriented to time HENMT: COMMON NORMALS: normocephalic, atraumatic and hearing grossly normal bilaterally HEAD & SCALP: normocephalic and atraumatic Neck/C-Spine: COMMON NORMALS: no JVD Resp: COMMON NORMALS: normal respiratory effort, No retractions, No use of accessory muscles and clear to auscultation bilaterally AUSCULTATION: clear to auscultation bilaterally Cardio: COMMON NORMALS: no JVD, regular rate, regular rhythm and No murmurs present (Cardio) RATE: regular rate RHYTHM: regular rhythm GI: COMMON NORMALS: No hepatosplenomegaly present AUSCULTATION: Yes normo active bowel sounds PALPATION: Yes Tenderness to palpation present (GI) D etails: LLQ, No Guarding due to palpation present (GI) and Yes No hepatosplenomegaly present Extremity: COMMON NORMALS: normal to inspection, capillary refill normal, no clubbing, cyanosis or edema, no calf tenderness and no pedal edema Neuro: SENSORIUM/ORIENTATION: Yes oriented to person, Yes oriented to place and Yes oriented to time Skin: COMMON NORMALS: no rashes or lesions noted GENERAL SKIN EXAM: no ra shes or lesions noted Course Vital Signs: Vital signs: Vital Signs Temperature 98.4 F 01/28/22 07:04 Pulse Rate 56 L 01/28/22 07:31 Respiratory Rate 16 01/28/22 07:53 Blood Pressure 125/70 01/28/22 07:31 Pulse Oximetry 96 01/28/22 07:53 MDM - Abdominal Pain Medical Decision Making 2 mm left UVJ stone. Patient's pain well controlled discharged home with Flomax hydrocodone and ondansetron follow-up with Cleary strain for stone. Medical Records I reviewed the patient's medical records. Lab Data I reviewed the patient's lab results. : 01/28/22 07:45 01/28/22 07:45 Labs/Radiology: Radiology Impressions Abdomen/Pelvis CT 01/28/22 07:28 IMPRESSION: 1. 2 mm obstructing calculus at the LEFT UVJ with moderate LEFT ureterectasis and mild pelvocaliectasis. 2. Small amount of free fluid in the pelvis likely physiologic. Prominent mult ifollicular ovaries bilaterally. Suggestion of RIGHT ovarian cyst measuring 2.1 x 2.1 CM. 3. No other changes compared to previous 4. Prior appendectomy. Notified Hernandez Davis DO at 01/28/2022 8:52 AM. Laboratory Results WBC 9.1 10^3/uL (4.0-10.0) 01/28/22 07:45 RBC 4.46 10^6/uL (4.1-5.3) 01/28/22 07:45 Hgb 13.9 g/dL (11.5-15.3) 01/28/22 07:45 Hct 41.3 % (37.0-47.0) 01/28/22 07:45 MCV 92.6 fl (81-99) 01/28/22 07:45 MCH 31.2 pg (28.0-34.0) 01/28/22 07:45 MCHC 33.7 g/dL (30.0-36.0) 01/28/22 07:45 RDW 12.3 % (12.1-15.1) 01/28/22 07:45 Plt Count 303 10^3/cmm (130-400) 01/28/22 07:45 MPV 10.0 fL (7.4-10.4) 01/28/22 07:45 Neut % (Auto) 49.2 % 01/28/22 07:45 Lymph % (Auto) 39.1 % 01/28/22 07:45 Garfield % (Auto) 9.0 % 01/28/22 07:45 Eos % (Auto) 2.1 % 01/28/22 07:45 Baso % (Auto) 0.4 % 01/28/22 07:45 Neut # (Auto) 4.47 10^3/uL (1.8-7.7) 01/28/22 07:45 Lymph # (Auto) 3.6 10^3/uL (0.8-4.8) 01/28/22 07:45 Garfield # (Auto) 0.8 10^3/uL (0.2-0.9) 01/28/22 07:45 Eos # (Auto) 0.2 10^3/uL (0.0-0.8) 01/28/22 07:45 Baso # (Auto) 0.0 10^3/uL (0.0-0.1) 01/28/22 07:45 Nucleated RBC % (auto) 0 % 01/28/22 07:45 Nucleated RBCs # 0.0 /100WBC 01/28/22 07:45 Sodium 140 mmol/L (136-145) 01/28/22 07:45 Potassium 3.8 mmol/L (3.5-5.1) 01/28/22 07:45 Chloride 105 mmol/L (98-107) 01/28/22 07:45 Carbon Dioxide 23 mmol/L (22-29) 01/28/22 07:45 Anion Gap 15.8 (5-19) 01/28/22 07:45 BUN 15 mg/dL (6-20) 01/28/22 07:45 Creatinine 0.6 mg/dL (0.5-0.9) 01/28/22 07:45 GFR Calculation 118.2 mL/min (90-130) 01/28/22 07:45 Glucose 110 mg/dL (65-115) 01/28/22 07:45 Calculated Osmolality 291 mOsm/kg (285-295) 01/28/22 07:45 Calcium 9.0 mg/dL (8.5-10.5) 01/28/22 07:45 Total Bilirubin 0.5 mg/dL (0.15-1.2) 01/28/22 07:45 AST 16 U/L (0-32) 01/28/22 07:45 ALT 11 U/L (0-33) 01/28/22 07:45 Alkaline Phosphatase 70 IU/L (35-105) 01/28/22 07:45 Total Protein 6.4 g/dL (6.6-8.7) L 01/28/22 07:45 Albumin 4.6 g/dL (3.5-5.2) 01/28/22 07:45 Globulin 1.8 g/dL (1.3-4.6) 01/28/22 07:45 HCG, Qual Negative (Negative) 01/28/22 07:45 Urine Color Yellow (Yellow) 01/28/22 07:45 Urine Appearance Cloudy (CLEAR) 01/28/22 07:45 Urine pH 5 (5-7) 01/28/22 07:45 Ur Specific Ruthven 1.030 (1.005-1.030) 01/28/22 07:45 Urine Protein Neg (Negative) 01/28/22 07:45 Urine Glucose (UA) Norm (Normal) 01/28/22 07:45 Urine Ketones 1+ (Negative) H 01/28/22 07:45 Urine Blood 2+ (Negative) H 01/28/22 07:45 Urine Nitrate Negative (Negative) 01/28/22 07:45 Urine Bilirubin 1+ (Negative) H 01/28/22 07:45 Urine Urobilinogen 1 mg/dL (Negative) H 01/28/22 07:45 Ur Leukocyte Esterase Negative (Negative) 01/28/22 07:45 Urine RBC 0-4 /hpf (0-2) H 01/28/22 07:45 Urine WBC 0-4 /hpf (0-5) H 01/28/22 07:45 Ur Squamous Epith Cells 25-40 /hpf (0-5) H 01/28/22 07:45 Amorphous Sediment Not Reportable 01/28/22 07:45 Urine Bacteria Trace /hpf (NONE) 01/28/22 07:45 Urine Mucus 1+ /hpf 01/28/22 07:45 Discharge Plan Discharge Patient Disposition: Home Clinical Impression: Calculus of kidney Condition: Stable Prescriptions: New hydrocodone-acetaminophen 5-325 mg tablet 1 tab PO Q6H PRN (Reason: pain) Qty: 25 0RF ondansetron HCl 4 mg tablet 4 mg PO Q6H PRN (Reason: nausea and vomiting) Qty: 20 0RF Flomax 0.4 mg capsule 0.4 mg PO DAILY Qty: 30 0RF No Action cephalexin 500 mg capsule 500 mg PO TID 0RF ibuprofen 200 mg Tablet 800 mg PO Q8H PRN (Reason: Pain) 0RF omeprazole 20 mg capsule,delayed release(DR/EC) 20 mg PO DAILY 0RF montelukast 10 mg tablet 10 mg PO DAILY PRN (Reason: Congestion) 0RF ProAir HFA 90 mcg/actuation Hfa Aerosol Inhaler 2 puff INHALATION QID PRN (Reason: Shortness Of Breath) 0RF Xopenex HFA 45 mcg/actuation Hfa Aerosol Inhaler 2 inh INHALATION Q6H PRN (Reason: Shortness Of Breath) 0RF Discharge Orders: Discharge ED (Routine); Ordered 01/28/22 Ordered By: Hernandez Davis Patient Instructions: Opioid Safety Coding Level of Care Code ED Mold Dresser for Chg Fwd Exam Comprehensive
[2022-01-28 07:53] VITALS: RESP 16; O2SAT 96
[2022-01-28] MEDS: ondansetron 2 mg/ML SDV 2 mL 4 MG IM (07:53)
[2022-01-28] MEDS: morphine 4 mg/mL SDV 1 mL IM (07:53)
[2022-01-28] MEDS: sodium chloride 0.9% 1,000 ML 999 ML IV ×2 (07:54→09:01)
[2022-01-28 08:07] LABS: Basophils % 0.4 %; Eosinophils # 0.2 10^3/uL (0.0-0.8); Eosinophils % 2.1 %; Hematocrit 41.3 % (37.0-47.0); Hemoglobin 13.9 g/dL (11.5-15.3); Lymphocytes # 3.6 10^3/uL (0.8-4.8); Lymphocytes % 39.1 %; Mean Corpuscular HGB Conc 33.7 g/dL (30.0-36.0); Mean Corpuscular Hemoglobin 31.2 pg (28.0-34.0); Mean Corpuscular Volume 92.6 fl (81-99); Monocytes # 0.8 10^3/uL (0.2-0.9); Neutrophils # 4.47 10^3/uL (1.8-7.7); Neutrophils % 49.2 %; Nucleated Red Blood Cells % 0 %; Platelet Count 303 10^3/cmm (130-400); Red Blood Count 4.46 10^6/uL (4.1-5.3); Red Cell Distribution Width 12.3 % (12.1-15.1); White Blood Count 9.1 10^3/uL (4.0-10.0)
[2022-01-28 08:25] LABS: Add Urine Microscopic? YES; Bacteria Urine TRACE /hpf; Bilirubin Urine 1+ (Negative); Blood Urine 2+ (Negative); Glucose Urine UA Norm (Normal); Ketones Urine 1+ (Negative); Leukocyte Esterase Urine Negative (Negative); Mucus Urine 1+ /hpf; Nitrate Urine Negative (Negative); Protein Urine Neg (Negative); RBC Urine 0-4 /hpf (0-2); Squamous Epithelial Cell Urine 25-40 /hpf (0-5); Urine Appearance Cloudy (CLEAR); Urine Color Yellow (Yellow); Urobilinogen Urine 1 mg/dL (Negative); WBC Urine 0-4 /hpf (0-5); pH Urine 5 (5-7)
[2022-01-28 08:29] LABS: HCG, Serum Qual Negative (Negative)
[2022-01-28 08:32] LABS: Alanine Aminotransferase 11 U/L (0-33); Albumin Level 4.6 g/dL (3.5-5.2); Alkaline Phosphatase 70 IU/L (35-105); Anion Gap 15.8 (5-19); Aspartate Amino Transferase 16 U/L (0-32); Blood Urea Nitrogen 15 mg/dL (6-20); Carbon Dioxide 23 mmol/L (22-29); Chloride 105 mmol/L (98-107); Globulin 1.8 g/dL (1.3-4.6); Glomerular Filtration Rate 118.2 mL/min (90-130); Glucose 110 mg/dL (65-115); Osmolality Calculated 291 mOsm/kg (285-295); Potassium 3.8 mmol/L (3.5-5.1); Sodium 140 mmol/L (136-145); Total Bilirubin 0.5 mg/dL (0.15-1.2); Total Protein 6.4 g/dL (6.6-8.7)
--- NOTE | 2022-01-28 09:31 | PC.NURSE ---
Performed bladder scan on patient and found 0 (zero) ml in patient's bladder.
--- NOTE | 2022-01-28 11:12 | DCPLANNER ---
Addendum entered by Fide Ralph 02/02/22 13:21: Patient had a follow up appointment scheduled for 01.31.22 with Kareen at urology - patient did attend appointment. Original Note: scientific manager had message to schedule a follow up appointment for patient with urology. scientific manager sent patients information to the front office staff at urology. Patients information will be printed and reviewed. Clinic will call patient with appointment information.
== END 2022-01-28 10:15 | disposition home or self-care (01) ==
PROVIDERS: Emergency Provider Family Medicine
DX: N20.0 Calculus of kidney (principal); F17.210 Nicotine dependence, cigarettes, uncomplicated
CPT/HCPCS: 74176; 80053; 81001; 84703; 85025; 96360; 96361; 96372; 99285; J2270; J2405; J7030

== ENCOUNTER 2022-01-31 07:10 | Outpatient (CLI) | payer OTHER, SELFPAY ==
--- NOTE | 2022-01-31 07:00 | XR_ITS ---
WS: [id number] Exam: XR KUB [id number] Date/Time of Exam: 01/31/2022 7:15 AM Reason For Exam: RENAL STONE Comparison 09/30/2021. No bowel obstruction or free air. No sign of organ enlargement. Moderate amount retained stool in the colon. Levoscoliosis the lumbar spine. No calcifications noted in the region o f the kidneys. Nonspecific tiny right pelvic calcification noted. XR/XR KUB [id number] IMPRESSION: 1. No acute abdominal finding.
== END 2022-01-31 07:11 | disposition home or self-care (01) ==
LOC: RAD 07:12
PROVIDERS: PCP Family Medicine; Visit Provider Nurse Practitioner Family
DX: N20.2 Calculus of kidney with calculus of ureter (principal)
CPT/HCPCS: 74018; 81003

== ENCOUNTER 2022-02-07 09:53 | Outpatient (CLI) | payer OTHER, SELFPAY ==
--- NOTE | 2022-02-07 10:00 | XRR_ITS ---
PROCEDURE INFORMATION: Exam: XR Abdomen Exam date and time: 02/07/2022 10:05 AM Age: 27 years old Clinical indication: Condition or disease; Kidney or ureter condition; Calculus (stone) in kidney; Prior surgery; Surgery type: Tubal, appy; Patient HX: History--llq pain x 2 wks; Additional info: Calculus of kidney, kub @ ozh on 02/07/22 @ 10. TECHNIQUE: Imaging protocol: Radiologic exam of the abdomen. Views: Frontal supine view of the abdomen. 1 View. COMPARISON: CR XR KUB [id number] 01/31/2022 7:16 AM FINDINGS: Gastrointestinal tract: Normal. No bowel dilation. There is moderate colonic fecal stasis present. No evidence of bowel obstruction Bones/joints: Unremarkable. New lines examination is negative for radiodense urinary tract stones. XR/XR KUB [id number] IMPRESSION: 1. No acute GI abnormality. 2. Negative for radiodense urinary tract stones.
== END 2022-02-07 09:54 | disposition home or self-care (01) ==
PROVIDERS: PCP Family Medicine; Visit Provider Urology
DX: N20.0 Calculus of kidney (principal)
CPT/HCPCS: 74018; 81003

== ENCOUNTER 2022-02-15 10:07 | Outpatient (CLI) | payer OTHER, SELFPAY ==
--- NOTE | 2022-02-15 10:00 | XR_ITS ---
WS: [id number] XR KUB [id number] REASON FOR EXAM: STONES FINDINGS: No intrarenal calculi are identified. No ureteral or bladder calculi are identified. No other significant abnormality of the abdomen or pelvis. XR/XR KUB [id number] IMPRESSION: No urinary tract calculi are identified.
== END 2022-02-15 10:08 | disposition home or self-care (01) ==
LOC: RAD 10:08
PROVIDERS: PCP Family Medicine; Visit Provider Urology
DX: N20.1 Calculus of ureter (principal); N30.90 Cystitis, unspecified without hematuria
CPT/HCPCS: 74018; 81003

== ENCOUNTER 2022-02-16 07:16 | Day surgery (SDC) | payer OTHER, SELFPAY ==
[2022-02-15 14:49] VITALS: BMI 24.9
[2022-02-16] VITALS (12 sets, daily range): BP systolic 101–119; BP diastolic 50–78; PULSE 59–77; RESP 14–18; TEMP 36.2–36.6; O2SAT 97–100
--- NOTE | 2022-02-16 | SCC_ITS ---
Procedure done: 1. Cystoscopy with left retrograde ureteropyelogram 2. Left ureteroscopy with stent (6 Micronesian by 26 cm double-pigtail WITH string) 44.0 seconds of fluoroscopic guidance, for a cumulative dose of 6.47 mGy, was provided to Dr. Cleary by the radiology department. C-arm images of the abdomen were saved for the patient's permanent record. [facility]
--- NOTE | 2022-02-16 06:57 | W.PM.OPSUD ---
Surgery/Procedure H&P Update DATE OF PROCEDURE: February 16, 2022 DATE H&P PERFORMED: 02/15/22 H&P UPDATE INFORMATION: I have reviewed H&P completed within last 30 days, I have examined patient prior to procedure, No changes to prior documentation and H&P is in [facility] EMR on date indicated PLANNED PROCEDURE: Operation Date: 02/16/22 09:00 Proposed Procedures p CYSTOSCOPY LEFT RETROGRADE URETEROSCOPY LASER STENT 85718- MODIFIER 26 70682,N20.0(Not Applicable) - Amos Cleary MD s Retrograde Pyelogram(Left) - MD mendy Chavez Ureteroscopy(Left) - MD mendy Chavez Laser Lithotripsy(Left) - MD mendy Chavez Ureteral Stent Placement(Left) - Amos Cleary MD
--- NOTE | 2022-02-16 07:30 | SC_ITS ---
WS: [id number] C-arm FL for Urology REASON FOR EXAM: Cystoscopy, left ureteroscopy FINDINGS: Proximal end of left ureteral stent is in proper position. SC/C-arm FL for Urology IMPRESSION: Left ureteral stent as above.
[2022-02-16 07:57] LABS: OR HCG Qualitative Urine Negative (Negative)
[2022-02-16] MEDS: sodium chloride 0.9% 1,000 ML 30 ML IV (08:06)
--- NOTE | 2022-02-16 08:27 | ANES.PREANE2 ---
Pre-Anesthetic Assessment Height/Weight: Height 1.63 m Weight 65.771 kg Temp Pulse Resp BP Pulse Ox O2 Del Method 97.7 F 76 18 112/74 100 02/16/22 07:45 02/16/22 07:45 02/16/22 07:45 02/16/22 07:45 02/16/22 07:45 02/16/22 07:50 Preop Diagnosis: Refractory left distal ureteral stone Operation Date: 02/16/22 09:00 Proposed Procedures p CYSTOSCOPY LEFT RETROGRADE URETEROSCOPY LASER STENT 85201- MODIFIER 26 65960,N20.0(Not Applicable) - Amos Cleary MD s Retrograde Pyelogram(Left) - MD mendy Chavez Ureteroscopy(Left) - Amos Cleary MD s Laser Lithotripsy(Left) - Amos Cleary MD s Ureteral Stent Placement(Left) - Amos Cleary MD Familial anesthetic complications: None Was Beta Luisito taken within 24 hours: N/A Was Clonidine taken within 24 hours: N/A Last intake: Intake Last Liquid Date 02/16/22 Last Liquid Time 01:00 Last Solid Date 02/15/22 Last Solid Time 22:00 Social Tobacco and No alcohol Exam alert, oriented x 3, clear to auscultation bilaterally and regular rate & rhythm Airway Mallampati: Class II Dentition: full Pulmonary Asthma kidney stones GI Gastroesophageal Reflux Disease Anesthetic Plan ASA status: 2 Anesthesia: General Risk of > 500 ml blood loss (7ml/kg in children): No Medications/Allergies Home Medications Medication Instructions Recorded Confirmed Last Taken Type albuterol sulfate 90 mcg/actuation 2 puff inhalation QID PRN 01/28/22 02/16/22 02/14/22 History aerosol inhaler (ProAir HFA) Shortness Of Breath ibuprofen 200 mg tablet 800 mg PO Q8H PRN Pain 01/28/22 02/16/22 02/02/22 History levalbuterol tartrate 45 2 inh inhalation Q6H PRN Shortness 01/28/22 02/15/22 Unknown History mcg/actuation aerosol inhaler Of Breath (Xopenex HFA) montelukast 10 mg tablet 10 mg PO DAILY PRN Congestion 01/28/22 02/16/22 02/14/22 History omeprazole 20 mg capsule,delayed 20 mg PO DAILY 01/28/22 02/16/22 02/08/22 History release ondansetron HCl 4 mg tablet 4 mg PO Q6H PRN nausea and 01/28/22 02/16/22 02/14/22 Rx vomiting #20 tabs Allergies Allergy/AdvReac Type Severity Reaction Status Date / Time No Known Allergies Allergy Verified 02/15/22 14:46 Current Medications Generic Name Dose Route Start Last Admin Trade Name Freq PRN Reason Stop Dose Admin Sodium Chloride 1,000 mls @ 30 mls/hr 02/16/22 08:00 02/16/22 08:06 Sodium Chloride 0.9% IV 02/17/22 07:59 30 mls/hr .Q24H RITA Administration PFSH Anesthesia Medical History Asthma Surgical History History of appendectomy History of tubal ligation No pertinent past surgical history Family History Mother CAD (coronary artery disease) Diabetes Father , at age 49 Diabetes CAD (coronary artery disease) Social History Smoking and tobacco status: current every day smoker Alcohol intake: current Alcohol intake frequency: holidays/special occasions only Household members: children Marital status: Legally Current occupational status: employed History of recent travel: No Female Reproductive History Date of last menstrual period: 01/31/22 Data Anesthesia Cardiac Studies: No Data to Display
[2022-02-16] MEDS: levofloxacin-dextrose 5 % 500 MG/100 ML PREMIX 100 MG IV (09:24)
[2022-02-16] MEDS: iohexol 300 mg/mL 50 mL Btl (OR ONLY) XX (09:51)
--- NOTE | 2022-02-16 10:10 | PM.OP ---
Operative Report Date of procedure: February 16, 2022 Pre-op diagnosis: Refractory left distal ureteral stone Post-op diagnosis: Spontaneously passed left distal ureteral stone Procedure done: 1. Cystoscopy with left retrograde ureteropyelogram 2. Left ureteroscopy with stent (6 Indonesian by 26 cm double-pigtail WITH string) Implants: Left ureteral stent Specimens removed/disposition: None Pathology: None Surgeon: Madiha Anesthesia: General Estimated blood loss: None Urine output: Not measured Complications: None Findings: Stone had spontaneously passed. Ureter carefully inspected with retrograde and ureteroscopy confirming that. Because of dilation of the distal ureter to pass the scope a stent was left indwelling. String attached distally to the stent. We will plan on having her remove it in 2 to 3 days. Condition: Stable Disposition: PACU Brief History: Autumn is a very pleasant 27-year-old white female who about 2 weeks ago was diagnosed with a right distal ureteral stone on CT scan with obstructive changes. It was small and felt that it would likely pass. She continued to be symptomatic. Yesterday she was in the clinic with ongoing symptoms and a KUB was not definitive for stone but there was a hint of a very small calcification in the same area as the CT scan. Because of her ongoing symptoms and her personal desire she elected to proceed with endoscopy. Procedure: After routine preoperative evaluation examination and obtaining of informed consent she was taken to the operating suite on 02/16/2022 where general anesthesia was administered without difficulty after appropriate timeout was performed, SCDs confirmed to be functioning, preoperative antibiotics administered, beta-gideon protocol confirmed. Prepped and draped in usual sterile fashion in dorsolithotomy position paying careful attention to avoiding pressure points. 21 Indonesian cystoscope with 30 degree lens was introduced into the urethra meatus and the bladder was carefully examined. There is no significant edema of the left ureteral orifice. There was no stones in the bladder. An 8 Indonesian cone-tip catheter was intubated to the left ureteral orifice for left retrograde ureteropyelogram. Findings demonstrated what appeared to be normal course and caliber of the ureter. Could not completely rule out a filling defect in the distal ureter but clearly there was no persistent obstruction as demonstrated on the CT scan. A flexible tip guidewire was then passed up the ureter easily. The distal ureter was then dilated with a 15 Indonesian 4 cm balloon in order to facilitate passage of a 7 Indonesian offset semirigid ureteroscope. The scope was passed easily to the UPJ. No stones were identified. Withdrawal the scope was done under direct vision with confirmation of the entry findings. It was decided to place a stent postoperatively to allow for healing and reduce postoperative obstruction from ureteral edema. Cystoscope was then backloaded over the guidewire. A 6 Indonesian by 26 cm double-pigtail stent with string attached distally was then advanced over the guidewire through the cystoscope into appropriate position as confirmed via fluoroscopy and cystoscopy. The bladder was drained. The string was shortened. Stent was confirmed to be functioning well before withdrawal of the cystoscope. She tolerated the procedure well without complications and was awakened in the operating room and returned to the recovery room in stable condition. PLANS: 1. Plan for this stent to remain in place for about 2 to 3 days 2. Follow-up in approximately 2 months with KUB
[2022-02-16] MEDS: fentaNYL 50 mcg/mL INJ 2mL IVP ×2 (10:20→10:31)
[2022-02-16] MEDS: HYDROcodone-acetaminophen 5-325 mg Tablet 1 TAB PO (11:42)
--- NOTE | 2022-02-16 18:05 | ANE.PACU2 ---
Inpatient post-anesthesia follow up: Airway intact: Yes Vital signs: Temperature 97.9 F Pulse Rate 70 Respiratory Rate 16 Blood Pressure 114/62 Pulse Oximetry 99 Oxygen Delivery Me thod Room Air Oxygen Flow Rate 6 Fraction of Inspir ed Oxygen Hydration adequate: Yes Nausea and vomiting: No Pain level: 1 Mental status: Baseline
== END 2022-02-16 12:25 | disposition home or self-care (01) ==
PROVIDERS: PCP Family Medicine; Visit Provider Urology
PROC: 0TJB8ZZ Inspection of Bladder, Via Natural or Artificial Opening Endoscopic (ICD-10-PCS; CPT 52000; principal; 2022-02-16 08:50)
PROC: (CPT 74420; 2022-02-16 08:50)
PROC: 0TJ98ZZ Inspection of Ureter, Via Natural or Artificial Opening Endoscopic (ICD-10-PCS; CPT 52351; 2022-02-16 08:50)
PROC: (CPT 50605; 2022-02-16 08:50)
DX: N20.1 Calculus of ureter (principal); J45.909 Unspecified asthma, uncomplicated; K21.9 Gastro-esophageal reflux disease without esophagitis; F17.200 Nicotine dependence, unspecified, uncomplicated
CPT/HCPCS: 52332; 52351; 76000; 81025; 84703; C2625; J1100; J1956; J2405; J2704; J3010; J7030

== ENCOUNTER 2022-05-17 08:32 | Outpatient (CLI) | payer SELFPAY ==
--- NOTE | 2022-05-17 08:42 | XR_ITS ---
WS: [id number] KUB, AP view, 05/17/2022 Clinical Data: Ureteral Calculus Comparison: KUB, 02/15/2022 Findings: No abnormal intraabdominal masses or calcifications are seen. There is no dilatated small bowel or ev idence of obstruction. There is a large amount of fecal material in the colon. There are no calcifications in the true pelvi s. There is a slight levoscoliosis. XR/XR KUB [id number] Impression: Large amount of fecal material in the colon.
== END 2022-05-17 08:33 | disposition home or self-care (01) ==
LOC: RAD 08:36
PROVIDERS: PCP Family Medicine; Visit Provider Urology
DX: N20.1 Calculus of ureter (principal)
CPT/HCPCS: 74018; 87086

== ENCOUNTER 2023-05-08 20:51 | Emergency (ER) | payer MEDICAID, SELFPAY ==
[2023-05-08 20:59] VITALS: PULSE 88; RESP 16; TEMP 36.7; O2SAT 97; BMI 29.5
--- NOTE | 2023-05-08 21:11 | ED_ITS ---
HPI - Abdominal Pain General: Chief Complaint: Abdominal Pain Stated Complaint: abdomen pain Time Seen by Provider: 05/08/23 21:05 History of Present Illness: patient presents to the ER with complaints of abdominal pain off and on for the last month. The pain is usually low abdomen pelvic region sometimes on the right sometimes on the left sometimes on both sides. Pain seems to be worse when patient bends over and not as bad when patient lies down. Patient denies any nausea vomiting diarrhea fever chills. Patient's had multiple abdominal surgeries. Patient has had no changes in her bowel bladder eating or drinking patterns. Related Data: Date of Last Menstrual Period: 04/17/23 Review of Systems General: Reports: 10 or more systems reviewed and unremarkable except in HPI and below PFSH ED PFSH: Medical History Asthma Urolithiasis Surgical History History of appendectomy History of tubal ligation No pertinent past surgical history Family History Mother CAD (coronary artery disease) Diabetes Father , at age 49 Diabetes CAD (coronary artery disease) Social History Smoking and tobacco/nicotine status: current every day tobacco/nicotine user Alcohol intake: current Alcohol intake frequency: holidays/special occasions only Household members: children Marital status: Legally Current occupational status: employed Female Reproductive History: Date of last menstrual period: 04/17/23 Physical Exam Const: COMMON NORMALS: no acute distress, average body habitus, patient oriented x3, no limitations, healthy appearing, alert and well nourished HENMT: COMMON NORMALS: normocephalic, atraumatic, hearing grossly normal bilaterally, external ears normal, Normal external nose present, moist oral mucous membranes and oropharynx normal HEAD & SCALP: normocephalic and atraumatic NOSE: Normal external nose present EXTERNAL EAR: Yes external ears normal Neck/C-Spine: COMMON NORMALS: full ROM, no lymphadenopathy, supple, no meningeal signs, no JVD and Thyroid normal THYROID: Thyroid normal Chest: COMMONS NORMALS: normal inspection of the chest and normal palpation of entire chest wall Resp: COMMON NORMALS: normal respiratory effort, No retractions, No use of accessory muscles and clear to auscultation bilaterally AUSCULTATION: clear to auscultation bilaterally Cardio: COMMON NORMALS: no JVD, regular rate, regular rhythm, S1 normal heart sound present, S2 normal heart sound present, No gallops present (Cardio), No clicks present (Cardio), No murmurs present (Cardio) and No rub (Cardio) RATE: regular rate RHYTHM: regular rhythm HEART SOUNDS: S1 normal heart sound present and S2 normal heart sound present GI: COMMON NORMALS: Normal to inspection, nondistended, normoactive bowel sounds present, Soft to palpation, non-tender, No hepatosplenomegaly present and no masses PALPATION: Yes Soft to palpation and Yes No hepatosplenomegaly present : COMMON NORMALS: Yes no CVA tenderness BLADDER/KIDNEY EXAM: Yes no CVA tenderness Back/Pelvis: COMMON NORMALS: no CVA tenderness Neuro: COMMON NORMALS: patient oriented x3 SENSORIUM/ORIENTATION: Yes alert MENINGEAL SIGNS: Yes no meningeal signs Course Vital Signs: Vital signs: Vital Signs Temperature 98.0 F 05/08/23 20:59 Pulse Rate 88 05/08/23 20:59 Respiratory Rate 16 05/08/23 20:59 Pulse Oximetry 97 05/08/23 20:59 Oxygen Delivery Me thod Room Air 05/08/23 20:59 MDM - Abdominal Pain Medical Decision Making Patient presents ER with abdominal pain off and on for the last month. Blood work was obtained as well as urine. Both which was essentially benign And did not point to any acute problems. Patient will be discharged and referred back to her family physician for further evaluation and testing. Differential Diagnosis Likely abdominal pain; Unlikely acute appendicitis, calculus of kidney, constipation, diverticulitis, endometriosis, gastroenteritis, pancreatitis or small bowel obstruction Medical Records I reviewed the patient's medical records. Lab Data I reviewed the patient's lab results. 05/08/23 21:22 05/08/23 21:22 Labs/Radiology: Laboratory Results WBC 9.99 10^3/uL (3.29-11.43) 05/08/23 21: RBC 4.36 10^6/uL (3.85-5.65) 05/08/23 21:22 Hgb 13.50 g/dL (11.27-16.99) 05/08/23 21: Hct 40.1 % (36-47) 05/08/23 21:22 MCV 92.0 fl (85-98) 05/08/23 21:22 MCH 31.0 pg (27-33) 05/08/23 21:22 MCHC 33.7 g/dL (30-55) 05/08/23 21:22 RDW 12.0 % (12.1-15.1) L 05/08/23 21:22 Plt Count 321 10^3/cmm (157-399) 05/08/23 21:22 MPV 9.2 fL (7.4-10.4) 05/08/23 21:22 Neut % (Auto) 54.3 % 05/08/23 21:22 Lymph % (Auto) 31.5 % 05/08/23 21:22 [place] % (Auto) 10.8 % 05/08/23 21:22 Eos % (Auto) 2.8 % 05/08/23 21:22 Baso % (Auto) 0.4 % 05/08/23 21:22 Neut # (Auto) 5.42 10^3/uL (1.8-7.7) 05/08/23 21:22 Lymph # (Auto) 3.2 10^3/uL (0.8-4.8) 05/08/23 21:22 [place] # (Auto) 1.1 10^3/uL (0.2-0.9) H 05/08/23 21:22 Eos # (Auto) 0.3 10^3/uL (0.0-0.8) 05/08/23 21:22 Baso # (Auto) 0.0 10^3/uL (0.0-0.1) 05/08/23 21:22 Nucleated RBC % (auto) 0 % 05/08/23 21: Nucleated RBCs # 0.0 /100WBC 05/08/23 21:22 Sodium 137 mmol/L (136-145) 05/08/23 21:22 Potassium 3.9 mmol/L (3.5-5.1) 05/08/23 21:22 Chloride 99 mmol/L (98-107) 05/08/23 21:22 Carbon Dioxide 29 mmol/L (22-29) 05/08/23 21:22 Anion Gap 12.9 (5-19) 05/08/23 21:22 BUN 12 mg/dL (6-20) 05/08/23 21:22 Creatinine 0.5 mg/dL (0.5-0.9) 05/08/23 21:22 GFR Calculation 144.9 mL/min (90-130) H 05/08/23 21:22 Glucose 127 mg/dL (65-115) H 05/08/23 21:22 Calculated Osmolality 285 mOsm/kg (285-295) 05/08/23 21:22 Calcium 9.9 mg/dL (8.5-10.5) 05/08/23 21:22 Total Bilirubin 0.9 mg/dL (0.15-1.2) 05/08/23 21: AST 24 U/L (0-32) 05/08/23 21: ALT 31 U/L (0-33) 05/08/23 21:22 Alkaline Phosphatase 74 U/L (35-105) 05/08/23 21:22 Total Protein 7.1 g/dL (6.6-8.7) 05/08/23 21:22 Albumin 4.6 g/dL (3.5-5.2) 05/08/23 21: Globulin 2.5 g/dL (1.3-4.6) 05/08/23 21:22 Lipase 17 U/L (13-60) 05/08/23 21:22 HCG, Qual Negative (Negative) 05/08/23 21:22 Urine Color Yellow (Yellow) 05/08/23 21:39 Urine Appearance Clear (CLEAR) 05/08/23 21:39 Urine pH 7 (5-7) 05/08/23 21:39 Ur Specific [place] 1.015 (1.005-1.030) 05/08/23 21:39 Urine Protein Neg (Negative) 05/08/23 21:39 Urine Glucose (UA) Norm (Normal) 05/08/23 21:39 Urine Ketones Negative (Negative) 05/08/23 21:39 Urine Blood Neg (Negative) 05/08/23 21:39 Urine Nitrate Negative (Negative) 05/08/23 21:39 Urine Bilirubin Neg (Negative) 05/08/23 21:39 Urine Urobilinogen 1 mg/dL (Negative) H 05/08/23 21:39 Ur Leukocyte Esterase Negative (Negative) 05/08/23 21:39 All radiology interpretation(s) finalized by discharge Discharge Plan Discharge Patient Disposition: Home Clinical Impression: Abdominal pain Qualifiers: Abdominal location: lower abdomen, unspecified Qualified Code(s): R10.30 - Lower abdominal pain, unspecified Condition: Stable Prescriptions: No Action ondansetron HCl 4 mg tablet 4 mg PO Q6H PRN (Reason: nausea and vomiting) Qty: 12 0RF ibuprofen 200 mg Tablet 800 mg PO Q8H PRN (Reason: Pain) omeprazole 20 mg capsule,delayed release(DR/EC) 20 mg PO DAILY montelukast 10 mg tablet 10 mg PO DAILY PRN (Reason: Congestion) albuterol sulfate [ProAir HFA] 90 mcg/actuation Hfa Aerosol Inhaler 2 puff INHALATION QID PRN (Reason: Shortness Of Breath) levalbuterol tartrate [Xopenex HFA] 45 mcg/actuation Hfa Aerosol Inhaler 2 inh INHALATION Q6H PRN (Reason: Shortness Of Breath) hydrocodone-acetaminophen 5-325 mg tablet 1 tab PO Q8H PRN (Reason: pain) Qty: 12 0RF Discharge Orders: Discharge ED (Routine); Ordered 05/08/23 Ordered By: Lan Parada Referrals: Charles Villafana MD [Primary Care Provider] - 1 week Patient Instructions: Abdominal Pain (ED) Activity Restrictions/Additional Instructions: All of your work-up in ER was essentially benign and do not point to an acute cause of your abdominal pain. Please follow-up with your family practice physician in the next 7 to 10 days for further evaluation and treatment. Coding Level of Care Code ED Crystallography Teacher for Gio Simental
[2023-05-08 21:28] LABS: Basophils % 0.4 %; Eosinophils # 0.3 10^3/uL (0.0-0.8); Eosinophils % 2.8 %; Hematocrit 40.1 % (36-47); Lymphocytes # 3.2 10^3/uL (0.8-4.8); Lymphocytes % 31.5 %; Mean Corpuscular HGB Conc 33.7 g/dL (30-55); Mean Platelet Volume 9.2 fL (7.4-10.4); Monocytes # 1.1 10^3/uL (0.2-0.9); Monocytes % 10.8 %; Neutrophils # 5.42 10^3/uL (1.8-7.7); Neutrophils % 54.3 %; Nucleated Red Blood Cells % 0 %; Platelet Count 321 10^3/cmm (157-399); Red Blood Count 4.36 10^6/uL (3.85-5.65); White Blood Count 9.99 10^3/uL (3.29-11.43)
[2023-05-08 21:43] LABS: HCG, Serum Qual Negative (Negative)
[2023-05-08 21:48] LABS: Alanine Aminotransferase 31 U/L (0-33); Albumin Level 4.6 g/dL (3.5-5.2); Alkaline Phosphatase 74 U/L (35-105); Anion Gap 12.9 (5-19); Aspartate Amino Transferase 24 U/L (0-32); Blood Urea Nitrogen 12 mg/dL (6-20); Calcium 9.9 mg/dL (8.5-10.5); Carbon Dioxide 29 mmol/L (22-29); Chloride 99 mmol/L (98-107); Globulin 2.5 g/dL (1.3-4.6); Glomerular Filtration Rate 144.9 mL/min (90-130); Glucose 127 mg/dL (65-115); Lipase 17 U/L (13-60); Osmolality Calculated 285 mOsm/kg (285-295); Potassium 3.9 mmol/L (3.5-5.1); Sodium 137 mmol/L (136-145); Total Bilirubin 0.9 mg/dL (0.15-1.2); Total Protein 7.1 g/dL (6.6-8.7)
[2023-05-08 21:51] LABS: Add Urine Microscopic? NO; Charge for UA Resulting for Rev
[2023-05-08 22:11] LABS: Bilirubin Urine Neg (Negative); Blood Urine Neg (Negative); Glucose Urine UA Norm (Normal); Ketones Urine Negative (Negative); Leukocyte Esterase Urine Negative (Negative); Nitrate Urine Negative (Negative); Protein Urine Neg (Negative); Specific Gravity, Urine 1.015 (1.005-1.030); Urine Appearance Clear (CLEAR); Urine Color Yellow (Yellow); Urobilinogen Urine 1 mg/dL (Negative); pH Urine 7 (5-7)
[2023-05-08 22:32] VITALS: RESP 17
== END 2023-05-08 22:38 | disposition home or self-care (01) ==
PROVIDERS: Emergency Medicine; Emergency Provider Emergency Medicine; PCP Family Medicine
DX: R10.30 Lower abdominal pain, unspecified (principal); Z72.0 Tobacco use
CPT/HCPCS: 36415; 80053; 81003; 83690; 84703; 85025; 99283

== ENCOUNTER 2023-10-15 18:23 | Emergency (ER) | payer MEDICAID, SELFPAY ==
[2023-10-15 18:26] VITALS: BP 114/72; PULSE 83; RESP 17; TEMP 36.7; O2SAT 99; BMI 31.4
--- NOTE | 2023-10-15 18:34 | W.ED.URI ---
HPI - URI/Sore Throat General: Chief Complaint: Upper Respiratory Infection Stated Complaint: sore throat Time Seen by Provider: 10/15/23 18:27 History of Present Illness: 28-year-old female comes in today for complaints of sore throat starting this morning. Patient reports no fever. Patient appears nontoxic. Patient works at a retirement. Patient does have some crusted lesions to her face and she endorses picking at the lesions. Review of Systems General: Reports: 10 or more systems reviewed and unremarkable except in HPI and below PFSH ED PFSH: Medical History Asthma Urolithiasis Surgical History History of appendectomy History of tubal ligation No pertinent past surgical history Family History Mother CAD (coronary artery disease) Diabetes Father , at age 49 Diabetes CAD (coronary artery disease) Social History Smoking and tobacco/nicotine status: current every day tobacco/nicotine user Alcohol intake: current Alcohol intake frequency: holidays/special occasions only Household members: children Marital status: Legally Current occupational status: employed Female Reproductive History: Date of last menstrual period: 09/25/23 Physical Exam Const: COMMON NORMALS: alert HENMT: COMMON NORMALS: normocephalic HEAD & SCALP: normocephalic FACE & SINUS: other (Crusted lesions to the face.) THROAT: posterior oropharynx abnormal erythema Neck/C-Spine: COMMON NORMALS: full ROM Resp: COMMON NORMALS: normal respiratory effort and clear to auscultation bilaterally AUSCULTATION: clear to auscultation bilaterally Cardio: COMMON NORMALS: regular rate RATE: regular rate GI: COMMON NORMALS: Soft to palpation and non-tender PALPATION: Yes Soft to palpation Back/Pelvis: COMMON NORMALS: thoracic and lumbar spine normal to inspection Extremity: COMMON NORMALS: normal to inspection Neuro: SENSORIUM/ORIENTATION: Yes alert Skin: COMMON NORMALS: turgor normal GENERAL SKIN EXAM: turgor normal Course Vital Signs: Vital signs: Vital Signs Temperature 98.1 F 10/15/23 18:26 Pulse Rate 83 10/15/23 18:26 Respiratory Rate 17 10/15/23 18:26 Blood Pressure 114/72 10/15/23 18:26 Pulse Oximetry 99 10/15/23 18:26 Oxygen Delivery Me thod Room Air 10/15/23 18:26 MDM - URI/Sore Throat Medical Decision Making 28-year-old female comes in today with complaints of sore throat starting this morning. On exam patient appears nontoxic. Posterior pharynx is erythematous. Lungs are clear to auscultation. Vital signs are stable. Differential diagnosis includes strep pharyngitis, viral syndrome, upper respiratory infection. Strep test, influenza, and COVID test were all negative. Patient given 10 mg of dexamethasone for comfort. Patient was recommended to use fluids and use acetaminophen and ibuprofen as needed for further relief. Recommend follow-up with primary care return to ED for new concerns. Lab Data Laboratory Results Influenza Type A Ag negative (Negative) 10/15/23 18:40 Influenza Type B Ag negative (Negative) 10/15/23 18:40 SARS-CoV-2 Ag (Rapid) negative (Negative) 10/15/23 18:40 Group A Strep Rapid Negative (Negative) 10/15/23 18:40 No radiology studies performed this visit Discharge Plan Discharge Patient Disposition: Home Clinical Impression: Pharyngitis Qualifiers: Pharyngitis/tonsillitis etiology: unspecified etiology Qualified Code(s): J02.9 - Acute pharyngitis, unspecified Condition: Stable Prescriptions: No Action ondansetron HCl 4 mg tablet 4 mg PO Q6H PRN (Reason: nausea and vomiting) Qty: 12 0RF ibuprofen 200 mg Tablet 800 mg PO Q8H PRN (Reason: Pain) omeprazole 20 mg capsule,delayed release(DR/EC) 20 mg PO DAILY montelukast 10 mg tablet 10 mg PO DAILY PRN (Reason: Congestion) albuterol sulfate [ProAir HFA] 90 mcg/actuation Hfa Aerosol Inhaler 2 puff INHALATION QID PRN (Reason: Shortness Of Breath) levalbuterol tartrate [Xopenex HFA] 45 mcg/actuation Hfa Aerosol Inhaler 2 inh INHALATION Q6H PRN (Reason: Shortness Of Breath) hydrocodone-acetaminophen 5-325 mg tablet 1 tab PO Q8H PRN (Reason: pain) Qty: 12 0RF Discharge Orders: Discharge ED (Routine); Ordered 10/15/23 Ordered By: Bola Lubin Referrals: Charles Villafana MD [Primary Care Provider] - Discharge Diet: Usual diet Discharge Activity: Increase activity as tolerated Patient Instructions: Pharyngitis (ED) Activity Restrictions/Additional Instructions: Drink plenty of water and fluids. Use acetaminophen and ibuprofen as needed for pain and discomfort. Follow-up with primary care for further instructions. Return to ED for new concerns. Coding Level of Care Code ED Berry Picker for Gio Simental
[2023-10-15 19:10] LABS: Influenza A by IFA negative (Negative); Influenza B by IFA negative (Negative); SARS Covid-2 Antigen negative (Negative)
[2023-10-15 19:15] LABS: Rapid Strep A Test Negative (Negative)
[2023-10-15] MEDS: dexamethasone 10 mg/mL INJ IM (19:25)
[2023-10-15 19:27] VITALS: BP 134/82
[2023-10-15 19:29] VITALS: PULSE 60; RESP 16; O2SAT 100
[2023-10-15 20:02] VITALS: BP 137/70; PULSE 66; RESP 16; O2SAT 100
== END 2023-10-15 20:01 | disposition home or self-care (01) ==
PROVIDERS: Emergency Provider Nurse Practitioner Family; PCP Family Medicine
DX: J02.9 Acute pharyngitis, unspecified (principal); Z11.52 Encounter for screening for COVID-19; Z72.0 Tobacco use
CPT/HCPCS: 87081; 87426; 87804; 87880; 96372; 99284; J1100

== ENCOUNTER 2023-11-13 13:21 | Emergency (ER) | payer BC, MEDICAID, SELFPAY ==
[2023-11-13] VITALS (13 sets, daily range): BP systolic 114–126; BP diastolic 58–77; PULSE 63–93; RESP 14–22; TEMP 36.8; O2SAT 96–100; BMI 32.2
--- NOTE | 2023-11-13 13:47 | ECG_ITS ---
[facility] Test Date: 2023-11-13 Pat Name: Autumn Valle Department: Room: Gender: Female Academic Counselor: : 1995 Requested By: Hernandez Anderson Order Number: [id number] Saravia MD: Garett Blanton M.D. Measurements Intervals [place] Rate: 81 P: 20 DE: 118 QRS: 67 QRSD: 89 T: 45 QT: 362 QTc: 422 Interpretive Statements SINUS RHYTHM WITH SHORT DE INTERVAL Compared to ECG 03/17/2017 09:54:37 Short DE interval now present T-wave abnormality no longer present Electronically Signed On 11-13-2023 23:22:10 CDT by Garett Blanton M.D. [id number]
--- NOTE | 2023-11-13 14:01 | ED_ITS ---
HPI - Chest Pain 2 General: Chief Complaint: Chest Pain Stated Complaint: chest pain Time Seen by Provider: 11/13/23 13:46 Source: patient Mode of arrival: ambulatory History of Present Illness: 28-year-old female presents emergency ro om complaining of left-sided chest pain worsening takes a deep breath. No pain with palpation. No fever sweats chills or productive cough. She is also concerned she may be she is previous had a tubal ligation and states she has a positive urine test at home. No hemoptysis. No history of DVT. MD complaint: chest pain Onset (ago): day(s) Timing of current episode: constant Prior episodes: Yes Onset: during rest Pain location: left chest Pain radiation: none Quality: sharp Relieving factors: nothing Exacerbating factors: nothing Associated symptoms: Deny abdominal pain, diaphoresis, dyspnea, fever(s), leg edema, nausea, palpitations, sense of impending doom, syncope or vomiting Treatment prior to arrival: none Review of Systems 2 Const: Denies: fever(s), chills or diaphoresis Card: Denies: chest pain, palpitations or syncope Resp: Denies: dyspnea GI: Denies: abdominal pain, nausea or vomiting : Denies: dysuria, urinary frequency or urinary urgency Musc: Denies: neck pain or back pain Skin/Breast: Denies: rash PFSH ED 2 PFSH: Medical History Urolithiasis Asthma Surgical History History of appendectomy History of tubal ligation No pertinent past surgical history Family History Mother CAD (coronary artery disease) Diabetes Father , at age 49 Diabetes CAD (coronary artery disease) Social History Smoking and tobacco/nicotine status: current every day tobacco/nicotine user Alcohol intake: current Alcohol intake frequency: holidays/special occasions only Household members: children Marital status: Legally Current occupational status: employed Physical Exam 2 Const: GENERAL APPEARANCE: cooperative and comfortable O RIENTATION/CONSCIOUSNESS: Yes awake, Yes oriented to person, Yes oriented to place and Yes oriented to time HENMT: COMMON NORMALS: normocephalic, atraumatic and hearing grossly normal bilaterally HEAD & SCALP: normocephalic and atraumatic Resp: COMMON NORMALS: normal respiratory effort, No retractions, No use of accessory muscles and clear to auscultation bilaterally AUSCULTATION: clear to auscultation bilaterally Cardio: COMMON NORMALS: regular rate, regular rhythm and No murmurs present (Cardio) RATE: regular rate RHYTHM: regular rhythm GI: COMMON NORMALS: Soft to palpation and No hepatosplenomegaly present A USCULTATION: Yes normoactive bowel sounds PALPATION: Yes Soft to palpation, No Tenderness to palpation present (GI), No Guarding due to palpation present (GI) and Yes No hepatosplenomegaly present Extremity: COMMON NORMALS: normal to inspection, capillary refill normal, no clubbing, cyanosis or edema, no calf tenderness and no pedal edema Neuro: SENSORIUM/ORIENTATION: Yes oriented to person, Yes oriented to place and Yes oriented to time Skin: COMMON NORMALS: no rashes or lesions noted GENERAL SKIN EXAM: no rashes or lesions noted Course 2 Vital Signs: Vital signs: Vital Signs Temperature 98.3 F 11/13/23 13:32 Pulse Rate 72 11/13/23 14:50 Respiratory Rate 20 H 11/13/23 14:50 Blood Pressure 114/58 11/13/23 14:50 Pulse Oximetry 99 11/13/23 14:50 Oxygen Delivery Me thod Room Air 11/13/23 14:10 MDM - Chest Pain Medical Decision Making Serum test is negative hemoglobin normal pain reproducible with inspiration EKG normal labs otherwise unremarkable. Discharge patient home with diclofenac to use as needed and to have her follow-up with her primary care doctor for any further symptoms. Repeat chest exam normal Medical Records I reviewed the patient's medical records. Lab Data I reviewed the patient's lab results. 11/13/23 14:10 11/13/23 14:10 Laboratory Results WBC 8.44 10^3/uL (3.29-11.43) 11/13/23 14:10 RBC 4.43 10^6/uL (3.85-5.65) 11/13/23 14:10 Hgb 13.80 g/dL (11.27-16.99) 11/13/23 14:10 Hct 40.5 % (36-47) 11/13/23 14:10 MCV 91.4 fl (85-98) 11/13/23 14:10 MCH 31.2 pg (27-33) 11/13/23 14:10 MCHC 34.1 g/dL (30-55) 11/13/23 14:10 RDW 12.3 % (12.1-15.1) 11/13/23 14:10 Plt Count 336 10^3/cmm (157-399) 11/13/23 14:10 MPV 9.6 fL (7.4-10.4) 11/13/23 14:10 Neut % (Auto) 54.4 % 11/13/23 14:10 Lymph % (Auto) 33.5 % 11/13/23 14:10 [place] % (Auto) 9.1 % 11/13/23 14:10 Eos % (Auto) 2.1 % 11/13/23 14:10 Baso % (Auto) 0.5 % 11/13/23 14:10 Neut # (Auto) 4.59 10^3/uL (1.8-7.7) 11/13/23 14:10 Lymph # (Auto) 2.8 10^3/uL (0.8-4.8) 11/13/23 14:10 [place] # (Auto) 0.8 10^3/uL (0.2-0.9) 11/13/23 14:10 Eos # (Auto) 0.2 10^3/uL (0.0-0.8) 11/13/23 14:10 Baso # (Auto) 0.0 10^3/uL (0.0-0.1) 11/13/23 14:10 Nucleated RBC % (auto) 0 % 11/13/23 14:10 Nucleated RBCs # 0.0 /100WBC 11/13/23 14:10 Sodium 140 mmol/L (136-145) 11/13/23 14:10 Potassium 3.5 mmol/L (3.5-5.1) 11/13/23 14:10 Chloride 102 mmol/L (98-107) 11/13/23 14:10 Carbon Dioxide 27 mmol/L (22-29) 11/13/23 14:10 Anion Gap 14.5 (5-19) 11/13/23 14:10 BUN 10 mg/dL (6-20) 11/13/23 14:10 Creatinine 0.6 mg/dL (0.5-0.9) 11/13/23 14:10 GFR Calculation 117.4 mL/min (90-130) 11/13/23 14:10 Glucose 100 mg/dL (65-115) 11/13/23 14:10 Calculated Osmolality 289 mOsm/kg (285-295) 11/13/23 14:10 Calcium 9.5 mg/dL (8.5-10.5) 11/13/23 14:10 Total Bilirubin 0.8 mg/dL (0.15-1.2) 11/13/23 14:10 AST 29 U/L (0-32) 11/13/23 14:10 ALT 37 U/L (0-33) H 11/13/23 14:10 Alkaline Phosphatase 74 U/L (35-105) 11/13/23 14:10 Total Protein 7.1 g/dL (6.6-8.7) 11/13/23 14:10 Albumin 4.4 g/dL (3.5-5.2) 11/13/23 14:10 Globulin 2.7 g/dL (1.3-4.6) 11/13/23 14:10 HCG, Qual Negative (Negative) 11/13/23 14:10 No radiology studies performed this visit Discharge Plan Discharge Patient Disposition: Home Clinical Impression: Chest pain, pleuritic Condition: Stable Prescriptions: New diclofenac sodium 75 mg tablet,delayed release (DR/EC) 75 mg PO Q12H PRN (Reason: pain) Qty: 20 0RF No Action albuterol sulfate [ProAir HFA] 90 mcg/actuation Hfa Aerosol Inhaler 2 puff INHALATION QID PRN (Reason: Shortness Of Breath) Discharge Orders: Discharge ED (Routine); Ordered 11/13/23 Ordered By: Hernandez Davis Referrals: Charles Villafana MD [Primary Care Provider] - Discharge Diet: Usual diet Discharge Activity: Increase activity as tolerated Patient Instructions: Opioid Safety, Pain Management Activity Restrictions/Additional Instructions: Thank you for choosing [facility] for your healthcare needs today. Please realize this is an emergency room and that we are providing you with a medical screening exam and this may not be complete and all inclusive of all the testing and or work up that you may need to determine your ailment or severity of your illness. It is very important that you follow up as instructed or that you return to the Emergency Department should you have concerns or if your condition changes or worsens in any way. You were seen today for chest discomfort your EKG was normal. Your chest discomfort is pleuritic in nature. You can use the diclofenac as needed. You would also mention to that you were concerned about possibly being a blood test done in the emergency room was negative. If symptoms persist or change recheck. Stand Alone Forms: Work/School Release Coding Level of Care Code ED Manager Telemarketing for Gio Simental
[2023-11-13 14:20] LABS: Basophils % 0.5 %; Eosinophils # 0.2 10^3/uL (0.0-0.8); Eosinophils % 2.1 %; Hematocrit 40.5 % (36-47); Lymphocytes # 2.8 10^3/uL (0.8-4.8); Lymphocytes % 33.5 %; Mean Corpuscular HGB Conc 34.1 g/dL (30-55); Mean Corpuscular Hemoglobin 31.2 pg (27-33); Mean Corpuscular Volume 91.4 fl (85-98); Mean Platelet Volume 9.6 fL (7.4-10.4); Monocytes # 0.8 10^3/uL (0.2-0.9); Monocytes % 9.1 %; Neutrophils # 4.59 10^3/uL (1.8-7.7); Neutrophils % 54.4 %; Nucleated Red Blood Cells % 0 %; Platelet Count 336 10^3/cmm (157-399); Red Blood Count 4.43 10^6/uL (3.85-5.65); Red Cell Distribution Width 12.3 % (12.1-15.1); White Blood Count 8.44 10^3/uL (3.29-11.43)
[2023-11-13 14:32] LABS: Alanine Aminotransferase 37 U/L (0-33); Albumin Level 4.4 g/dL (3.5-5.2); Alkaline Phosphatase 74 U/L (35-105); Anion Gap 14.5 (5-19); Aspartate Amino Transferase 29 U/L (0-32); Blood Urea Nitrogen 10 mg/dL (6-20); Calcium 9.5 mg/dL (8.5-10.5); Carbon Dioxide 27 mmol/L (22-29); Chloride 102 mmol/L (98-107); Creatinine Clr Calc Pharmacy 144.8601; Globulin 2.7 g/dL (1.3-4.6); Glomerular Filtration Rate 117.4 mL/min (90-130); Glucose 100 mg/dL (65-115); HCG, Serum Qual Negative (Negative); Osmolality Calculated 289 mOsm/kg (285-295); Potassium 3.5 mmol/L (3.5-5.1); Sodium 140 mmol/L (136-145); Total Bilirubin 0.8 mg/dL (0.15-1.2); Total Protein 7.1 g/dL (6.6-8.7)
== END 2023-11-13 15:05 | disposition home or self-care (01) ==
PROVIDERS: Emergency Provider Family Medicine; PCP Family Medicine
DX: R09.1 Pleurisy (principal); Z72.0 Tobacco use
CPT/HCPCS: 80053; 84703; 85025; 93005; 99284

== ENCOUNTER 2025-06-16 15:02 | Outpatient (CLI) | payer BC, MEDICAID, SELFPAY ==
--- NOTE | 2025-06-16 15:08 | USR_ITS ---
PROCEDURE INFORMATION: Exam: US Pelvis, Complete, Non-Obstetric Exam date and time: 06/16/2025 3:16 PM Age: 30 years old Clinical indication: Menstruation abnormalities; Amenorrhea TECHNIQUE: Imaging protocol: Transabdominal pelvic nonobstetric ultrasound. Complete exam. Real time ultrasound with image documentation. COMPARISON: US pelv w/transvag [id number] 09/10/2021 3:49 PM FINDINGS: Uterus: Uterus is normal. Endometrial stripe is normal. Right ovary/adnexa: Ovary is normal. No mass. Normal blood flow. Left ovary/adnexa: Ovary is normal. No mass. Normal blood flow. Intraperitoneal space: No intraperitoneal fluid. Urinary bladder: Normal. US/US pelv w/transvag [id number] IMPRESSION: Normal pelvic sonogram
== END 2025-06-16 15:03 | disposition home or self-care (01) ==
PROVIDERS: PCP Family Medicine; Visit Provider Family Medicine
DX: N91.2 Amenorrhea, unspecified (principal)
CPT/HCPCS: 76830; 76856